=== PATIENT | female | born 1960 | race Caucasian/White ===

== ENCOUNTER → 2018-10-22 15:57 | Outpatient (CLI) | payer OTHER, SELFPAY ==
[2018-10-25 09:45] LABS: HPV Reflexed? NOT INDICATED
== END ==
PROVIDERS: Family Provider Family Medicine; PCP Family Medicine; Visit Provider Family Medicine
DX: Z12.4 Encounter for screening for malignant neoplasm of cervix (principal)
CPT/HCPCS: 88175; G0145

== ENCOUNTER → 2019-01-09 09:39 | Outpatient (CLI) | payer OTHER, SELFPAY ==
[2019-01-09 12:51] LABS: Absolute Lymphocyte Count 2.86 X10^3/ul (0.83-4.51); Absolute Neutrophil Count 5.5 X10^3/uL (2.0-7.7); Basophil# 0.06 X10^3/uL; Basophil% 0.6 % (0-1); Eosinophil# 0.19 X10^3/uL; Hematocrit 44.9 % (37-47); Hemoglobin 15.1 g/dl (12.0-15.0); Lymphocyte # 2.86 X10^3/ul (4.0); Lymphocyte % 29.6 % (19-41); Mean Corp Hgb Conc 33.6 g/gl (32-36); Mean Corpuscular Hgb 29.3 pg (27.0-32.0); Mean Corpuscular Volume 87.2 fL (81-99); Mean Platelet Vol. 10.2 fl (6.2-12.0); Monocyte# 1.03 X10^3/uL; Monocyte% 10.7 % (0-10); Neutrophil # 5.49 X10^3/uL (2.7-7.7); Neutrophil % 56.9 % (47-70); Platelet Count 311 K/mm3 (150-450); RBC Distribution Width CV 12.9 % (11.6-14.6); RBC Distribution Width SD 40.5 fl (35.1-43.9); Red Blood Count 5.15 M/mm3 (4.2-5.4); White Blood Count 9.7 K/mm3 (4.4-11.0)
[2019-01-09 12:52] LABS: POSITIVE COUNT NO; POSITIVE DIFFERENTIAL NO; POSITIVE MORPHOLOGY NO
[2019-01-09 12:57] LABS: Microalbumin:Creatinine Ratio 12.2 mg/g CRE (<30 mg/g CRE)
[2019-01-09 12:59] LABS: AST(SGOT) 21 U/L (15-37); Alanine Aminotransfer ALT/SGPT 27 U/L (13-56); Albumin, Serum 3.6 g/dL (3.2-5.0); Alkaline Phosphatase 110 U/L (45-117); Anion Gap 7 (5-15); BUN 15 mg/dL (7-18); BUN/Creat Ratio 17.4 RATIO (10-20); Calcium,Total 9.1 mg/dL (8.5-10.1); Chloride 108 mmol/L (98-107); Cholesterol 222 mg/dL (200); Creatinine, Serum 0.86 mg/dL (0.55-1.02); EST Glomerular Filtration Rate 72 mL/min (>60); Est Glom Filt Rate - Afr Amer 88 mL/min (>60); Globulin 3.7 g/dL (2.2-4.2); Glucose 166 mg/dL (74-106); High Density Lipoprotein 52 mg/dL; Potassium 4.3 mmol/L (3.5-5.1); Protein, Total 7.3 g/dL (6.4-8.2); Sodium Level 139 mmol/L (136-145); Triglycerides 183 mg/dL; Very Low Density Lipoprotein 37 mg/dL (5-40)
[2019-01-09 13:10] LABS: Hemoglobin A1c 7.3 % (4.2-6.3)
[2019-01-10 09:16] LABS: Color, Urine Yellow (Yellow); Glucose, Dipstick Normal (Normal); Ketone-Dipstick 5 mg/dl (Negative); Leukocyte Esterase-Dipstick 500 /ul (Negative); Nitrite-Dipstick Positive (Negative); Occult Blood-Urine 50 /ul (Negative); Protein-Dipstick Negative (Negative); Specific Gravity, Urine 1.025 (1.002-1.030); Urine Bilirubin Dipstick Negative (Negative); Urine Clarity Cloudy (Clear); Urine Urobilinogen Normal (Normal)
[2019-01-10 09:30] LABS: Mucous, Urine 0 SEEN /hpf (<or=2+); Red Blood Cells-Urine 0 SEEN /hpf (0-5)
[2019-01-10 09:31] LABS: Bacteria 4+ /hpf (None Seen); Squamous Epithelial Cells - UA 0-5 SEEN /hpf (5-10); White Blood Cells 0-5 SEEN /hpf (0-5)
== END ==
PROVIDERS: Family Provider Family Medicine; PCP Family Medicine; Visit Provider Family Medicine
DX: E11.65 Type 2 diabetes mellitus with hyperglycemia (principal); E78.5 Hyperlipidemia, unspecified; R53.83 Other fatigue
CPT/HCPCS: 36415; 80053; 80061; 81001; 82043; 82570; 83036; 85025; 87086; 87088; 87186

== ENCOUNTER → 2019-05-13 | Outpatient (CLI) | payer OTHER, SELFPAY | END | disposition home or self-care (01) | LOC: BFHLAB 15:56 | PROVIDERS: Family Provider Family Medicine; PCP Family Medicine; Visit Provider Family Medicine | DX: L03.113 Cellulitis of right upper limb (principal) | CPT/HCPCS: 87070; 87077; 87186; 87205 ==

== ENCOUNTER → 2019-06-17 | Outpatient (CLI) | payer OTHER, SELFPAY ==
[2019-05-24 09:47] VITALS: BMI 34.6
== END | disposition home or self-care (01) ==
LOC: BFHLAB 06-18 09:29
PROVIDERS: Family Provider Family Medicine; PCP Family Medicine; Visit Provider Family Medicine
DX: N30.00 Acute cystitis without hematuria (principal)
CPT/HCPCS: 87086; 87088

== ENCOUNTER 2019-07-07 17:09 | Emergency (ER) | payer OTHER, SELFPAY ==
[2019-05-24 09:47] VITALS: BMI 34.6
[2019-07-07 17:11] VITALS: BP 162/79; PULSE 81; RESP 17; TEMP 36.8; O2SAT 99; BMI 33.4
--- NOTE | 2019-07-07 17:57 | ED.VISSUMM ---
- ER Visit Summary Date of Service: 07/07/19 Chief Complaint: Abscess History of Present Illness: The patient is a 58 F who presents with abscess that is been getting progressively worse over the past 5 days. Patient states the pain is gradually gotten worse. Patient describes the pain as sharp and aching. Patient states her primary care physician called her and for doxycycline. Patient states this has not helped. Patient states her pain is worse with sitting. Patient admits to subjective fever at home. Patient admits to some drainage from the area. Physical Examination: Vital signs are stable. Patient is afebrile. Patient is in no acute distress. Oral mucosa is pink and moist. Neck is supple. Trachea is midline. There is no JVD noted. Heart was regular rate and rhythm. Lungs are clear and equal bilaterally. Abdomen is soft. Bowel sounds are normal. There is no tenderness. There is edema, erythema, and drainage from the left labia majora. There is tenderness to palpation. Cranial nerves II through XII are intact. There are no focal motor or sensory deficits noted. Test Results: CBC showed a mild leukocytosis of 11.6. Basic metabolic profile was essentially within normal limits. Emergency Department Course and Treatment: The right labial area was cleaned and anesthetized with 1% plain lidocaine locally. A cruciate incision was made using a #11 blade scalpel. Moderate amount of purulent drainage was expressed. Hemostats were used to break up loculations. Patient was unable to tolerate irrigation of the wound. Patient was given a dose of morphine prior to the procedure. Patient was given a dose of clindamycin here. Patient was instructed to use warm sitz baths. Patient was instructed to continue her doxycycline as previously prescribed. Patient was given a prescription for a short course of [place]. Patient was instructed to follow-up with her primary care physician in 3 to 5 days. Patient and family understood and were agreeable with the plan. All questions were answered. Disposition: Discharge home Impression: Left labial abscess This note was generated with [employer] dictation software. It may contain incorrect words, spelling, and punctuation that were not noted in review of the chart prior to signing ED Disposition - Plan for ED Patient: Disposition: Home or Assisted Living Diagnosis: Abscess of left genital labia Instructions: ABSCESS, Incision and Drainage Prescriptions: Hydrocodone Bitart/Apap 5-325 [[place] 5MG-325MG] 1 tab PO Q6H PRN PRN 3 Days #10 tab PRN Reason: Pain Prescription Printed Referrals: Leilani Brantley [Primary Care Provider] - 3-5 Days
[2019-07-07] MEDS: Morphine 4 MG/ML Syringe IV (18:05)
[2019-07-07] MEDS: 0.9% Normal Saline 1,000 ML 500 ML IV (18:05)
[2019-07-07 18:23] LABS: Absolute Lymphocyte Count 4.04 X10^3/uL (0.83-4.51); Absolute Neutrophil Count 6.2 X10^3/uL (2.0-7.7); Basophil# 0.08 X10^3/uL; Basophil% 0.7 % (0-1); Eosinophil# 0.14 X10^3/uL; Eosinophils% 1.2 % (0-5); Hematocrit 41.9 % (37-47); Lymphocyte # 4.04 X10^3/ul (4.0); Lymphocyte % 34.9 % (19-41); Mean Corp Hgb Conc 33.4 g/dL (32-36); Mean Corpuscular Hgb 28.4 pg (27.0-32.0); Mean Platelet Vol. 9.5 fl (6.2-12.0); Monocyte# 0.98 X10^3/uL; Monocyte% 8.5 % (0-10); NRBC Flagged by Analyzer 0 % (0-5); Neutrophil # 6.24 X10^3/uL (2.7-7.7); Neutrophil % 53.9 % (47-70); Platelet Count 397 K/mm3 (150-450); RBC Distribution Width CV 11.7 % (11.6-14.6); RBC Distribution Width SD 35.8 fl (35.1-43.9); Red Blood Count 4.93 M/mm3 (4.2-5.4); White Blood Count 11.6 K/mm3 (4.4-11.0)
[2019-07-07 18:36] LABS: Anion Gap 13 (5-15); BUN 15 mg/dL (7-18); BUN/Creat Ratio 21.2 RATIO (10-20); Calcium,Total 9.6 mg/dL (8.5-10.1); Chloride 102 mmol/L (98-107); Creatinine, Serum 0.71 mg/dL (0.55-1.02); EST Glomerular Filtration Rate 91 mL/min (>60); Est Glom Filt Rate - Afr Amer 110 mL/min (>60); Estimated Creatinine Clearance 89.25 ml/min; Glucose 178 mg/dL (74-106); Potassium 3.5 mmol/L (3.5-5.1); Sodium Level 139 mmol/L (136-145)
[2019-07-07 20:16] VITALS: BP 125/69; PULSE 67; RESP 18; O2SAT 97
== END 2019-07-07 20:17 | disposition home or self-care (01) ==
PROVIDERS: Emergency Provider Emergency Medicine; Family Provider Family Medicine; PCP Family Medicine
DX: N76.4 Abscess of vulva (principal); E66.9 Obesity, unspecified; E11.9 Type 2 diabetes mellitus without complications
CPT/HCPCS: 56405; 80048; 85025; 96365; 96366; 96375; 99283; J7030; A4216

== ENCOUNTER → 2021-02-19 12:36 | Outpatient (CLI) | payer OTHER, MEDICARE, SELFPAY ==
--- NOTE | 2021-02-19 12:37 | MRI_ITS ---
STUDY: MRI RIGHT WRIST WITHOUT CONTRAST REASON FOR EXAM: Right hand and arm numbness, pain. TECHNIQUE: Standardized fat and water weighted pulse sequences were obtained in all 3 orthogonal planes. COMPARISON: Radiographs 12/29/2020, 11/19/2020. FINDINGS: Normal visualized distal radius and ulna. Normal distal radioulnar articulation (DRUJ). Normal triangular fibrocartilaginous complex (TFCC). There is a small cyst in the scaphoid (inversion recovery coronal image 14). Otherwise, unremarkable carpal bones. Normal radiocarpal, intercarpal and midcarpal articulations. Normal pisotriquetral articulation. Normal visualized interosseous scapholunate ligament. Normal extensor tendons. There is mild flexor tenosynovitis (inversion recovery axial images 3-26). Normal visualized median nerve. Normal carpometacarpal articulation of the thumb. Normal second through fifth carpometacarpal articulations. Normal visualized metacarpal bones. There is no demonstrated soft tissue abnormality. MRI/Upper Ext Joint Only(Routine) IMPRESSION: Mild flexor tenosynovitis. Electronically Signed: Berhane Georges MD at 13:56 EDT Tel , Service support ,
== END ==
PROVIDERS: PCP Family Medicine; Referring Provider Orthopaedic Surgery; Visit Provider Orthopaedic Surgery
DX: M25.331 Other instability, right wrist (principal)
CPT/HCPCS: 73221

== ENCOUNTER → 2022-02-09 | Outpatient (CLI) | payer OTHER, MEDICARE, SELFPAY ==
[2022-02-09 17:05] LABS: Absolute Lymphocyte Count 3.95 X10^3/uL (0.83-4.51); Absolute Neutrophil Count 5.6 X10^3/uL (2.0-7.7); Basophil# 0.09 X10^3/uL; Basophil% 0.8 % (0-1); Eosinophil# 0.14 X10^3/uL; Eosinophils% 1.3 % (0-5); Hematocrit 42.4 % (37-47); Hemoglobin 13.3 g/dL (12.0-15.0); Lymphocyte # 3.95 X10^3/ul (0.83-4.51); Lymphocyte % 36.4 % (19-41); Mean Corp Hgb Conc 31.4 g/dL (32-36); Mean Corpuscular Hgb 26.3 pg (27.0-32.0); Mean Corpuscular Volume 83.8 fL (81-99); Mean Platelet Vol. 9.2 fl (6.2-12.0); Monocyte# 1.02 X10^3/uL; Monocyte% 9.4 % (0-10); NRBC Flagged by Analyzer 0 % (0-5); Neutrophil % 51.6 % (47-70); Platelet Count 469 K/mm3 (150-450); RBC Distribution Width SD 42.7 fl (35.1-43.9); Red Blood Count 5.06 M/mm3 (4.2-5.4); White Blood Count 10.9 K/mm3 (4.4-11.0)
[2022-02-09 17:58] LABS: ALB/GLOB Ratio 0.6 RATIO (0.9-2.4); AST(SGOT) 11 U/L (15-37); Alanine Aminotransfer ALT/SGPT 16 U/L (13-56); Albumin, Serum 2.9 g/dL (3.2-5.0); Alkaline Phosphatase 121 U/L (45-117); Anion Gap 8 (5-15); BUN 20 mg/dL (7-18); BUN/Creat Ratio 24.9 RATIO (10-20); Calcium,Total 9.1 mg/dL (8.5-10.1); Chloride 101 mmol/L (98-107); Cholesterol 190 mg/dL (200); EST Glomerular Filtration Rate 78 mL/min (>60); Est Glom Filt Rate - Afr Amer 94 mL/min (>60); Globulin 4.9 g/dL (2.2-4.2); Glucose 176 mg/dL (74-106); High Density Lipoprotein 44 mg/dL; Potassium 4.1 mmol/L (3.5-5.1); Protein, Total 7.8 g/dL (6.4-8.2); Sodium Level 135 mmol/L (136-145); Triglycerides 232 mg/dL; Very Low Density Lipoprotein 46 mg/dL (5-40)
[2022-02-09 18:00] LABS: Microalbumin,Random Urine 50.1 mg/L (NO RANGE EST.); Microalbumin:Creatinine Ratio 25.2 mg/g CRE (<30 mg/g CRE)
[2022-02-09 18:25] LABS: Erythrocyte Sedimentation Rate 81 mm/hr (0-30)
[2022-02-11 20:01] LABS: ANTINUCLEAR ANTIBODIES DIRECT Negative (Negative)
[2022-02-12 10:50] LABS: CCP IgG Antibodies > 250 units (0-19)
== END | disposition home or self-care (01) ==
LOC: LAB 15:57
PROVIDERS: PCP Family Medicine; Referring Provider Family Medicine; Visit Provider Family Medicine
DX: Z00.00 Encounter for general adult medical examination without abnormal findings (principal); E11.65 Type 2 diabetes mellitus with hyperglycemia; M25.50 Pain in unspecified joint; M79.10 Myalgia, unspecified site; Z51.81 Encounter for therapeutic drug level monitoring
CPT/HCPCS: 36415; 80053; 80061; 82043; 82570; 85025; 85652; 86038; 86140; 86200; 86225; 86235; 86431

== ENCOUNTER 2023-02-08 13:22 | Emergency (ER) | payer MEDICARE, SELFPAY ==
[2023-02-08 13:23] VITALS: BP 182/119; PULSE 99; RESP 16; TEMP 36.6; O2SAT 98
--- NOTE | 2023-02-08 13:40 | EDS_ITS ---
HPI HPI - GI History of Present Illness Chief Complaint: Nausea/Vomiting/Diarrhea Informant: patient Nausea/Vomiting/Emesis GI Symptom: Positive for Nausea and Vomiting Onset: Weeks (1) Quality: Positive for Nonbilious; Negative for Blood streaks, Coffee ground or Hematemesis Diarrhea/Melena/Hematochezia GI Symptom: Positive for Diarrhea and Melena; Negative for Hematochezia Onset: Weeks (1) Stool Quality: Positive for Watery and Black Associated Symptoms Associated Symptoms: Negative for Dysuria, Frequency or Hematuria Narrative Narrative: Patient presents with nausea, vomiting, and diarrhea that has been constant for the past week. Patient states that she felt like she just had the flu and it would get better. Patient states it has been persistent. Patient states that today she noted some dark stools. Patient denies any hematemesis or coffee- ground emesis. Patient states she is unable to keep anything down including water and fluids. Patient denies any abdominal pain. Patient denies any fevers or chills. Patient denies any dysuria, hematuria, urinary frequency. Patient does admit to a mild headache. [facility] Medical History abscess right facial cheek abscess right wrist Anxiety disorder Carpal tunnel syndrome Depression Diabetes High cholesterol IBS (irritable bowel syndrome) Leukocytosis Polyclonal gammopathy Home Medications glipizide 10 mg tablet 10 mg PO DAILY@0730 06/14/17 [History Last Taken Unknown] venlafaxine 150 mg tablet,extended release 24 hr 150 mg PO DAILY 06/14/17 [History Last Taken 06/16/17 06:00] zolpidem 10 mg tablet 10 mg PO QHS 06/14/17 [History Last Taken Unknown] gabapentin 600 mg tablet,extended release 24 hr 600 mg PO TID 05/24/19 [History Last Taken Unknown] sitagliptin phos 100 mg-metformin ER 1,000 mg tablet,extend rel 24h mp (Janumet XR) 1 tab PO DAILY 05/24/19 [History Last Taken Unknown] tizanidine 4 mg capsule 4 mg PO TID 05/24/19 [History Last Taken Unknown] meloxicam 15 mg tablet (Mobic) 15 mg PO DAILY #30 tabs 03/12/21 [Rx Last Taken Unknown] insulin degludec 100 unit/mL (3 mL) subcutaneous pen (Tresiba FlexTouch U-100 insulin) 26 unit subcut DAILY 06/17/22 [History Last Taken Unknown] leucovorin calcium 5 mg tablet tablet PO 06/17/22 [History Last Taken Unknown] lorazepam 0.5 mg tablet 0.5 mg PO BID 06/17/22 [History Last Taken Unknown] Allergy/AdvReac Type Severity Reaction Status Date / Time No Known Allergies Allergy Verified 02/08/23 13:24 Family History Brother Colon cancer Father Hypertension Mother Hypertension Diabetes Surgical History history anterior cervical laminectomy history closed reduction nasal fracture History of right knee surgery History of tubal ligation history right ankle surgery Social History household members: spouse and other details: father housing: house Smoking Status: Former smoker quit date: 10/09/05 how long ago did patient quit smoking: smoked 1-1.5yrs alcohol intake: current alcohol intake frequency: a few times a week substance use type: does not use what type of physical activity do you participate in: none do you feel safe at home: Yes ROS ROS ED Constitutional Constitutional ED: Denies chills or fever(s) Eyes Eyes: Denies blurry vision or change in vision ENT ENT ED: Denies rhinorrhea or sore throat Cardiovascular Cardiovascular: Denies chest pain or palpitations Respiratory/Chest Respiratory/Chest: Reports cough; Denies dyspnea Gastrointestinal Gastrointestinal: Reports diarrhea, nausea and vomiting; Denies abdominal pain Genitourinary Genitourinary ED: Denies dysuria or hematuria Musculoskeletal Musculoskeletal: Denies back pain or neck pain Integumentary Denies abscess or rash Neurologic Neurologic: Reports headache(s); Denies weakness Allergic/Immunologic Allergic/Immunologic ED: Denies mouth swelling or urticaria EXAM Physical Exam Const Vital Signs: 02/08/23 13:23 Temperature 97.8 F Temperature Source Temporal Pulse Rate 99 Respiratory Rate 16 Blood Pressure 182/119 H Blood Pressure Mean 140 Pulse Ox 98 Oxygen Delivery Method Room Air Positive well nourished, well developed and obese General Appearance ED: well developed and NAD Nutritional Appearance: obese HEENT Reports moist mucous membranes Neck supple and no JVD Resp normal respiratory effort and clear to auscultation bilaterally Cardio regular rate and regular rhythm GI normal to inspection, nondistended, normoactive bowel sounds Palpation: soft and tender epigastric, LLQ, RLQ, LUQ, RUQ, periumbilical and suprapubic; Negative for guarding or rebound tenderness present Rectal Exam: visual inspection normal and normal sphincter tone Extremity normal to inspection General Extremety ED: Negative for edema or tenderness General Extremity: Negative for edema Neuro oriented x3, CN's II-XII intact bilaterally and no sensory deficits noted Sensorium / Orientation: alert Motor Exam: strength 5/5 throughout Psych mental status grossly normal Skin no rashes or lesions noted MDM MDM MDM Narrative Medical decision making narrative: Functional diagnosis includes gastroenteritis, colitis, diverticulitis, diabetic ketoacidosis, bowel obstruction, perforation, pancreatitis, urinary tract infection, pyelonephritis, and mesenteric adenitis. CBC will be obtained to assess for leukocytosis and anemia. Comprehensive metabolic profile will be obtained to assess for hepatic function, renal function, and electrolyte abnormality. Lipase will be obtained to assess for pancreatitis. Serum acetone will be obtained to assess for ketosis. Urinalysis will be obtained to assess for urinary tract infection and hematuria. CT scan of the abdomen pelvis will be obtained to assess for bowel obstruction and perforation. Stool specimen will be obtained to assess for occult bleeding. Lab Data Attestation: I reviewed the patient's lab results. Lab results narrative: CBC was reviewed. There is a slight leukocytosis of 11.3. Hemoglobin was 16.3 and hematocrit is 47.1. Comprehensive metabolic profile was reviewed. Sodium was slightly low at 125. Potassium was 2.9. Chloride was 85. Anion gap was slightly elevated at 17. CO2 was normal at 23. Glucose was elevated at 317. Lipase was within normal limits. Serum acetone level was reviewed and was small. Labs: Laboratory Results - last 24 hr 02/08/23 02/08/23 02/08/23 14:00 14:00 14:00 WBC 11.3 H RBC 5.90 H Hgb 16.3 H Hct 47.1 H MCV 79.8 L MCH 27.6 MCHC 34.6 RDW Std Deviation 37.1 RDW Coeff of Ned 12.9 Plt Count 250 MPV 10.0 Immature Gran % (Auto) 1.800 H Neut % (Auto) 77.2 H Lymph % (Auto) 12.8 L [place] % (Auto) 7.5 Eos % (Auto) 0.3 Baso % (Auto) 0.4 Absolute Neuts (auto) 8.7 H Absolute Lymphs (auto) 1.45 Nucleated RBC % 0 Sodium 125 L Potassium 2.9 L Chloride 85 L Carbon Dioxide 23.0 Anion Gap 17 H BUN 24 H Creatinine 0.82 Estim Creat Clear Calc 70.95 Est GFR (MDRD) Af Amer 91 Est GFR (MDRD) Non-Af 75 BUN/Creatinine Ratio 29.1 H Glucose 317 H Calcium 8.9 Total Bilirubin 0.50 AST 39 H ALT 31 Alkaline Phosphatase 115 Total Protein 7.5 Albumin 2.2 L Globulin 5.3 H Albumin/Globulin Ratio 0.4 L Lipase 75 Acetone Level SMALL H Treatment and Re-Evaluation :: Patient was given IV fluids, morphine, and Zofran. Care of patient turned over to the oncoming physician pending lab results and CT results. Discharge Plan Triage Chief Complaint: Nausea/Vomiting/Diarrhea ED Provider: Abelardo Truong Dx/Rx/DC Orders Clinical Impression: Nausea, vomiting, and diarrhea, Hyponatremia, Hypokalemia, Hyperglycemia Prescriptions: No Action Janumet XR 100-1,000 mg tablet, ER multiphase 24 hr 1 tab PO DAILY tizanidine 4 mg capsule 4 mg PO TID meloxicam [Mobic] 15 mg tablet 15 mg PO DAILY Qty: 30 0RF leucovorin calcium 5 mg tablet PO Tresiba FlexTouch U-100 100 unit/mL (3 mL) insulin pen 26 unit subcut DAILY lorazepam 0.5 mg tablet 0.5 mg PO BID Label Comments: TAKE 1 TABLET BY MOUTH TWICE A DAY NEEDED FOR ANXIETY glipizide 10 MG tablet 10 mg PO DAILY@0730 zolpidem 10 MG tablet 10 mg PO QHS venlafaxine 150 MG tablet extended release 24hr 150 mg PO DAILY gabapentin 600 mg tablet extended release 24 hr 600 mg PO TID Primary Care Provider: Leilani Brantley Referrals: Leilani Brantley OLS [[facility]] -
[2023-02-08 14:15] LABS: Absolute Lymphocyte Count 1.45 X10^3/uL (0.83-4.51); Absolute Neutrophil Count 8.7 X10^3/uL (2.0-7.7); Basophil# 0.04 X10^3/uL; Basophil% 0.4 % (0-1); Eosinophil# 0.03 X10^3/uL; Eosinophils% 0.3 % (0-5); Hematocrit 47.1 % (37-47); Hemoglobin 16.3 g/dL (12.0-15.0); Lymphocyte # 1.45 X10^3/ul (0.83-4.51); Lymphocyte % 12.8 % (19-41); Mean Corp Hgb Conc 34.6 g/dL (32-36); Mean Corpuscular Hgb 27.6 pg (27.0-32.0); Mean Corpuscular Volume 79.8 fL (81-99); Monocyte# 0.85 X10^3/uL; Monocyte% 7.5 % (0-10); NRBC Flagged by Analyzer 0 % (0-5); Neutrophil # 8.74 X10^3/uL (2.7-7.7); Neutrophil % 77.2 % (47-70); Platelet Count 250 K/mm3 (150-450); RBC Distribution Width CV 12.9 % (11.6-14.6); RBC Distribution Width SD 37.1 fl (35.1-43.9); White Blood Count 11.3 K/mm3 (4.4-11.0)
[2023-02-08] MEDS: Ondansetron 4 MG/2 ML Vial IV (14:20)
[2023-02-08] MEDS: Morphine 4 MG/ML Syringe IV (14:20)
[2023-02-08] MEDS: 0.9% Normal Saline 1,000 ML 1000 ML IV (14:20)
[2023-02-08 14:26] VITALS: BMI 31.6
[2023-02-08 14:30] LABS: ALB/GLOB Ratio 0.4 RATIO (0.9-2.4); AST(SGOT) 39 U/L (15-37); Alanine Aminotransfer ALT/SGPT 31 U/L (13-56); Albumin, Serum 2.2 g/dL (3.2-5.0); Alkaline Phosphatase 115 U/L (45-117); Anion Gap 17 (5-15); BUN 24 mg/dL (7-18); BUN/Creat Ratio 29.1 RATIO (10-20); Calcium,Total 8.9 mg/dL (8.5-10.1); Chloride 85 mmol/L (98-107); Creatinine, Serum 0.82 mg/dL (0.55-1.02); EST Glomerular Filtration Rate 75 mL/min (>60); Est Glom Filt Rate - Afr Amer 91 mL/min (>60); Estimated Creatinine Clearance 70.95 ml/min; Globulin 5.3 g/dL (2.2-4.2); Glucose 317 mg/dL (74-106); Lipase 75 U/L (13-75); Potassium 2.9 mmol/L (3.5-5.1); Protein, Total 7.5 g/dL (6.4-8.2); Sodium Level 125 mmol/L (136-145)
[2023-02-08 15:23] VITALS: BP 123/84; PULSE 72; RESP 16; O2SAT 99
[2023-02-08] MEDS: Potassium Chloride Oral Tablet 20 MEQ 40 MEQ PO (15:26)
--- NOTE | 2023-02-08 15:35 | CT_ITS ---
INDICATION: Abdominal pain -- IV PO Contrast EXAMINATION: CT ABDOMEN AND PELVIS WITH CONTRAST - CT Abdomen And Pelvis W/ Contrast Injection TECHNIQUE: Helically acquired images were obtained of the abdomen and pelvis following IV contrast. A radiation dose optimization technique was used for this scan. IV Contrast dosage and agent: 100 cc Isovue-300 Oral contrast: Yes COMPARISON: None. FINDINGS: LOWER CHEST: Right middle lobe consolidation incompletely imaged. 3 mm noncalcified nodule inferior lingula. No cardiomegaly or pericardial effusion. LIVER: Homogeneous. No focal mass. GALLBLADDER AND BILIARY TREE: No calcified gallstones. No gallbladder distension or wall edema. No intra- or extrahepatic biliary ductal dilation. PANCREAS: No focal cystic or solid mass. SPLEEN: Normal size without focal cystic or solid mass. ADRENAL GLANDS: No nodules. KIDNEYS AND URETERS: Normal renal size and position. No hydronephrosis. PERITONEUM: No ascites or free air. BOWEL: Normal appendix. No stomach or bowel distension. Thickening of the wall of the proximal duodenum with mild adjacent fat stranding. LYMPH NODES: No enlarged mesenteric or retroperitoneal lymph nodes. VESSELS: Aorta is non-dilated. URINARY BLADDER: Unremarkable. REPRODUCTIVE ORGANS: No pelvic masses. ABDOMINAL WALL: No discrete abdominal or pelvic wall hernia. BONES: No acute or aggressive abnormality. CT/Abdomen/Pelvis WITH Contrast IMPRESSION: Duodenitis involving the proximal duodenum. Right middle lobe consolidation incompletely imaged. Although likely infectious or inflammatory complete evaluation by chest CT is recommended. 3 mm indeterminate nodule in the lingula. Per Fleischner Society guidelines no follow-up recommended. If patient is at high risk for malignancy where a one-year CT should be considered. Electronically Signed: Alonso Rojas MD at 17:20 EDT ,
[2023-02-08 15:45] LABS: Allen Test Positive; Base Excess -2 mmol/L (-2 to +2); Bicarbonate 21.7 mmol/L (22-26); Blood Gas Specimen Type ART; O2 Delivery Device Room Air; PO2 55 mmHG (75-100); SITE L Radial; SO2 90 % (95-99); Total Carbon Dioxide 23 mmol/L; pCO2 30.1 mmHg (35-45); pH 7.47 (7.35-7.45)
[2023-02-08 17:00] VITALS: BP 174/87; PULSE 99; RESP 28; O2SAT 95
[2023-02-08 17:51] LABS: Mucous, Urine 0 SEEN /hpf (<or=2+)
[2023-02-08 17:52] LABS: Color, Urine Yellow (Yellow); Glucose, Dipstick 1000 mg/dl (Normal); Leukocyte Esterase-Dipstick Negative /ul (Negative); Nitrite-Dipstick Negative (Negative); Occult Blood-Urine 250 /ul (Negative); Protein-Dipstick 100 mg/dl (Negative); Specific Gravity, Urine 1.015 (1.002-1.030); Urine Bilirubin Dipstick Negative (Negative); Urine Clarity Clear (Clear); Urine Urobilinogen Normal (Normal)
[2023-02-08 18:01] LABS: Ketone-Dipstick 150 mg/dl (Negative)
[2023-02-08 19:00] VITALS: BP 174/89; PULSE 109; RESP 18; O2SAT 97
[2023-02-08 19:45] LABS: Anion Gap 8 (5-15); BUN 20 mg/dL (7-18); BUN/Creat Ratio 29.3 RATIO (10-20); Calcium,Total 8.2 mg/dL (8.5-10.1); Chloride 90 mmol/L (98-107); Creatinine, Serum 0.68 mg/dL (0.55-1.02); EST Glomerular Filtration Rate 93 mL/min (>60); Est Glom Filt Rate - Afr Amer 113 mL/min (>60); Estimated Creatinine Clearance 85.56 ml/min; Glucose 253 mg/dL (74-106); Potassium 3.2 mmol/L (3.5-5.1); Sodium Level 125 mmol/L (136-145)
[2023-02-08] MEDS: Amox/Clavulanate 875 MG Tablet PO (20:39)
[2023-02-08 21:05] VITALS: BP 174/59; PULSE 102; RESP 15; O2SAT 97
[2023-02-08 21:42] LABS: Bacteria RARE /hpf (None Seen); Red Blood Cells-Urine 5-10 SEEN /hpf (0-5); Squamous Epithelial Cells - UA 0-5 SEEN /hpf (5-10); White Blood Cells 0-5 SEEN /hpf (0-5)
== END 2023-02-08 21:11 | disposition home or self-care (01) ==
PROVIDERS: Emergency Medicine; Emergency Provider Emergency Medicine; PCP Family Medicine; Visit Provider Emergency Medicine
DX: R11.2 Nausea with vomiting, unspecified (principal); R19.7 Diarrhea, unspecified; E87.1 Hypo-osmolality and hyponatremia; E87.6 Hypokalemia; E66.9 Obesity, unspecified; R73.9 Hyperglycemia, unspecified; Z87.891 Personal history of nicotine dependence
CPT/HCPCS: 36600; 74177; 80048; 80053; 81001; 82009; 82274; 82803; 83690; 85025; 96361; 96374; 96375; 99284; J7030; Q9967; A4216; J2405

== ENCOUNTER → 2023-12-25 | Outpatient (CLI) | payer MEDICARE, SELFPAY ==
--- NOTE | 2023-12-25 14:50 | BI_ITS ---
MAMMOGRAPHY - BILATERAL SCREENING REASON FOR EXAM: Female, 63 years old. Routine annual screening examination. PERTINENT HISTORY: Non-contributory. TECHNIQUE: Digital bilateral breast trevor (3D mammographic acquisition) in the CC and MLO projections. 2-D mediolateral oblique (MLO) and craniocaudad (CC) views of both breasts were obtained. CAD: Full Field Digital Mammography with Computer Added Detection was performed. COMPARISON: None. Baseline examination. FINDINGS: Breast Composition: The breasts are almost entirely fatty. There are no dominant masses or suspicious calcifications. No other significant abnormalities are identified. BI/SCRN MAMM (CAD)W/TREVOR BILAT IMPRESSION: Negative screening mammogram. Yearly followup mammogram recommended. (A) ASSESSMENT CATEGORY: BIRADS Category 1: Negative. A letter regarding these results will be sent to the patient by the facility within 30 days. Approximately 10% of breast cancers are not detected by mammography. A normal mammogram should not delay biopsy of a clinically suspicious abnormality. [id number] Electronically Signed: Benny Kern MD at 15:38 EDT ,
== END | disposition home or self-care (01) ==
LOC: OPBI 14:48
PROVIDERS: PCP Family Medicine; Referring Provider Family Medicine; Visit Provider Family Medicine
DX: Z12.31 Encounter for screening mammogram for malignant neoplasm of breast (principal)
CPT/HCPCS: 77063; 77067

== ENCOUNTER → 2024-06-26 | Outpatient (CLI) | payer MEDICARE, SELFPAY ==
--- NOTE | 2024-06-26 15:47 | RAD_ITS ---
STUDY: X-RAY - LEFT HAND REASON FOR EXAM: Female, 63 years old. PAIN TECHNIQUE: 4 views of the left hand. COMPARISON: None. FINDINGS: There is mild radiocarpal arthrosis with subchondral cyst formation. Normal distal radioulnar joint. Intact visualized carpal bones. There are cysts/erosions in the scaphoid, triquetrum, capitate, and hamate. Normal carpometacarpal articulation of the thumb. Normal second through fifth carpometacarpal joints. Normal metacarpi. Normal metacarpophalangeal joint of the thumb. Normal interphalangeal joint of the thumb. There is a metallic ring surrounding the proximal phalanx of the thumb. Normal distal phalanx of the thumb. Normal metacarpophalangeal joints of the second through fourth fingers. There is a mildly displaced fracture of the lateral/radial corner of the base of the fifth proximal phalanx. Normal phalanges of the second through fourth fingers. RAD/Hand Min 3 Views IMPRESSION: Mildly displaced fracture of the lateral/radial corner of the base of the fifth proximal phalanx. Mild radiocarpal arthrosis with subchondral cyst formation. Cysts/erosions in the scaphoid, triquetrum, capitate, and hamate. Electronically Signed: All Leary MD at 16:00 EDT ,
== END | disposition home or self-care (01) ==
PROVIDERS: PCP Family Medicine; Referring Provider Nurse Practitioner Family; Visit Provider Nurse Practitioner Family
DX: M79.642 Pain in left hand (principal)
CPT/HCPCS: 73130

== ENCOUNTER 2024-11-22 18:32 | Inpatient (IN) | payer MEDICARE, SELFPAY ==
[2024-11-22 18:33] VITALS: BP 112/74; PULSE 88; RESP 17; TEMP 36.5; O2SAT 97; BMI 31.5
--- NOTE | 2024-11-22 20:23 | EKG12_ITS ---
Test Reason : DYSRHYTHMIA Blood Pressure : */* mmHG Vent. Rate : 77 BPM Atrial Rate : 77 BPM P-R Int : 170 ms QRS Dur : 74 ms QT Int : 386 ms P-R-T Axes : 63 -7 65 degrees QTcB Int : 436 ms Normal sinus rhythm Nonspecific ST abnormality Abnormal ECG Confirmed by BLANCA TAVERA, EDWIN ([id number]), image editor FILIBERTO BRADEN ([id number]) on 11/25/2024 8:16:54 AM Referred By: Confirmed By: EDWIN RIOS MD
[2024-11-22 20:32] VITALS: BP 96/74; PULSE 86; RESP 18; O2SAT 94
--- NOTE | 2024-11-22 20:33 | EX.ED.DYSGE1 ---
HPI History of Present Illness Chief Complaint: Numb/Ting Narrative Narrative: Chief complaint and HPI: Generalized weakness. 63-year-old female with past medical history of DM, peripheral neuropathy, rheumatoid arthritis who presents for evaluation of generalized weakness. Patient states she was talking to her when she turned around and her legs gave out on her. She states this caused her to fall to the floor. Did not hit her head. No LOC. Not on blood thinners. Patient states that it felt like someone ripped the rug out from under me. She states at baseline she has bilateral peripheral neuropathy. She denies any new numbness or tingling in the legs. She denies any fever, chills, URI symptoms, chest pain, shortness of breath, cough, abdominal pain, nausea, vomiting, dysuria, diarrhea, constipation, back pain. States that she was able to ambulate after the fall. Denies any neurological deficits. Denies any injury from the fall other than some mild left-sided pelvic/hip Review of systems: See HPI Medications: As listed on the chart Allergies: As listed on the chart PFSH: Per chart Vital signs: As listed on the chart. Reviewed. Physical exam: Gen: A&O x3, NAD Head: Normocephalic, atraumatic Eyes: No sclera icterus, conjunctiva clear, PERRL ENT: Moist mucous membranes Neck: Trachea midline, No JVD CV: RRR, no murmurs, no peripheral edema Resp: Lungs CTA BL, no w/r/c GI: Abd soft, non-distended, non-tender, no r/r/g Musc: Full ROM, no deformity, strength +5 out of 5, DP/PT pulses plus 2 out of 4, back nontender to palpation Skin: Warm, dry Neuro: Alert, oriented, grossly intact, sensation intact Psych: Cooperative, appropriate mood and affect [facility] Medical History abscess right facial cheek abscess right wrist Anxiety disorder Carpal tunnel syndrome Depression Diabetes High cholesterol IBS (irritable bowel syndrome) Leukocytosis Polyclonal gammopathy Home Medications ?Medication ?Instructions ?Recorded ?Last Taken ?Type zolpidem 10 mg tablet 10 mg PO QHS 06/14/17 11/21/24 History gabapentin 600 mg tablet,extended 600 mg PO TID 05/24/19 11/22/24 08:00 History release 24 hr leucovorin calcium 5 mg tablet 5 mg PO DAILY 06/17/22 11/22/24 08:00 History lorazepam 0.5 mg tablet 0.5 mg PO BID 06/17/22 Unknown History ondansetron 4 mg disintegrating 4 mg PO Q8H PRN PRN Nausea #10 tabs 02/08/23 Unknown Rx tablet cyclobenzaprine 10 mg tablet 10 - 30 mg PO DAILY PRN muscle 11/22/24 Unknown History spasticity folic acid 1 mg tablet 1 mg PO DAILY 11/22/24 11/21/24 History glipizide 10 mg tablet, extended 20 mg PO DAILY 11/22/24 11/22/24 History release 24 hr insulin regular human 100 unit/mL 10 unit subcut TID 11/22/24 11/22/24 09:00 History (3 mL) subcutaneous pen (Novolin R FlexPen) methotrexate sodium 2.5 mg tablet 20 mg PO QWEEK 11/22/24 11/21/24 History nabumetone 500 mg tablet 500 mg PO BID 11/22/24 11/21/24 History omeprazole 40 mg capsule,delayed 40 mg PO DAILY PRN gastric reflux 11/22/24 Unknown History release tizanidine 4 mg tablet 4 mg PO TID PRN PRN muscle spasm 11/22/24 Unknown History venlafaxine 150 mg 150 mg PO DAILY 11/22/24 11/21/24 History capsule,extended release 24 hr Allergy/AdvReac Type Severity Reaction Status Date / Time No Known Allergies Allergy Verified 02/08/23 13:24 Family History Brother Colon cancer Father Hypertension Mother Hypertension Diabetes Surgical History history anterior cervical laminectomy history closed reduction nasal fracture History of right knee surgery History of tubal ligation history right ankle surgery Social History household members: spouse and other details: father housing: house Smoking Status: Former smoker quit date: 10/09/05 how long ago did patient quit smoking: smoked 1-1.5yrs alcohol intake: current alcohol intake frequency: a few times a week substance use type: does not use what type of physical activity do you participate in: none do you feel safe at home: Yes EXAM Physical Exam Const Vital Signs: 11/22/24 18:33 11/22/24 20:32 11/22/24 22:00 Temperature 97.7 F L Temperature Source Oral Pulse Rate 88 86 81 Respiratory Rate 17 18 18 Blood Pressure 112/74 96/74 113/71 Blood Pressure Mean 86 81 85 Pulse Ox 97 94 96 Oxygen Delivery Method Room Air Room Air Room Air 11/22/24 23:49 Temperature 98.6 F Temperature Source Pulse Rate 75 Respiratory Rate 18 Blood Pressure 106/70 Blood Pressure Mean 82 Pulse Ox 95 Oxygen Delivery Method MDM MDM MDM Narrative Medical decision making narrative: 63-year-old female with past medical history of DM, peripheral neuropathy, rheumatoid arthritis who presents for evaluation of generalized weakness. Differential diagnosis includes but is not limited to electrolyte abnormality, pneumonia, ACS, UTI, dehydration. NS bolus ordered. Laboratory workup ordered including chest x-ray and pelvic x-ray. EKG and chest x-ray reviewed see below. CBC with mild leukocytosis of 13.8. No anemia. BMP relatively unremarkable except for hyperglycemia, patient is a diabetic. Magnesium level unremarkable. No transaminitis. Troponin elevated at 1237. Patient not having chest pain. No ST elevations on EKG. Repeat EKG ordered. Patient still not having chest pain. Again nonspecific changes. No clear depressions or elevation. Aspirin ordered for concern of NSTEMI. Will start heparin however will discuss with cardiology first. I spoke with Dr. Swain who agrees with heparin, no indication for cardiac cath at this time. Lactic acid elevated at 4.6. Patient states she has been eating and drinking well. She denies any infectious symptoms. Chest x-ray without pneumonia. UA negative for UTI. Another NS bolus ordered. No clear etiology for patient's lactic acidosis at this time. Given patient's NSTEMI she will warrant admission. Patient and confirmed understanding of the plan. Patient was discussed with Dr. Garrido who accepted admission. EKG: Interpreted by me/EM physician: EKG shows normal sinus rhythm with nonspecific ST changes. Heart rate 77. Repeat EKG shows normal sinus rhythm again with nonspecific ST changes but no clear depression or elevation. Heart rate 76 Diagnostic: Interpreted by me/EM physician: Chest x-ray without pneumonia, effusion, cardiomegaly, pneumothorax. Pelvic x-ray without fracture or dislocation. 30 minutes of critical care time utilized in managing the patient. This is due to high probability of and deterioration of the patient based on the patient's condition and excludes any separately billable procedures. Impression Impression: 1. NSTEMI 2. Lactic acidosis 3. Generalized weakness 4. Hyperglycemia, known diabetic Lab Data Labs: Laboratory Results - last 24 hr 11/22/24 11/22/24 20:47 21:15 WBC 13.8 H RBC 4.79 Hgb 14.9 Hct 43.6 MCV 91.0 MCH 31.1 MCHC 34.2 RDW Std Deviation 44.3 H RDW Coeff of Ned 13.3 Plt Count 330 MPV 10.1 Immature Gran % (Auto) 0.900 Neut % (Auto) 68.2 Lymph % (Auto) 19.2 Mathews % (Auto) 9.8 Eos % (Auto) 0.9 Baso % (Auto) 1.0 Absolute Neuts (auto) 9.4 H Absolute Lymphs (auto) 2.65 Nucleated RBC % 0 PT 13.4 INR 1.0 APTT 22.0 L Sodium 135 L Potassium 4.2 Chloride 101 Carbon Dioxide 23.0 Anion Gap 11 BUN 21 H Creatinine 1.02 Estim Creat Clear Calc 67.19 Est GFR (MDRD) Af Amer 71 Est GFR (MDRD) Non-Af 58 L BUN/Creatinine Ratio 20.6 H Glucose 338 H Lactic Acid 4.6 H* Calcium 9.6 Magnesium 2.1 Total Bilirubin 0.30 AST 21 ALT 19 Alkaline Phosphatase 147 H Troponin I High Sens 1237 H* Total Protein 7.2 Albumin 3.4 Globulin 3.8 Albumin/Globulin Ratio 0.9 Urine Color Yellow Urine Clarity Clear Urine pH 5.0 Ur Specific [place] 1.025 Urine Protein 30 H Urine Glucose (UA) 1000 H Urine Ketones 50 H Urine Occult Blood 50 H Urine Nitrite Negative Urine Bilirubin Negative Urine Urobilinogen Normal Ur Leukocyte Esterase 25 H Urine RBC 0-5 SEEN Urine WBC 0-5 SEEN Ur Squamous Epith Cells 0-5 SEEN Urine Bacteria 1+ Hyaline Casts 0-5 SEEN Urine Mucus 1+ Urine Yeast 1+ Radiography Diagnostic Testing: Clinical Impression(s) from Imaging Studies Chest X-Ray 11/22/24 21:00 IMPRESSION: 1. No acute cardiopulmonary process. Reading Location: [facility] Pelvis X-Ray 11/22/24 21:00 IMPRESSION: 1. No acute abnormality. Reading Location: [facility] Discharge Plan Triage Chief Complaint: Numb/Ting ED Provider: Christopher Vargas Dx/Rx/DC Orders Prescriptions: No Action leucovorin calcium 5 mg tablet 5 mg PO DAILY lorazepam 0.5 mg tablet 0.5 mg PO BID Patient Comments: TAKE 1 TABLET BY MOUTH TWICE A DAY NEEDED FOR ANXIETY zolpidem 10 MG tablet 10 mg PO QHS gabapentin 600 mg tablet extended release 24 hr 600 mg PO TID ondansetron 4 mg tablet,disintegrating 4 mg PO Q8H PRN PRN (Reason: Nausea) Qty: 10 0RF glipizide 10 mg tablet extended release 24hr 20 mg PO DAILY cyclobenzaprine 10 mg tablet 10 - 30 mg PO DAILY PRN (Reason: muscle spasticity) methotrexate sodium 2.5 mg tablet 20 mg PO QWEEK folic acid 1 mg tablet 1 mg PO DAILY nabumetone 500 mg tablet 500 mg PO BID Novolin R FlexPen 100 unit/mL (3 mL) insulin pen 10 unit subcut TID tizanidine 4 mg tablet 4 mg PO TID PRN PRN (Reason: muscle spasm) venlafaxine 150 mg capsule,extended release 24hr 150 mg PO DAILY omeprazole 40 mg capsule,delayed release(DR/EC) 40 mg PO DAILY PRN (Reason: gastric reflux) Primary Care Provider: Leilani Brantley Referrals: Leilani Brantley DO [Primary Care Provider] - Print Language: [place]
[2024-11-22 20:55] LABS: Absolute Lymphocyte Count 2.65 X10^3/uL (0.83-4.51); Absolute Neutrophil Count 9.4 X10^3/uL (2.0-7.7); Basophil# 0.14 X10^3/uL; Eosinophil# 0.12 X10^3/uL; Eosinophils% 0.9 % (0-5); Hematocrit 43.6 % (37-47); Hemoglobin 14.9 g/dL (12.0-15.0); Lymphocyte # 2.65 X10^3/ul (0.83-4.51); Lymphocyte % 19.2 % (19-41); Mean Corp Hgb Conc 34.2 g/dL (32-36); Mean Corpuscular Hgb 31.1 pg (27.0-32.0); Mean Platelet Vol. 10.1 fl (6.2-12.0); Monocyte# 1.35 X10^3/uL; Monocyte% 9.8 % (0-10); NRBC Flagged by Analyzer 0 % (0-5); Neutrophil # 9.43 X10^3/uL (2.7-7.7); Neutrophil % 68.2 % (47-70); Platelet Count 330 K/mm3 (150-450); RBC Distribution Width CV 13.3 % (11.6-14.6); RBC Distribution Width SD 44.3 fl (35.1-43.9); Red Blood Count 4.79 M/mm3 (4.2-5.4); White Blood Count 13.8 K/mm3 (4.4-11.0)
[2024-11-22] MEDS: 0.9% Normal Saline (1000mL) 1,000 ML 1000 ML IV (20:55)
--- NOTE | 2024-11-22 21:00 | RAD_ITS ---
PROCEDURE: CHEST 1 VIEW (PORTABLE) REASON FOR EXAM: Weakness TECHNIQUE: Frontal view of the chest. COMPARISON: None. FINDINGS: The lungs are clear. No pleural effusion or pneumothorax. The cardiomediastinal silhouette is unremarkable. No acute osseous or soft tissue abnormality. Cervical fusion hardware partially visualized. RAD/Chest 1 View (Portable) IMPRESSION: 1. No acute cardiopulmonary process. Reading Location: [facility]
--- NOTE | 2024-11-22 21:00 | RAD_ITS ---
PROCEDURE: PELVIS 1 OR 2 VIEWS TECHNIQUE: 1 view(s) of the pelvis. COMPARISON: None FINDINGS: No fracture. No suspicious bone lesion. No significant degenerative changes. Pelvic soft tissues are unremarkable. Normal bowel gas pattern. A few pelvic phleboliths are noted. RAD/Pelvis 1 or 2 Views IMPRESSION: 1. No acute abnormality. Reading Location: [facility]
[2024-11-22 21:25] LABS: Glucose, Dipstick 1000 mg/dl (Normal); Ketone-Dipstick 50 mg/dl (Negative); Leukocyte Esterase-Dipstick 25 /ul (Negative); Nitrite-Dipstick Negative (Negative); Occult Blood-Urine 50 /ul (Negative); Protein-Dipstick 30 mg/dl (Negative); Specific Gravity, Urine 1.025 (1.002-1.030); Urine Bilirubin Dipstick Negative (Negative); Urine Urobilinogen Normal (Normal)
[2024-11-22 21:40] LABS: ALB/GLOB Ratio 0.9 RATIO (0.9-2.4); AST(SGOT) 21 U/L (15-37); Alanine Aminotransfer ALT/SGPT 19 U/L (13-56); Albumin, Serum 3.4 g/dL (3.2-5.0); Alkaline Phosphatase 147 U/L (45-117); Anion Gap 11 (5-15); BUN 21 mg/dL (7-18); BUN/Creat Ratio 20.6 RATIO (10-20); Calcium,Total 9.6 mg/dL (8.5-10.1); Chloride 101 mmol/L (98-107); Creatinine, Serum 1.02 mg/dL (0.55-1.02); EST Glomerular Filtration Rate 58 mL/min (>60); Est Glom Filt Rate - Afr Amer 71 mL/min (>60); Estimated Creatinine Clearance 67.19 ml/min; Globulin 3.8 g/dL (2.2-4.2); Glucose 338 mg/dL (74-106); Magnesium 2.1 mg/dL (1.6-2.6); Potassium 4.2 mmol/L (3.5-5.1); Protein, Total 7.2 g/dL (6.4-8.2); Sodium Level 135 mmol/L (136-145); Troponin-I HS 1237 pg/mL (3.0-54.0)
--- NOTE | 2024-11-22 21:44 | EKG12_ITS ---
Test Reason : DYSRHYTHMIA Blood Pressure : */* mmHG Vent. Rate : 76 BPM Atrial Rate : 76 BPM P-R Int : 166 ms QRS Dur : 72 ms QT Int : 396 ms P-R-T Axes : 63 2 68 degrees QTcB Int : 445 ms Normal sinus rhythm Nonspecific ST and T wave abnormality Abnormal ECG Confirmed by BLANCA TAVERA, EDWIN ([id number]), news video editor FILIBERTO BRADEN ([id number]) on 11/25/2024 8:17:04 AM Referred By: YOUSIF Confirmed By: EDWIN RIOS MD
[2024-11-22 21:50] LABS: Lactic Acid 4.6 mmol/L (0.4-1.9)
[2024-11-22 22:00] VITALS: BP 113/71; PULSE 81; RESP 18; O2SAT 96
[2024-11-22 22:07] LABS: Color, Urine Yellow (Yellow); Urine Clarity Clear (Clear)
[2024-11-22 22:09] LABS: Bacteria 1+ /hpf (None Seen); Mucous, Urine 1+ /hpf (<or=2+); Red Blood Cells-Urine 0-5 SEEN /hpf (0-5); Squamous Epithelial Cells - UA 0-5 SEEN /hpf (5-10); White Blood Cells 0-5 SEEN /hpf (0-5)
[2024-11-22 22:10] LABS: Hyaline Cast 0-5 SEEN /lpf (0-5); Yeast-Urine 1+ /hpf (None Seen)
[2024-11-22 22:22] LABS: Prothrombin Time (Protime)PT. 13.4 SECONDS (11.7-14.9)
[2024-11-22] MEDS: Aspirin 81 MG TAB.CHEW 324 MG PO (22:40)
[2024-11-22] MEDS: Heparin Injection (Vial) 5,000 UNIT/ML VIAL 4000 UNIT IV (22:41)
[2024-11-22] MEDS: HEPARIN/D5w 25,000 UNITS 25,000 UNITS/250 ML IV.SOLN. 10 UNITS CONT INF (22:47)
--- NOTE | 2024-11-22 23:43 | HP.PCM.HOS_ITS ---
[facility] Date of Admission: 11/23/24 Date of Service: 11/22/24 Chief Complaint: Weakness in Her Legs. 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 Jung of oncology (2021) with no further workup recommended, depression with anxiety; on venlafaxine and as needed lorazepam twice daily, chronic insomnia; on zolpidem, history of CTS, history of soft tissue abscesses of face and Right wrist, history of colon polyps, IBS; diarrheal-type not currently on treatment, GERD; on omeprazole, history of tubal ligation, history closed reduction of nasal fracture, muscle spasms; on as needed tizanidine 3 times daily and OA; with history of anterior cervical laminectomy plus Right ankle and knee surgery on nabumetone twice daily who presents to [facility] ER complaining of generalized weakness. Mrs. Sutherland reports her symptoms began approximately 1 hour prior to admission when she turned around to Dr. Ulrich when her legs gave out. She states caused her to fall to the floor but she did not hit her head or lose consciousness. She is not on any blood thinners at this time. She states it felt like someone pulled the rug out from under her. She states she was able to ambulate after the fall and she denies any focal neurologic deficits or significant injury from the fall other than mild Left-sided pelvic / hip pain. She denies associated fever, chills, nausea, vomiting, diarrhea, constipation, upper respiratory infection symptoms, shortness of breath, cough, abdominal pain, back pain, chest pain or shortness of breath. In the ER she was noted to have an initial troponin of 1,237 pg/mL followed by a second upwardly trending troponin of 2,182 pg milliliter consistent with non-ST elevation AK complicated by laboratory evidence of Lactic Acidosis of 4.6 mmol/L present on admission and Leukocytosis of 13.8 K present on admission with no signs of infection on UA, chest x-ray or physical examination. She was then admitted to the PCU for ongoing care for status expected to extend beyond 2 midnights. [facility] Medical History Leukocytosis Polyclonal gammopathy IBS (irritable bowel syndrome) abscess right facial cheek abscess right wrist Carpal tunnel syndrome High cholesterol Diabetes Depression Anxiety disorder Home Medications ?Medication ?Instructions ?Recorded ?Last Taken ?Type zolpidem 10 mg tablet 10 mg PO QHS insomnia 11/21/24 22:00 History 10 mg gabapentin 600 mg tablet,extended 600 mg PO TID neurop athy 05/24/19 11/22/24 08:00 History release 24 hr 600 mg leucovorin calcium 5 mg tablet 5 mg PO DAILY supplemen t 06/17/22 11/22/24 08:00 History 5 mg lorazepam 0.5 mg tablet 0.5 mg PO BID anxiety Unknown History ondansetron 4 mg disintegrating 4 mg PO Q8H PRN PRN Na usea #10 tabs 02/08/23 Unknown Rx tablet cyclobenzaprine 10 mg tablet 10 - 30 mg PO DAILY PRN m uscle 11/22/24 11/21/24 20:00 History spasticity 10 mg folic acid 1 mg tablet 1 mg PO DAILY supplement 11/22/24 08:00 History 1 mg glipizide 10 mg tablet, extended 20 mg PO DAILY DM 11/22/24 08:00 History release 24 hr 20 mg insulin regular human 100 unit/mL 10 unit subcut TID d iabetes 11/22/24 11/21/24 21:00 History (3 mL) subcutaneous pen (Novolin R 10 units FlexPen) methotrexate sodium 2.5 mg tablet 20 mg PO QWEEK RA 11/15/24 08:00 History 20 mg nabumetone 500 mg tablet 500 mg PO BID arthritis 11/0911/21/24 22:00 History 500 mg omeprazole 40 mg capsule,delayed 40 mg PO DAILY PRN ga stric reflux 11/22/24 11/21/24 08:00 History release 40 mg tizanidine 4 mg tablet 4 mg PO TID PRN PRN muscle s pasm 11/22/24 11/21/24 22:00 History 4 mg venlafaxine 150 mg 150 mg PO DAILY depression; anxiety 11/22/24 11/21/24 08:00 History capsule,extended release 24 hr 150 mg Allergy/AdvReac Type Severity Reaction Status Date / Time No Known Allergies Allergy Verified 02/08/23 13:24 Family History Brother Colon cancer Father Hypertension Mother Hypertension Diabetes Surgical History history closed reduction nasal fracture History of tubal ligation history right ankle surgery History of right knee surgery history anterior cervical laminectomy Social History household members: spouse and other details: father housing: house Smoking Status: Former smoker quit date: 10/09/05 how long ago did patient quit smoking: smoked 1-1.5yrs alcohol intake: current alcohol intake frequency: a few times a week substance use type: does not use what type of physical activity do you participate in: none do you feel safe at home: Yes ROS ROS Narrative Review of Systems: Constitutional: Patient denies fever or chills. Eyes: Patient denies changes vision or discharge from eyes. ENT: Patient denies runny nose, sore throat or ear pain. Resp: Patient denies shortness of breath or cough. CV: Patient denies chest pain, palpitations, heart racing or lower extremity edema. GI: Patient denies abdominal pain, nausea, vomiting, diarrhea or constipation. : Patient denies dysuria, hematuria or urinary frequency. MSK: Patient admits to mild Left-sided pelvic/hip pain after fall as per HPI. Skin: Patient denies rash, abscess, wounds or jaundice. Psych: Patient denies symptoms of uncontrolled depression or anxiety. Neuro: Patient admits to transient sudden weakness of her lower extremities that caused her to fall but she denies paresthesias or headache. Allergy: Patient denies lip swelling, tongue swelling or urticaria. Hematology: Patient denies easy bleeding or easy bruisability. Endocrinology: Patient denies polyuria, polydipsia or polyphagia. 14 point review of systems otherwise negative save for positives noted above in HPI. Vital Signs Vital Signs Vital Signs: 11/22/24 18:33 11/22/24 20:32 11/22/24 22:00 Temperature 97.7 F L Temperature Source Oral Pulse Rate 88 86 81 Respiratory Rate 17 18 18 Blood Pressure 112/74 96/74 113/71 Blood Pressure Mean 86 81 85 Pulse Ox 97 94 96 Oxygen Delivery Method Room Air Room Air Room Air Weight Weight: 201 lb 4.513 oz Body Mass Index (BMI) 31.5 Physical Exam Const alert, oriented x3 and no apparent distress Constitutional Narrative: Obese with nontoxic appearance. General Appearance: cooperative Orientation / Consciousness: confused HEENT normocephalic, head/scalp atraumatic, hearing grossly normal bilaterally and moist oral mucous membranes Eyes PERRL, EOMs intact bilaterally and conjunctivae normal Neck no lymphadenopathy, supple and no JVD Resp normal respiratory effort, no retractions, no use of accessory muscles and clear to auscultation bilaterally Cardio regular rate and regular rhythm GI normal to inspection, nondistended, normoactive bowel sounds, soft to palpation, non-tender and non-distended GI Narrative: Obese. Extremity normal to inspection, full ROM and no clubbing, cyanosis or edema Extremity Narrative: Patient noted to have dense diminished sensation of both feet up to region just distal to the knees. Skin Skin Narrative: Patient has no evidence of rash, abscess, wound or jaundice. Neuro oriented x3, CN's II-XII intact bilaterally, moves all extremities and no focal motor deficits Sensorium / Orientation: awake, alert, oriented to person, oriented to place and oriented to time Speech: speech normal Psych affect normal Results Medical Records Data Attestation: I reviewed the patient's medical records Lab / Micro Data Attestation: I reviewed the patient's lab results. 11/23/24 04:36 11/23/24 04:36 Labs: Laboratory Results - last 24 hr 11/22/24 20:47: WBC 13.8 H, RBC 4.79, Hgb 14.9, Hct 43.6, MCV 91.0, MCH 31.1, MCHC 34.2, RDW Std Deviation 44.3 H, RDW Coeff of Ned 13.3, Plt Count 330, MPV 10.1, Immature Gran % (Auto) 0.900, Neut % (Auto) 68.2, Lymph % (Auto) 19.2, [place] % (Auto) 9.8, Eos % (Auto) 0.9, Baso % (Auto) 1.0, Absolute Neuts (auto) 9.4 H, Absolute Lymphs (auto) 2.65, Nucleated RBC % 0, PT 13.4, INR 1.0, APTT 22.0 L, Sodium 135 L, Potassium 4.2, Chloride 101, Carbon Dioxide 23.0, Anion Gap 11, BUN 21 H, Creatinine 1.02, Estim Creat Clear Calc 67.19, Est GFR (MDRD) Af Amer 71, Est GFR (MDRD) Non-Af 58 L, BUN/Creatinine Ratio 20.6 H, Glucose 338 H, Lactic Acid 4.6 H*, Calcium 9.6, Magnesium 2.1, Total Bilirubin 0.30, AST 21, ALT 19, Alkaline Phosphatase 147 H, Troponin I High Sens 1237 H*, Total Protein 7.2, Albumin 3.4, Globulin 3.8, Albumin/Globulin Ratio 0.9 11/22/24 21:15: Urine Color Yellow, Urine Clarity Clear, Urine pH 5.0, Ur Specific [place] 1.025, Urine Protein 30 H, Urine Glucose (UA) 1000 H, Urine Ketones 50 H, Urine Occult Blood 50 H, Urine Nitrite Negative, Urine Bilirubin Negative, Urine Urobilinogen Normal, Ur Leukocyte Esterase 25 H, Urine RBC 0-5 SEEN, Urine WBC 0-5 SEEN, Ur Squamous Epith Cells 0-5 SEEN, Urine Bacteria 1+, Hyaline Casts 0-5 SEEN, Urine Mucus 1+, Urine Yeast 1+ Imaging Radiology Impression Chest X-Ray 11/22/24 21:00 IMPRESSION: 1. No acute cardiopulmonary process. Reading Location: [facility] Pelvis X-Ray 11/22/24 21:00 IMPRESSION: 1. No acute abnormality. Reading Location: [facility] Assessment & Plan Assessment/Plan (1) Non-ST elevation myocardial infarction (NSTEMI), initial episode of care: (2) Lactic acidosis: (3) Leukocytosis: QUALIFIERS: Leukocytosis type: unspecified Qualified Code(s): D 72.829 - Elevated white blood cell count, unspecified (4) Polyclonal gammopathy: (5) History of rheumatoid arthritis: (6) Diabetes mellitus, type 2: QUALIFIERS: Diabetes mellitus complication status: with other specified complication Diabetes mellitus intermediate insulin use: with termite control representative use Qualified Code(s): E11.69 - Type 2 diabetes mellitus with other specified complication; Z79.4 - long term care pharmacist (current) use of insulin (7) Leg weakness, bilateral: (8) Obesity (BMI 30.0-34.9): (9) Hyperlipidemia: QUALIFIERS: Hyperlipidemia type: unspecified Qualified Code(s): E 78.5 - Hyperlipidemia, unspecified PLAN: Plan 1. Non-ST elevation AK; evidenced by initial troponin of 1,237 pg/mL followed by a second upwardly trending troponin of 2,182 pg/mL - Admit to PCU. Continue ECASA plus IV heparin begun in the ER plus begin statin. Serialize troponin. Check echocardiogram to evaluate LVEF. Give acetaminophen as needed for byvy-vs-mosykggp (level 1-5/10) pain or fever. Give morphine IV as needed for severe (level 6-10/10) pain. Finally, we will consult [facility] see this patient on rounds in the a.m. for further recommendations regarding LHC this admission without appreciated in advance. 2. Lactic Acidosis of 4.6 mmol/L present on admission likely due to #1 with no signs of infection on UA, CXR and physical exam with patient afebrile and nontoxic in appearance - Aggressively volume resuscitate and repeat lactate decreased to 2.2 mmol/L after initial round of treatment. 3. Leukocytosis of 13.8 K present on admission in the setting of previously known chronic leukocytosis and reactive polyclonal gammopathy; attributed to chronic inflammation from RA complicating #1 & #2 - Noted with patient's baseline level of 11.3 K noted approximately 1 year ago. Check daily CBC to follow trend. 4. DM-2; of unknown control on glipizide and regular insulin 10 units 3 times daily with diabetic neuropathy causing decreased sensitivity in both feet and legs up to the knee; on gabapentin 3 times daily adding to the medical complexity of #1 - #3 - Keep n.p.o. after midnight. Fingerstick blood sugar every 6 hours plus lowest intensity sliding scale insulin. Check hemoglobin A1c to objectively evaluate quality of diabetic control. 5. Transient weakness with fall attributable to #1 - #4 - PT/OT and case management consult and treat on rounds in the a.m. for further recommendations with help appreciated in advance. 6. Obesity; with BMI of 31.5 this admission adding to the burden of disease outlined from #1 - #5 - Weight loss will be recommended. Check TSH. This complicates her case and may hamper recovery. 7. Hyperlipidemia; not on treatment - Patient started on statin for #1. Check Lipid Profile this admission in light of #1. 8. Former history of tobacco abuse; quit 2005 - Noted. 9. Depression with anxiety; on venlafaxine and as needed lorazepam twice daily - Maintain home regimen as previous. 10. Chronic insomnia; on zolpidem - Resume zolpidem as needed nightly as before. 11. History of CTS - Noted. 12. History of soft tissue abscesses of face and Right wrist - Noted with no signs of recurrence at this time. 13. History of colon polyps - Noted. 14. IBS; diarrheal-type not currently on treatment - Give Imodium as needed if symptoms recur. 15. GERD; on omeprazole - Resume PPI. 16. History of tubal ligation - Noted for the sake of completeness. 17. History closed reduction of nasal fracture - Noted. 18. Muscle spasms; on as needed tizanidine 3 times daily - Continue as needed tizanidine. 19. OA; with history of anterior cervical laminectomy plus Right ankle and knee surgery on nabumetone twice daily - Noted. Patient will be treated according to the pain regimen outlined in #1. 20. DVT prophylaxis - Patient on IV heparin for #1. Total time: Approximately (but not less than) 75 minutes. Charges/Coding Visit Charges Inpatient E&M: 57740 Init Hosp L3
[2024-11-22 23:49] VITALS: BP 106/70; PULSE 75; RESP 18; TEMP 37; O2SAT 95
[2024-11-22 23:58] LABS: Troponin-I HS 2182 pg/mL (3.0-54.0)
[2024-11-23] VITALS (8 sets, daily range): BP systolic 97–138; BP diastolic 56–88; PULSE 71–83; RESP 16–17; TEMP 36.2–36.8; O2SAT 86–100; BMI 30.9
[2024-11-23 00:53] LABS: Reflex Lactate? Y
--- NOTE | 2024-11-23 00:53 | ECHOCS_ITS ---
Reason For Study Reason For Study: s/p DC Procedure This was a 2D Doppler, Color Flow transthoracic echocardiogram. Contrast injection was performed. Exam performed portable in patient room. Left Ventricle Normal LV size. The estimated ejection fraction is 60 %. No evidence for diastolic dysfunction. Right Ventricle Normal RV size. Normal systolic function. Atria The left and right atria are normal. Mitral Valve There is no mitral valve stenosis. Mild (1+) mitral valve insufficiency. Tricuspid Valve There is no tricuspid stenosis. Unable to estimate RV systolic pressure due to inadequate jet, pulmonary artery pressure probably normal. Aortic Valve Trisinus/trileaflet aortic valve. There is no aortic stenosis. No aortic valve insufficiency. Pulmonic Valve There is no pulmonic valvular stenosis. No pulmonic valve insufficiency. Great Vessels Normal aortic root. Pericardium/Pleural No pericardial effusion. Medication Diluted definity 2ml given slow IV push to enhance endocardial definition. MMode/2D Measurements & Calculations LVIDd: 3.7 cm IVSd: 0.95 cm Ao root diam: 3.1 cm LVIDs: 2.9 cm LVPWd: 1.0 cm RVDd: 2.6 cm FS: 21.7 % LAV(MOD-bp): 26.0 ml LVAd ap4: 27.1 cm2 SV(MOD-sp4): 39.7 ml LAV(MOD-bp) Indexed: 12.8 ml/m2 LVLd ap4: 7.6 cm SI(MOD-sp4): 19.6 ml/m2 LAV(MOD-sp2): 23.9 ml EDV(MOD-sp4): 78.1 ml LAV(MOD-sp4): 28.3 ml EDV(sp4-el): 82.1 ml LVAs ap4: 16.4 cm2 LVLs ap4: 6.2 cm ESV(MOD-sp4): 38.5 ml ESV(sp4-el): 36.6 ml EF(MOD-sp4): 50.8 % EF(sp4-el): 55.4 % SV(sp4-el): 45.5 ml LA A4 area: 12.9 cm2 LA dimension(2D): 3.8 cm RA A4 area: 7.7 cm2 TAPSE: 2.4 cm Time Measurements MV dec time: 0.21 sec Doppler Measurements & Calculations MV E max hemal: 95.1 cm/sec Lat Peak E' Hemal: 7.7 cm/sec Med Peak E' Hemal: 8.1 cm/sec MV A max hemal: 105.6 cm/sec E/E' lat: 12.4 E/E' med: 11.7 MV E/A: 0.90 MV dec slope: 445.2 cm/sec2 Ao V2 max: 140.3 cm/sec LV V1 max: 107.7 cm/sec Ao max P.9 mmHg LV V1 max P.6 mmHg Ao V2 mean: 97.9 cm/sec Ao mean P.2 mmHg Ao V2 VTI: 26.0 cm PA V2 max: 101.1 cm/sec ECHO/Echo Complete W/ Contrast Interpretation Summary There is a moderate sized basal inferior, posterior, and lateral wall motion ab normality with hypokinesis of the segments. The estimated ejection fraction is 60 %. No evidence for diastolic dysfunction. Mild (1+) mitral valve insufficiency. Ordering Physician: David Aldrihc Referring Physician: Leilani Brantley Performed By: Miranda Joaquin RDCS, RVT
[2024-11-23 01:46] LABS: Lactic Acid 2.4 mmol/L (0.4-1.9)
[2024-11-23 02:30] LABS: Lactic Acid 2.5 mmol/L (0.4-1.9); Troponin-I HS 2938 pg/mL (3.0-54.0)
[2024-11-23] MEDS: 0.9% Normal Saline (1000mL) 1,000 ML 1000 ML IV (03:09)
[2024-11-23] MEDS: Insulin Lispro 100 UNIT/ML INSULN.PEN SC ×5 (03:19→21:17)
[2024-11-23 04:30] LABS: Troponin-I HS 3297 pg/mL (3.0-54.0)
[2024-11-23 04:43] LABS: Reflex Lactate? Y
[2024-11-23 05:10] LABS: Hematocrit 40.8 % (37-47); Mean Corp Hgb Conc 34.3 g/dL (32-36); Mean Corpuscular Hgb 31.1 pg (27.0-32.0); Mean Corpuscular Volume 90.7 fL (81-99); Mean Platelet Vol. 10.3 fl (6.2-12.0); Platelet Count 315 K/mm3 (150-450); RBC Distribution Width CV 13.4 % (11.6-14.6); RBC Distribution Width SD 44.6 fl (35.1-43.9)
[2024-11-23 05:27] LABS: Partial Thromboplast Time 43.7 Seconds (24.1-36.2)
[2024-11-23] MEDS: Gabapentin 600 MG Tablet PO ×3 (05:27→21:13)
[2024-11-23] MEDS: 0.9% Saline Lock 10 ML Syringe IV (05:27)
[2024-11-23 05:45] LABS: D-Dimer Quantitative (DVT/PE) < 0.27 FEU/ug/m (0.27-0.49)
[2024-11-23 05:51] LABS: Lactic Acid 2.2 mmol/L (0.4-1.9)
[2024-11-23 06:30] LABS: ALB/GLOB Ratio 0.9 RATIO (0.9-2.4); AST(SGOT) 25 U/L (15-37); Alanine Aminotransfer ALT/SGPT 16 U/L (13-56); Albumin, Serum 2.9 g/dL (3.2-5.0); Alkaline Phosphatase 108 U/L (45-117); Anion Gap 11 (5-15); BUN 19 mg/dL (7-18); BUN/Creat Ratio 21.8 RATIO (10-20); Calcium,Total 8.8 mg/dL (8.5-10.1); Chloride 108 mmol/L (98-107); Cholesterol 192 mg/dL (200); Creatinine, Serum 0.87 mg/dL (0.55-1.02); EST Glomerular Filtration Rate 70 mL/min (>60); Est Glom Filt Rate - Afr Amer 85 mL/min (>60); Estimated Creatinine Clearance 78.08 ml/min; Globulin 3.4 g/dL (2.2-4.2); Glucose 290 mg/dL (74-106); High Density Lipoprotein 50 mg/dL; Potassium 3.8 mmol/L (3.5-5.1); Protein, Total 6.3 g/dL (6.4-8.2); Sodium Level 139 mmol/L (136-145); Triglycerides 185 mg/dL; Very Low Density Lipoprotein 37 mg/dL (5-40)
[2024-11-23 09:44] LABS: Bedside Glucose 289 mg/dL (74-106)
[2024-11-23] MEDS: Aspirin E.C. 81 MG Tablet PO (10:53)
[2024-11-23] MEDS: Venlafaxine XR 150 MG Capsule PO (10:53)
[2024-11-23] MEDS: Folic Acid 1 MG Tablet PO (10:53)
[2024-11-23] MEDS: Etodolac 200 MG Capsule PO ×2 (10:53→17:05)
[2024-11-23] MEDS: LORazepam 0.5 MG Tablet PO ×2 (10:53→21:13)
--- NOTE | 2024-11-23 11:13 | PCM.PN.HOSP ---
Subjective Subjective Resting comfortably, no issues overnight Objective Data Objective Data Vital Signs: Vital Signs Temp Pulse Resp BP Pulse Ox O2 Del Method O2 Flow Rate 98.1 F 71 16 106/71 97 Nasal Cannula 2 11/23/24 08:01 11/23/24 08:01 11/23/24 08:01 11/23/24 08:01 11/23/24 08:01 11/23/24 08:01 11/23/24 08:01 Oxygen Flow Rate (L/min) 2 Oxygen Delivery Method Nasal Cannula Weight: 197 lb 12.074 oz Body Mass Index (BMI) 30.9 Intake & Output: Intake and Output for Last 24 Hours 11/22/24 11/23/24 11/24/24 03:59 03:59 03:59 Intake Total 1000 / 1000 1087.33 / 1087.33 Balance 1000 / 1000 1087.33 / 1087.33 Lab / Micro Data 11/23/24 04:36 11/23/24 04:36 Labs: Laboratory Results - last 24 hr 11/22/24 20:47: WBC 13.8 H, RBC 4.79, Hgb 14.9, Hct 43.6, MCV 91.0, MCH 31.1, MCHC 34.2, RDW Std Deviation 44.3 H, RDW Coeff of Ned 13.3, Plt Count 330, MPV 10.1, Immature Gran % (Auto) 0.900, Neut % (Auto) 68.2, Lymph % (Auto) 19.2, [place] % (Auto) 9.8, Eos % (Auto) 0.9, Baso % (Auto) 1.0, Absolute Neuts (auto) 9.4 H, Absolute Lymphs (auto) 2.65, Nucleated RBC % 0, PT 13.4, INR 1.0, APTT 22.0 L, Sodium 135 L, Potassium 4.2, Chloride 101, Carbon Dioxide 23.0, Anion Gap 11, BUN 21 H, Creatinine 1.02, Estim Creat Clear Calc 67.19, Est GFR (MDRD) Af Amer 71, Est GFR (MDRD) Non-Af 58 L, BUN/Creatinine Ratio 20.6 H, Glucose 338 H, Lactic Acid 4.6 H*, Calcium 9.6, Magnesium 2.1, Total Bilirubin 0.30, AST 21, ALT 19, Alkaline Phosphatase 147 H, Troponin I High Sens 1237 H*, Total Protein 7.2, Albumin 3.4, Globulin 3.8, Albumin/Globulin Ratio 0.9 11/22/24 21:15: Urine Color Yellow, Urine Clarity Clear, Urine pH 5.0, Ur Specific [place] 1.025, Urine Protein 30 H, Urine Glucose (UA) 1000 H, Urine Ketones 50 H, Urine Occult Blood 50 H, Urine Nitrite Negative, Urine Bilirubin Negative, Urine Urobilinogen Normal, Ur Leukocyte Esterase 25 H, Urine RBC 0-5 SEEN, Urine WBC 0-5 SEEN, Ur Squamous Epith Cells 0-5 SEEN, Urine Bacteria 1+, Hyaline Casts 0-5 SEEN, Urine Mucus 1+, Urine Yeast 1+ 11/22/24 23:34: Troponin I High Sens 2182 H* 11/23/24 00:39: Lactic Acid 2.4 H* 11/23/24 01:50: Lactic Acid 2.5 H*, Troponin I High Sens 2938 H* 11/23/24 03:45: Troponin I High Sens 3297 H* 11/23/24 04:36: WBC 12.0 H, RBC 4.50, Hgb 14.0, Hct 40.8, MCV 90.7, MCH 31.1, MCHC 34.3, RDW Std Deviation 44.6 H, RDW Coeff of Ned 13.4, Plt Count 315, MPV 10.3, APTT 43.7 H, D-Dimer Quant (PE/DVT) < 0.27 L, Sodium 139, Potassium 3.8, Chloride 108 H, Carbon Dioxide 19.0 L, Anion Gap 11, BUN 19 H, Creatinine 0.87, Estim Creat Clear Calc 78.08, Est GFR (MDRD) Af Amer 85, Est GFR (MDRD) Non-Af 70, BUN/Creatinine Ratio 21.8 H, Glucose 290 H, Calcium 8.8, Total Bilirubin 0.30, AST 25, ALT 16, Alkaline Phosphatase 108, Total Protein 6.3 L, Albumin 2.9 L, Globulin 3.4, Albumin/Globulin Ratio 0.9, Triglycerides 185, Cholesterol 192, LDL Cholesterol 105, VLDL Cholesterol 37, HDL Cholesterol 50, TSH 0.840 11/23/24 05:13: Lactic Acid 2.2 H* 11/23/24 09:22: POC Glucose 289 H Radiography Diagnostic Testing: Radiology Impression Chest X-Ray 11/22/24 21:00 IMPRESSION: 1. No acute cardiopulmonary process. Reading Location: [facility] Pelvis X-Ray 11/22/24 21:00 IMPRESSION: 1. No acute abnormality. Reading Location: [facility] Physical Exam Narrative General: Alert, Oriented x3, Cooperative, No apparent distress HEENT: Atraumatic, PERRLA, EOMI, Normocephalic Oral: Moist Mucosa Neck: Supple, No JVD Lungs: Diminished, Normal air movement, No rhonchi, No wheeze, No rales Cardiovascular: Regular rate, Regular Rhythm, Normal S1, Normal S2, No murmurs Abdomen: Soft, Non Tender, Non-Distended, No Hepato-splenomegaly Extremities: No edema, Capillary Refill Less than 3 Seconds Skin: No rashes, No breakdown Musculoskeletal: No Tenderness to Palpation of Joints or Extremities Neurological: No focal neurological deficits, Motor Exam 5/5 strength throughout, Sensory exam intact to light touch and pain Psych/Mental Status: Normal Affect, Appropriate Assessment & Plan Assessment/Plan (1) Non-ST elevation myocardial infarction (NSTEMI), initial episode of care: PLAN: Plan 1. Non-STEMI ?Consult cardiology for heart cath ? Continue with heparin drip ? Echo is pending ? Continue with Lipitor 2. Leukocytosis lactic acidosis ? This is likely reactive to her non-STEMI as well as the setting of her polyclonal gammopathy leading to her elevated white blood cell count ? She does not have sepsis or an infection 3. DM2 ? Continue with insulin ? Will hold her home medications ? Accu-Cheks ACHS 4. Anxiety/depression ? Stabilized ? Continue with her home medications 5. GERD ? Stable ? Continue with PPI DVT: Heparin drip Charges/Coding Visit Charges Inpatient E&M: 94281 Subs Hosp L2
[2024-11-23] MEDS: FLU VACC 2024-25(6MOS UP)/PF 45 MCG/0.5 ML SYRINGE IM (12:09)
--- NOTE | 2024-11-23 12:10 | CASEMGMT ---
SALO DELGADO Assessment: Face to Face with pt for initial transition planning/care coordination assessment. SALO DELGADO introduced self and role at [facility], pt voices understanding and consents to assessment. Pt is A&O x4 and answers all questions appropriately at this time. Pt lying in bed in no distress with at bedside. Care providers, pharmacy, and demographics verified/updated. Admitting Dx: NSTEMI, metformin induced lactic acidosis PCP:Fercho Specialists:drew Vasquez Preferred Pharmacy: [facility] Insurance: [employer] [facility] Prescription Benefit: yes LNOK: Munir Brennan, Living Arrangements: Pt lives with and her father in a split level home with 1 step to enter. Pt reports prior to this hospitalization she was I in ADLs and shares with IADLs. Pt denies concerns at home. Transportation: Pt transports her. DME:cane, don't use; BGM with sufficient supply of strips and lancets, sufficient supply of insulin and needles. HHC/SNF: Denies hx of Pt states no concerns with going home at time of dc. No therapy ordered at this time. Pt SBA in room. Will continue to follow. Pt states she fell as that was her sx of NSTEMI, no real CP. Pt states no further concerns/needs. CM to follow. Advised pt to ask CM if any further questions/concerns/needs arise, voices understanding. Pt Goal: Home Plan: Home pending course of hospitalization Kvng LEONG CM
[2024-11-23 12:31] LABS: Bedside Glucose 271 mg/dL (74-106)
[2024-11-23 14:56] LABS: Partial Thromboplast Time 42.6 Seconds (24.1-36.2)
--- NOTE | 2024-11-23 15:11 | PCM.CONS.C ---
Assessment & Plan Assessment/Plan (1) Non-ST elevation myocardial infarction (NSTEMI), initial episode of care: PLAN: Atypical presentation. However patient does have some wall motion abnormalities that are concerning on the echo as well. She has some nonspecific ST-T changes on the EKG as well. Reasonable to proceed with coronary angiography on Monday. Recommend checking a CPK level. HPI Consult Data Date of Consult: 11/23/24 HPI Narrative Reason for Consultation: Elevated troponin HPI Narrative: LUCITA SUTHERLAND, is a 63 F who presents after falling due to her legs giving out. Patient was apparently going up stairs when suddenly her legs gave out. She then crawled up the last 4-5 stairs and went to her bed. She said that she was able to barely get up and then fall on her bed. She denies any chest pain, syncope, shortness of breath etc. In the emergency room patient's high-sensitivity troponin was elevated. Her lactic acid was elevated as well. Patient was admitted to the PCU. She has been walking to the bathroom without any issues. She denies any lower extremity weakness at this time. Her 2D echo revealed basal lateral, basal inferior and basal posterior hypokinesis. Overall ejection fraction appears to be preserved. Review of systems: All systems reviewed. All else is negative except that in [facility] Medical History Leukocytosis Polyclonal gammopathy IBS (irritable bowel syndrome) abscess right facial cheek abscess right wrist Carpal tunnel syndrome High cholesterol Diabetes Depression Anxiety disorder Home Medications ?Medication ?Instructions ?Recorded ?Last Taken ?Type zolpidem 10 mg tablet 10 mg PO QHS insomnia 06/14/17 11/21/24 22:00 History 10 mg gabapentin 600 mg tablet,extended 600 mg PO TID neuropathy 05/24/19 11/22/24 08:00 History release 24 hr 600 mg leucovorin calcium 5 mg tablet 5 mg PO DAILY supplement 06/17/22 11/22/24 08:00 History 5 mg lorazepam 0.5 mg tablet 0.5 mg PO BID anxiety 06/17/22 Unknown History ondansetron 4 mg disintegrating 4 mg PO Q8H PRN PRN Nausea #10 tabs 02/08/23 Unknown Rx tablet cyclobenzaprine 10 mg tablet 10 - 30 mg PO DAILY PRN muscle 11/22/24 11/21/24 20:00 History spasticity 10 mg folic acid 1 mg tablet 1 mg PO DAILY supplement 11/22/24 11/22/24 08:00 History 1 mg glipizide 10 mg tablet, extended 20 mg PO DAILY DM 11/22/24 11/22/24 08:00 History release 24 hr 20 mg insulin regular human 100 unit/mL 10 unit subcut TID diabetes 11/22/24 11/21/24 21:00 History (3 mL) subcutaneous pen (Novolin R 10 units FlexPen) methotrexate sodium 2.5 mg tablet 20 mg PO QWEEK RA 11/22/24 11/15/24 08:00 History 20 mg nabumetone 500 mg tablet 500 mg PO BID arthritis 11/22/24 11/21/24 22:00 History 500 mg omeprazole 40 mg capsule,delayed 40 mg PO DAILY PRN gastric reflux 11/22/24 11/21/24 08:00 History release 40 mg tizanidine 4 mg tablet 4 mg PO TID PRN PRN muscle spasm 11/22/24 11/21/24 22:00 History 4 mg venlafaxine 150 mg 150 mg PO DAILY depression; anxiety 11/22/24 11/21/24 08:00 History capsule,extended release 24 hr 150 mg Allergy/AdvReac Type Severity Reaction Status Date / Time No Known Allergies Allergy Verified 02/08/23 13:24 Family History Brother Colon cancer Father Hypertension Mother Hypertension Diabetes Surgical History history closed reduction nasal fracture History of tubal ligation history right ankle surgery History of right knee surgery history anterior cervical laminectomy Social History household members: spouse and other details: father housing: house Smoking Status: Former smoker quit date: 10/09/05 how long ago did patient quit smoking: smoked 1-1.5yrs alcohol intake: current alcohol intake frequency: a few times a week substance use type: does not use what type of physical activity do you participate in: none do you feel safe at home: Yes Physical Exam Const alert and oriented x3 HEENT normocephalic Cardio regular rate Extremity no pedal edema Risk Stratification Risk Stratification Applicable: No Charges/Coding Visit Charges Inpatient E&M: 66656 Init Hosp L2 Objective Data Vital Signs: Vital Signs Temp Pulse Resp BP Pulse Ox O2 Del Method O2 Flow Rate 98.1 F 71 16 106/71 97 Nasal Cannula 2 11/23/24 08:01 11/23/24 08:01 11/23/24 08:01 11/23/24 08:01 11/23/24 08:01 11/23/24 08:01 11/23/24 08:01 Oxygen Flow Rate (L/min) 2 Oxygen Delivery Method Nasal Cannula Weight: 197 lb 12.074 oz Body Mass Index (BMI) 30.9 Intake & Output: Intake and Output for Last 24 Hours 11/21/24 11/22/24 11/23/24 23:59 23:59 23:59 Intake Total 1000 / 1000 1171.11 / 1171.11 Balance 1000 / 1000 1171.11 / 1171.11 Lab / Micro Data 11/23/24 04:36 11/23/24 04:36 Labs: Laboratory Results - last 24 hr 11/22/24 20:47: WBC 13.8 H, RBC 4.79, Hgb 14.9, Hct 43.6, MCV 91.0, MCH 31.1, MCHC 34.2, RDW Std Deviation 44.3 H, RDW Coeff of Ned 13.3, Plt Count 330, MPV 10.1, Immature Gran % (Auto) 0.900, Neut % (Auto) 68.2, Lymph % (Auto) 19.2, [place] % (Auto) 9.8, Eos % (Auto) 0.9, Baso % (Auto) 1.0, Absolute Neuts (auto) 9.4 H, Absolute Lymphs (auto) 2.65, Nucleated RBC % 0, PT 13.4, INR 1.0, APTT 22.0 L, Sodium 135 L, Potassium 4.2, Chloride 101, Carbon Dioxide 23.0, Anion Gap 11, BUN 21 H, Creatinine 1.02, Estim Creat Clear Calc 67.19, Est GFR (MDRD) Af Amer 71, Est GFR (MDRD) Non-Af 58 L, BUN/Creatinine Ratio 20.6 H, Glucose 338 H, Lactic Acid 4.6 H*, Calcium 9.6, Magnesium 2.1, Total Bilirubin 0.30, AST 21, ALT 19, Alkaline Phosphatase 147 H, Troponin I High Sens 1237 H*, Total Protein 7.2, Albumin 3.4, Globulin 3.8, Albumin/Globulin Ratio 0.9 11/22/24 21:15: Urine Color Yellow, Urine Clarity Clear, Urine pH 5.0, Ur Specific [place] 1.025, Urine Protein 30 H, Urine Glucose (UA) 1000 H, Urine Ketones 50 H, Urine Occult Blood 50 H, Urine Nitrite Negative, Urine Bilirubin Negative, Urine Urobilinogen Normal, Ur Leukocyte Esterase 25 H, Urine RBC 0-5 SEEN, Urine WBC 0-5 SEEN, Ur Squamous Epith Cells 0-5 SEEN, Urine Bacteria 1+, Hyaline Casts 0-5 SEEN, Urine Mucus 1+, Urine Yeast 1+ 11/22/24 23:34: Troponin I High Sens 2182 H* 11/23/24 00:39: Lactic Acid 2.4 H* 11/23/24 01:50: Lactic Acid 2.5 H*, Troponin I High Sens 2938 H* 11/23/24 03:45: Troponin I High Sens 3297 H* 11/23/24 04:36: WBC 12.0 H, RBC 4.50, Hgb 14.0, Hct 40.8, MCV 90.7, MCH 31.1, MCHC 34.3, RDW Std Deviation 44.6 H, RDW Coeff of Ned 13.4, Plt Count 315, MPV 10.3, APTT 43.7 H, D-Dimer Quant (PE/DVT) < 0.27 L, Sodium 139, Potassium 3.8, Chloride 108 H, Carbon Dioxide 19.0 L, Anion Gap 11, BUN 19 H, Creatinine 0.87, Estim Creat Clear Calc 78.08, Est GFR (MDRD) Af Amer 85, Est GFR (MDRD) Non-Af 70, BUN/Creatinine Ratio 21.8 H, Glucose 290 H, Calcium 8.8, Total Bilirubin 0.30, AST 25, ALT 16, Alkaline Phosphatase 108, Total Protein 6.3 L, Albumin 2.9 L, Globulin 3.4, Albumin/Globulin Ratio 0.9, Triglycerides 185, Cholesterol 192, LDL Cholesterol 105, VLDL Cholesterol 37, HDL Cholesterol 50, TSH 0.840 11/23/24 05:13: Lactic Acid 2.2 H* 11/23/24 09:22: POC Glucose 289 H 11/23/24 12:11: POC Glucose 271 H 11/23/24 13:34: APTT 42.6 H Cardiology Labs/Tests 11/22/24 20:47: WBC 13.8 H, RBC 4.79, Hgb 14.9, Hct 43.6, MCV 91.0, MCH 31.1, MCHC 34.2, Plt Count 330, MPV 10.1, Immature Gran % (Auto) 0.900, Neut % (Auto) 68.2, Lymph % (Auto) 19.2, [place] % (Auto) 9.8, Eos % (Auto) 0.9, Baso % (Auto) 1.0, Absolute Neuts (auto) 9.4 H, Nucleated RBC % 0, PT 13.4, INR 1.0, APTT 22.0 L, Sodium 135 L, Potassium 4.2, Chloride 101, Carbon Dioxide 23.0, Anion Gap 11, BUN 21 H, Creatinine 1.02, Est GFR (MDRD) Af Amer 71, Est GFR (MDRD) Non-Af 58 L, BUN/Creatinine Ratio 20.6 H, Glucose 338 H, Lactic Acid 4.6 H*, Calcium 9.6, Magnesium 2.1, Total Bilirubin 0.30 11/22/24 21:15: Urine Color Yellow, Urine Clarity Clear, Urine pH 5.0, Ur Specific [place] 1.025, Urine Protein 30 H, Urine Glucose (UA) 1000 H, Urine Ketones 50 H, Urine Occult Blood 50 H, Urine Nitrite Negative, Urine Bilirubin Negative, Urine Urobilinogen Normal, Ur Leukocyte Esterase 25 H, Urine RBC 0-5 SEEN, Urine WBC 0-5 SEEN 11/23/24 00:39: Lactic Acid 2.4 H* 11/23/24 01:50: Lactic Acid 2.5 H* 11/23/24 04:36: WBC 12.0 H, RBC 4.50, Hgb 14.0, Hct 40.8, MCV 90.7, MCH 31.1, MCHC 34.3, Plt Count 315, MPV 10.3, APTT 43.7 H, D-Dimer Quant (PE/DVT) < 0.27 L, Sodium 139, Potassium 3.8, Chloride 108 H, Carbon Dioxide 19.0 L, Anion Gap 11, BUN 19 H, Creatinine 0.87, Est GFR (MDRD) Af Amer 85, Est GFR (MDRD) Non-Af 70, BUN/Creatinine Ratio 21.8 H, Glucose 290 H, Calcium 8.8, Total Bilirubin 0.30, Triglycerides 185, Cholesterol 192, LDL Cholesterol 105, VLDL Cholesterol 37, HDL Cholesterol 50 11/23/24 05:13: Lactic Acid 2.2 H* 11/23/24 13:34: APTT 42.6 H Rhythm: EKG: ECHO: Stress Test: Cardiac Cath: PCI: CT Surgery: Holter monitor: EPS: PPM: CXR: Chest CT Scan: Radiography Diagnostic Testing: Radiology Impression Chest X-Ray 11/22/24 21:00 IMPRESSION: 1. No acute cardiopulmonary process. Reading Location: [facility] Pelvis X-Ray 11/22/24 21:00 IMPRESSION: 1. No acute abnormality. Reading Location: [facility] Echocardiogram 11/23/24 00:53 Interpretation Summary There is a moderate sized basal inferior, posterior, and lateral wall motion abnormality with hypokinesis of the segments. The estimated ejection fraction is 60 %. No evidence for diastolic dysfunction. Mild (1+) mitral valve insufficiency. Ordering Physician: David Aldrich Referring Physician: Leilani Brantley Performed By: Miranda Joaquin, JENNIFERCS, RVT
[2024-11-23 17:25] LABS: Bedside Glucose 309 mg/dL (74-106)
[2024-11-23 21:10] LABS: Partial Thromboplast Time 40.5 Seconds (24.1-36.2)
[2024-11-23] MEDS: HEPARIN/D5w 25,000 UNITS 25,000 UNITS/250 ML IV.SOLN. 14 UNITS CONT INF (21:12)
[2024-11-23] MEDS: Zolpidem Tartrate 5 MG Tablet PO (21:13)
[2024-11-23] MEDS: Atorvastatin Calcium 40 MG Tablet PO (21:14)
[2024-11-23] MEDS: Heparin Injection (Vial) 5,000 UNIT/ML VIAL IV (21:27)
[2024-11-23 21:41] LABS: Bedside Glucose 191 mg/dL (74-106)
[2024-11-23] MEDS: tiZANidine HCl 2 MG Tablet 4 MG PO (22:50)
[2024-11-23] MEDS: Acetaminophen 325 MG Tablet 650 MG PO (22:50)
[2024-11-24 03:00] VITALS: BP 136/79; PULSE 71; RESP 14; TEMP 36.7; O2SAT 96
[2024-11-24] MEDS: 0.9% Saline Lock 10 ML Syringe IV (03:33)
[2024-11-24 03:56] LABS: Absolute Lymphocyte Count 4.45 X10^3/uL (0.83-4.51); Absolute Neutrophil Count 4.2 X10^3/uL (2.0-7.7); Eosinophil# 0.18 X10^3/uL; Eosinophils% 1.8 % (0-5); Hematocrit 44.7 % (37-47); Hemoglobin 14.8 g/dL (12.0-15.0); Lymphocyte # 4.45 X10^3/ul (0.83-4.51); Lymphocyte % 44.3 % (19-41); Mean Corp Hgb Conc 33.1 g/dL (32-36); Mean Corpuscular Hgb 30.7 pg (27.0-32.0); Mean Corpuscular Volume 92.7 fL (81-99); Mean Platelet Vol. 10.2 fl (6.2-12.0); Monocyte# 1.13 X10^3/uL; Monocyte% 11.2 % (0-10); NRBC Flagged by Analyzer 0 % (0-5); Neutrophil # 4.15 X10^3/uL (2.7-7.7); Neutrophil % 41.3 % (47-70); Platelet Count 293 K/mm3 (150-450); RBC Distribution Width CV 13.6 % (11.6-14.6); RBC Distribution Width SD 45.9 fl (35.1-43.9); Red Blood Count 4.82 M/mm3 (4.2-5.4); White Blood Count 10.1 K/mm3 (4.4-11.0)
[2024-11-24 04:07] LABS: Partial Thromboplast Time 62.4 Seconds (24.1-36.2)
[2024-11-24 04:11] LABS: Anion Gap 8 (5-15); BUN 16 mg/dL (7-18); BUN/Creat Ratio 21.3 RATIO (10-20); Calcium,Total 9.2 mg/dL (8.5-10.1); Chloride 110 mmol/L (98-107); Creatinine, Serum 0.75 mg/dL (0.55-1.02); EST Glomerular Filtration Rate 83 mL/min (>60); Est Glom Filt Rate - Afr Amer 101 mL/min (>60); Estimated Creatinine Clearance 90.58 ml/min; Glucose 247 mg/dL (74-106); Potassium 3.8 mmol/L (3.5-5.1); Sodium Level 138 mmol/L (136-145)
[2024-11-24] MEDS: Gabapentin 600 MG Tablet PO ×2 (06:27→21:11)
[2024-11-24] MEDS: Insulin Lispro 100 UNIT/ML INSULN.PEN SC ×4 (07:49→21:13)
[2024-11-24] MEDS: Insulin Lispro 100 UNIT/ML INSULN.PEN 10 UNIT SC ×3 (07:49→16:28)
[2024-11-24 08:28] LABS: Bedside Glucose 244 mg/dL (74-106)
[2024-11-24 08:35] LABS: CPK Total, Creatine Kinase 293 U/L (26-192)
[2024-11-24] MEDS: LORazepam 0.5 MG Tablet PO ×2 (09:04→21:11)
[2024-11-24] MEDS: Aspirin E.C. 81 MG Tablet PO (09:05)
[2024-11-24] MEDS: Folic Acid 1 MG Tablet PO (09:05)
[2024-11-24] MEDS: Etodolac 200 MG Capsule PO ×2 (09:05→16:29)
[2024-11-24] MEDS: Venlafaxine XR 150 MG Capsule PO (09:05)
[2024-11-24 10:10] VITALS: BP 114/62; PULSE 76; RESP 16; TEMP 36.1; O2SAT 100
[2024-11-24 10:28] LABS: Partial Thromboplast Time 25.9 Seconds (24.1-36.2)
--- NOTE | 2024-11-24 11:24 | PN.HOSP_ITS ---
Subjective Subjective No issues overnight, doing well Objective Data Objective Data Vital Signs: Vital Signs Temp Pulse Resp BP Pulse Ox O2 Del Method O2 Flow Rate 97 F L 76 16 114/62 100 Nasal Cannula 2 11/24/24 10:10 11/24/24 10:10 11/24/24 10:10 11/24/24 10:10 11/24/24 10:10 11/24/24 10:10 11/24/24 10:10 Oxygen Flow Rate (L/min) 2 Oxygen Delivery Method Nasal Cannula Weight: 197 lb 12.074 oz Body Mass Index (BMI) 30.9 Intake & Output: Intake and Output for Last 24 Hours 11/23/24 11/24/24 11/25/24 03:59 03:59 03:59 Intake Total 1000 / 1000 2403.91 / 2403.91 157.03 / 157.03 Output Total 800 / 800 Balance 1000 / 1000 1603.91 / 1603.91 157.03 / 157.03 Lab / Micro Data 11/24/24 03:38 11/24/24 03:38 Labs: Laboratory Results - last 24 hr 11/23/24 12:11: POC Glucose 271 H 11/23/24 13:34: APTT 42.6 H 11/23/24 17:04: POC Glucose 309 H 11/23/24 20:55: APTT 40.5 H 11/23/24 21:16: POC Glucose 191 H 11/24/24 03:38: WBC 10.1, RBC 4.82, Hgb 14.8, Hct 44.7, MCV 92.7, MCH 30.7, MCHC 33.1, RDW Std Deviation 45.9 H, RDW Coeff of Ned 13.6, Plt Count 293, MPV 10.2, Immature Gran % (Auto) 0.400, Neut % (Auto) 41.3 L, Lymph % (Auto) 44.3 H, [place] % (Auto) 11.2 H, Eos % (Auto) 1.8, Baso % (Auto) 1.0, Absolute Neuts (auto) 4.2, Absolute Lymphs (auto) 4.45, Nucleated RBC % 0, APTT 62.4 H, Sodium 138, Potassium 3.8, Chloride 110 H, Carbon Dioxide 21.0, Anion Gap 8, BUN 16, Creatinine 0.75, Estim Creat Clear Calc 90.58, Est GFR (MDRD) Af Amer 101, Est GFR (MDRD) Non-Af 83, BUN/Creatinine Ratio 21.3 H, Glucose 247 H, Hemoglobin A1c 10.0 H, Calcium 9.2, Total Creatine Kinase 293 H 11/24/24 07:45: POC Glucose 244 H 11/24/24 10:07: APTT 25.9 Radiography Diagnostic Testing: Radiology Impression Echocardiogram 11/23/24 00:53 Interpretation Summary There is a moderate sized basal inferior, posterior, and lateral wall motion abnormality with hypokinesis of the segments. The estimated ejection fraction is 60 %. No evidence for diastolic dysfunction. Mild (1+) mitral valve insufficiency. Ordering Physician: David Aldrich Referring Physician: Leilani Brantley Performed By: Miranda Joaquin, JENNIFERCS, RVT Physical Exam Narrative General: Alert, Oriented x3, Cooperative, No apparent distress HEENT: Atraumatic, PERRLA, EOMI, Normocephalic Oral: Moist Mucosa Neck: Supple, No JVD Lungs: Diminished, Normal air movement, No rhonchi, No wheeze, No rales Cardiovascular: Regular rate, Regular Rhythm, Normal S1, Normal S2, No murmurs Abdomen: Soft, Non Tender, Non-Distended, No Hepato-splenomegaly Extremities: No edema, Capillary Refill Less than 3 Seconds Skin: No rashes, No breakdown Musculoskeletal: No Tenderness to Palpation of Joints or Extremities Neurological: No focal neurological deficits, Motor Exam 5/5 strength throughout, Sensory exam intact to light touch and pain Psych/Mental Status: Normal Affect, Appropriate Assessment & Plan Assessment/Plan (1) Non-ST elevation myocardial infarction (NSTEMI), initial episode of care: PLAN: Plan 1. Non-STEMI ?Consult cardiology for heart cath on Monday ? Continue with therapeutic Lovenox ? Echo with an EF of 60% with no evidence of diastolic dysfunction, there is some wall motion abnormality ? Continue with Lipitor 2. Leukocytosis with lactic acidosis ? This is likely reactive to her non-STEMI as well as the setting of her polyclonal gammopathy leading to her elevated white blood cell count ? She does not have sepsis or an infection 3. DM2 ? Continue with insulin ? Will hold her home medications ? Accu-Cheks ACHS 4. Anxiety/depression ? Stabilized ? Continue with her home medications 5. GERD ? Stable ? Continue with PPI DVT: Therapeutic Lovenox Charges/Coding Visit Charges Inpatient E&M: 44284 Subs Hosp L2
[2024-11-24] MEDS: Enoxaparin 100 MG/ML Syringe 90 MG SC ×2 (11:36→22:18)
[2024-11-24] MEDS: Insulin Glargine-YFGN 100 UNIT/ML Pen 10 UNIT SC (11:36)
[2024-11-24 12:00] LABS: Bedside Glucose 255 mg/dL (74-106)
--- NOTE | 2024-11-24 13:49 | PN.CARD_ITS ---
Subjective Subjective No further cardiac symptoms or leg weakness. Objective Data Vital Signs: Vital Signs Temp Pulse Resp BP Pulse Ox O2 Del Method O2 Flow Rate 97 F L 76 16 114/62 100 Nasal Cannula 2 11/24/24 10:10 11/24/24 10:10 11/24/24 10:10 11/24/24 10:10 11/24/24 10:10 11/24/24 10:10 11/24/24 10:10 Oxygen Flow Rate (L/min) 2 Oxygen Delivery Method Nasal Cannula Weight: 197 lb 12.074 oz Body Mass Index (BMI) 30.9 Intake & Output: Intake and Output for Last 24 Hours 11/22/24 11/23/24 11/24/24 23:59 23:59 23:59 Intake Total 1000 / 1000 2163.91 / 2403.91 397.03 / 397.03 Output Total 300 / 300 500 / 500 Balance 1000 / 1000 1863.91 / 2103.91 -102.97 / -102.97 Lab / Micro Data 11/24/24 03:38 11/24/24 03:38 Labs: Laboratory Results - last 24 hr 11/23/24 13:34: APTT 42.6 H 11/23/24 17:04: POC Glucose 309 H 11/23/24 20:55: APTT 40.5 H 11/23/24 21:16: POC Glucose 191 H 11/24/24 03:38: WBC 10.1, RBC 4.82, Hgb 14.8, Hct 44.7, MCV 92.7, MCH 30.7, MCHC 33.1, RDW Std Deviation 45.9 H, RDW Coeff of Ned 13.6, Plt Count 293, MPV 10.2, Immature Gran % (Auto) 0.400, Neut % (Auto) 41.3 L, Lymph % (Auto) 44.3 H, [place] % (Auto) 11.2 H, Eos % (Auto) 1.8, Baso % (Auto) 1.0, Absolute Neuts (auto) 4.2, Absolute Lymphs (auto) 4.45, Nucleated RBC % 0, APTT 62.4 H, Sodium 138, Potassium 3.8, Chloride 110 H, Carbon Dioxide 21.0, Anion Gap 8, BUN 16, Creatinine 0.75, Estim Creat Clear Calc 90.58, Est GFR (MDRD) Af Amer 101, Est GFR (MDRD) Non-Af 83, BUN/Creatinine Ratio 21.3 H, Glucose 247 H, Hemoglobin A1c 10.0 H, Calcium 9.2, Total Creatine Kinase 293 H 11/24/24 07:45: POC Glucose 244 H 11/24/24 10:07: APTT 25.9 11/24/24 11:33: POC Glucose 255 H Cardiology Labs/Tests 11/23/24 13:34: APTT 42.6 H 11/23/24 20:55: APTT 40.5 H 11/24/24 03:38: WBC 10.1, RBC 4.82, Hgb 14.8, Hct 44.7, MCV 92.7, MCH 30.7, MCHC 33.1, Plt Count 293, MPV 10.2, Immature Gran % (Auto) 0.400, Neut % (Auto) 41.3 L, Lymph % (Auto) 44.3 H, [place] % (Auto) 11.2 H, Eos % (Auto) 1.8, Baso % (Auto) 1.0, Absolute Neuts (auto) 4.2, Nucleated RBC % 0, APTT 62.4 H, Sodium 138, Potassium 3.8, Chloride 110 H, Carbon Dioxide 21.0, Anion Gap 8, BUN 16, Creatinine 0.75, Est GFR (MDRD) Af Amer 101, Est GFR (MDRD) Non-Af 83, B UN/Creatinine Ratio 21.3 H, Glucose 247 H, Hemoglobin A1c 10.0 H, Calcium 9.2 11/24/24 10:07: APTT 25.9 Rhythm: EKG: ECHO: Stress Test: Cardiac Cath: PCI: CT Surgery: Holter monitor: EPS: PPM: CXR: Chest CT Scan: Physical Exam Const alert and oriented x3 HEENT normocephalic Cardio regular rate Extremity no pedal edema Assessment & Plan Assessment/Plan (1) Non-ST elevation myocardial infarction (NSTEMI), initial episode of care: PLAN: Atypical presentation. However patient does have some wall motion abnormalities that are concerning on the echo as well. She has some nonspecific ST-T changes on the EKG as well. Reasonable to proceed with coronary angiography tomorrow. Charges/Coding Visit Charges Inpatient E&M: 39440 Subs Hosp L2
[2024-11-24 16:26] VITALS: BP 132/69; PULSE 76; RESP 14; TEMP 37.2; O2SAT 98
[2024-11-24 16:51] LABS: Bedside Glucose 203 mg/dL (74-106)
[2024-11-24 21:10] VITALS: BP 113/55; PULSE 81; RESP 18; TEMP 37.1; O2SAT 99
[2024-11-24] MEDS: Atorvastatin Calcium 40 MG Tablet PO (21:11)
[2024-11-24] MEDS: Zolpidem Tartrate 5 MG Tablet PO (21:11)
[2024-11-24 21:31] LABS: Bedside Glucose 220 mg/dL (74-106)
[2024-11-25] VITALS (11 sets, daily range): BP systolic 120–156; BP diastolic 69–91; PULSE 56–77; RESP 14–18; TEMP 36.6–37; O2SAT 94–100
[2024-11-25] MEDS: Aspirin E.C. 81 MG Tablet PO (05:54)
[2024-11-25 06:14] LABS: Absolute Lymphocyte Count 3.63 X10^3/uL (0.83-4.51); Absolute Neutrophil Count 4.6 X10^3/uL (2.0-7.7); Basophil# 0.09 X10^3/uL; Basophil% 0.9 % (0-1); Eosinophil# 0.22 X10^3/uL; Eosinophils% 2.3 % (0-5); Hematocrit 42.9 % (37-47); Lymphocyte # 3.63 X10^3/ul (0.83-4.51); Lymphocyte % 37.2 % (19-41); Mean Corp Hgb Conc 32.6 g/dL (32-36); Mean Corpuscular Hgb 30.4 pg (27.0-32.0); Mean Corpuscular Volume 93.1 fL (81-99); Monocyte# 1.22 X10^3/uL; Monocyte% 12.5 % (0-10); NRBC Flagged by Analyzer 0 % (0-5); Neutrophil # 4.56 X10^3/uL (2.7-7.7); Neutrophil % 46.8 % (47-70); Platelet Count 277 K/mm3 (150-450); RBC Distribution Width CV 13.4 % (11.6-14.6); RBC Distribution Width SD 45.6 fl (35.1-43.9); Red Blood Count 4.61 M/mm3 (4.2-5.4); White Blood Count 9.8 K/mm3 (4.4-11.0)
[2024-11-25 06:37] LABS: Anion Gap 8 (5-15); BUN 17 mg/dL (7-18); BUN/Creat Ratio 26.4 RATIO (10-20); Calcium,Total 9.3 mg/dL (8.5-10.1); Chloride 110 mmol/L (98-107); Creatinine, Serum 0.64 mg/dL (0.55-1.02); EST Glomerular Filtration Rate 99 mL/min (>60); Est Glom Filt Rate - Afr Amer 120 mL/min (>60); Estimated Creatinine Clearance 106.15 ml/min; Glucose 188 mg/dL (74-106); Potassium 3.8 mmol/L (3.5-5.1); Sodium Level 141 mmol/L (136-145)
--- NOTE | 2024-11-25 09:03 | CASEMGMT ---
Insurance review for hospitals In-network with?[employer] HMO insurance if transfer is recommended is as follows: [facility], [facility], [facility], [facility], [facility], , [place], [facility], [facility], and [place]. Noreen Dupont, Discharge Planning Asst.
--- NOTE | 2024-11-25 10:25 | PN.HOSP_ITS ---
Subjective Subjective Doing well, no issues overnight plan for cardiac cath today Objective Data Objective Data Vital Signs: Vital Signs Temp Pulse Resp BP Pulse Ox O2 Del Method O2 Flow Rate 98.0 F 61 16 124/85 H 97 Nasal Cannula 2 11/25/24 06:00 11/25/24 06:00 11/25/24 06:00 11/25/24 06:00 11/25/24 06:00 11/25/24 09:29 11/25/24 09:29 Oxygen Flow Rate (L/min) 2 Oxygen Delivery Method Nasal Cannula Weight: 197 lb 12.074 oz Body Mass Index (BMI) 30.9 Intake & Output: Intake and Output for Last 24 Hours 11/24/24 11/25/24 11/26/24 03:59 03:59 03:59 Intake Total 2403.91 / 2403.91 1357.03 / 1357.03 Output Total 800 / 800 Balance 1603.91 / 1603.91 1357.03 / 1357.03 Lab / Micro Data 11/25/24 05:40 11/25/24 05:40 Labs: Laboratory Results - last 24 hr 11/24/24 10:07: APTT 25.9 11/24/24 11:33: POC Glucose 255 H 11/24/24 16:24: POC Glucose 203 H 11/24/24 21:13: POC Glucose 220 H 11/25/24 05:40: WBC 9.8, RBC 4.61, Hgb 14.0, Hct 42.9, MCV 93.1, MCH 30.4, MCHC 32.6, RDW Std Deviation 45.6 H, RDW Coeff of Ned 13.4, Plt Count 277, MPV 10.0, Immature Gran % (Auto) 0.300, Neut % (Auto) 46.8 L, Lymph % (Auto) 37.2, [place] % (Auto) 12.5 H, Eos % (Auto) 2.3, Baso % (Auto) 0.9, Absolute Neuts (auto) 4.6, Absolute Lymphs (auto) 3.63, Nucleated RBC % 0, Sodium 141, Potassium 3.8, C hloride 110 H, Carbon Dioxide 22.0, Anion Gap 8, BUN 17, Creatinine 0.64, Estim Creat Clear Calc 106.15, Est GFR (MDRD) Af Amer 120, Est GFR (MDRD) Non-Af 99, B UN/Creatinine Ratio 26.4 H, Glucose 188 H, Calcium 9.3 Physical Exam Narrative General: Alert, Oriented x3, Cooperative, No apparent distress HEENT: Atraumatic, PERRLA, EOMI, Normocephalic Oral: Moist Mucosa Neck: Supple, No JVD Lungs: Diminished, Normal air movement, No rhonchi, No wheeze, No rales Cardiovascular: Regular rate, Regular Rhythm, Normal S1, Normal S2, No murmurs Abdomen: Soft, Non Tender, Non-Distended, No Hepato-splenomegaly Extremities: No edema, Capillary Refill Less than 3 Seconds Skin: No rashes, No breakdown Musculoskeletal: No Tenderness to Palpation of Joints or Extremities Neurological: No focal neurological deficits, Motor Exam 5/5 strength throughout, Sensory exam intact to light touch and pain Psych/Mental Status: Normal Affect, Appropriate Assessment & Plan Assessment/Plan (1) Non-ST elevation myocardial infarction (NSTEMI), initial episode of care: PLAN: Plan 1. Non-STEMI ?Consult cardiology for heart cath today ? Continue with therapeutic Lovenox, will hold today's morning dose ? Echo with an EF of 60% with no evidence of diastolic dysfunction, there is some wall motion abnormality ? Continue with Lipitor 2. Leukocytosis with lactic acidosis?resolved ? This is likely reactive to her non-STEMI as well as the setting of her polyclonal gammopathy leading to her elevated white blood cell count ? She does not have sepsis or an infection 3. DM2 ? Continue with insulin ? Will hold her home medications ? Accu-Cheks ACHS 4. Anxiety/depression ? Stabilized ? Continue with her home medications 5. GERD ? Stable ? Continue with PPI DVT: Therapeutic Lovenox Charges/Coding Visit Charges Inpatient E&M: 23472 Subs Hosp L2
[2024-11-25] MEDS: 0.9% Saline Lock 10 ML Syringe IV (10:58)
[2024-11-25 11:18] LABS: Bedside Glucose 183 mg/dL (74-106)
--- NOTE | 2024-11-25 12:17 | NURSING ---
Report called to quality assurance lab technician SALO Lee.
--- NOTE | 2024-11-25 13:59 | CL.I_ITS ---
Patient Name: LUCITA SUTHERLAND Study Date: 11/25/2024 Performing: Shabnam Cam MD Ht: 67 inches 170.18 cm : 1960 Wt: 197.75 lbs 89.7 kg Age: 63 Gender: female BSA: 2.01 PROCEDURE(S) PERFORMED DC02-(33950)LHC/COR IC12-([id number])JUAN DIEGO W/WO PTCA, SINGLE CORONARY ARTERY IC12-([id number])JUAN DIEGO W/WO PTCA, SINGLE CORONARY ARTERY CLINICAL PROFILE AND CO-MORBIDITIES Indications: ACS > 24 hrs Heart Failure: None CAD Presentations: Non-STEMI. Symptom onset Date/Time: 11/23/2024 Time Not Available CONCLUSIONS 90% Prox OM2 70% Prox, 60% Mid LAD 30% Prox LMCA 30-40% RCA Successful JUAN DIEGO Prox OM2 using [place] 2.5x18 mm Successful JUAN DIEGO Prox LAD using [place] 3.5x15 mm, post-dilated using 3.75 mm balloon RECOMMENDATIONS ASA Indefinitley P2Y12 inhibitors for atleast 6 months DESCRIPTION OF PROCEDURE The patient arrived to the procedure lab. The risks and benefits of the procedure as well as a full description of our services here and lack of surgical backup were fully explained to the patient and/or their significant other prior to the catheterization. The Timeout was completed, verifying the correct patient and procedure. The patient's procedural site was prepped and draped in the usual fashion. Local anesthetic was given subcutaneously to right radial region with Lidocaine 2%. Using a modified Seldinger technique, arterial access was obtained via the right radial artery, a 6Fr sheath was inserted.. Left Coronary Artery selective angiography was performed in multiple views using a 5 Fr. 4.0 [place] catheter. Right Coronary Artery selective angiography was then performed in multiple views using a 5 Fr. 4.0 [place] catheterThe images were reviewed and options discussed. A decision was then made to proceed with an Intervention, IVUS or other adjunct procedure. XB 3 Guide catheter was inserted and engaged into the LCA. {L1} RUNTHROUGH Guide wire was advanced to the 2nd OM. OYNX FRONTIER 2.5 X 18 Drug Eluting stent was inserted. Drug Eluting stent was advanced across the lesion in the second obtuse marginal, proximal Angiogram performed pre stent deployment. NC EUPHORA 2.5 12 Balloon catheter was inserted. Balloon catheter was inserted post stent. Angiogram performed pre balloon dilatation. Angiogram performed post balloon dilatation. Angiogram performed post balloon dilatation. Guide wire was repositioned to the LAD FLOR[place] FRONTIER 3.5 X 15 Drug Eluting stent was inserted. Drug Eluting stent was advanced across the lesion in the LAD, proximal. Angiogram performed pre stent deployment. NC [place]ER[place] 3.75 X 12 Balloon catheter was inserted post stent. Angiogram performed pre balloon dilatation. Angiogram performed post balloon dilatation. The arterial sheath was pulled and a TR Band was applied for hemostasis 10 ml of air CORONARY ANGIOGRAPHY DOMINANCE: Right Dominant LEFT MAIN: Tubular 30% Ostial lesion in LMCA LEFT ANTERIOR DESCENDING ARTERY: LAD: Tubular 70% Proximal lesion in LAD Tubular 60% Mid lesion in LAD OM 1: Complex 90% Proximal lesion in MARG2 OM 2: Complex 90% Proximal lesion in MARG2 RIGHT CORONARY ARTERY: RCA: Tubular 30% Proximal lesion in RCA Tubular 40% Mid lesion in RCA INTERVENTION INFORMATION LESION SITE: 2nd OM (Proximal) thrombus present: Yes, lesion length: 16 mm, culprit lesion: Yes, Lesion Complexity: High/C Pre Stenosis: 90 % Pre intervention KENYA flow: 3 PROCEDURE: Drug Eluting Stent with post dilatation Post Stenosis: 0 % Post intervention KENYA flow: 3 Lesion Devices: Cordis 6 Fr XB3.0 100cm Guide Catheter Terumo .014 180cm Runthrough Extra Floppy straight Medtronic 2.50 x 18 FLORENTINO FRONTIER JUAN DIEGO Medtronic [place] EUPHORA RX 2.5x12 BALLOON LESION SITE: LAD (Proximal) Lesion Complexity: Non-High/Non-C, lesion length: 14 mm, culprit lesion: No Pre Stenosis: 70 % Pre intervention KENYA flow: 3 PROCEDURE: Drug Eluting Stent with post dilatation Post Stenosis: 0 % Post intervention KENYA flow: 3 Lesion Devices: Cordis 6 Fr XB3.0 100cm Guide Catheter Terumo .014 180cm Runthrough Extra Floppy straight Medtronic 3.5 x 15 [place] FRONTIER JUAN DIEGO [employer] NC EMERGE MR 3.75x12 BALLOON COMPLICATIONS No Complications PROCEDURE MEDICATIONS Fentanyl 50 mcg IV Versed 1 mg IV Versed 1 mg IV Oxygen: 2 L/min via nasal cannula Brilinta 180 mg PO @ 11/25/2024 13:09:58 Heparin given IA 11/25/2024 12:58:46 Heparin 6000 unit(s) IV 11/25/2024 13:10:03 Heparin 2000 unit(s) IV 11/25/2024 13:49:53 Nitro 200 mcg IC 11/25/2024 13:25:34 Nitro 200 mcg IC 11/25/2024 13:25:34 Nitro 200 mcg IC 11/25/2024 13:34:33 Verapamil 2.5mg, Ntg 200mcgs, 2000 units of Heparin given IA 11/25/2024 12:58:46 IV Bolus: .9 NaCl 200 ml total 11/25/2024 13:50:40 SUMMARY OF HEMODYNAMIC DATA Time AIR REST ECG 12:41:01 AO 139/92 (111) SA 13:04:27 AO 143/91 (113) 13:06:38 AO 142/82 (106) 13:12:47 AO 164/98 (122) 13:30:05 13:53:35 Signed By Shabnam Cam MD On 11/25/2024 13:58:25 Shabnma Cam MD
[2024-11-25 14:00] LABS: ACT Activated Clotting Time 273 sec (74-137)
[2024-11-25 14:01] LABS: ACT Activated Clotting Time 227 sec (74-137)
[2024-11-25] MEDS: Gabapentin 600 MG Tablet PO ×2 (15:08→21:24)
[2024-11-25] MEDS: Etodolac 200 MG Capsule PO (15:08)
[2024-11-25] MEDS: Folic Acid 1 MG Tablet PO (15:08)
[2024-11-25] MEDS: Venlafaxine XR 150 MG Capsule PO (15:08)
[2024-11-25] MEDS: Insulin Glargine-YFGN 100 UNIT/ML Pen 10 UNIT SC (15:09)
[2024-11-25] MEDS: 0.9% Normal Saline (1000mL) 1,000 ML 150 ML IV (15:11)
--- NOTE | 2024-11-25 15:50 | CRPHASE1 ---
Patient Communication Patient Information PHII Cardiac Rehab Discussed with Patient:: Yes Guide to Cardiac Rehab Given to Patient:: Yes Cardiac Rehab Facility Choice List Given to Patient:: Yes Communication to Cardiac Rehab Choice Program [facility] CR PHII:: Communication Given to CR Trapeze Performer:: Shabnam Cam Phase II Cardiac Rehab:: Yes Sessions:: 36 sessions - 3 days/wk, 12 weeks Cardiac Rehabilitation Info Program Information Cardiac Rehabilitation Program Information: Cardiac Rehab The cardiac rehab team at [facility] consists of highly skilled exercise physiologists, nurses, respiratory therapists and physicians working together with you. Our purpose is to help you have a full recovery and achieve the goals you set for yourself. Over the years many of our patients have returned to activities they assumed they would never do again! We can help restore your confidence and motivation to make lifestyle changes that can have a significant impact on your health and quality of life! We can help answer questions and concerns you may have about exercise, lifestyle, medications, diet, stress and anxiety which are common following a hospitalization. WE monitor ECG and vital signs during exercise and discuss your progress with you and report to your physician(s). Cardiac Rehab is proven to help reduce readmissions, improve functional capacity and lower recurrence of problems with your heart. Our Cardiac Rehab program is Certified by the [employer] [employer] Pulmonary [employer] (AACVPR) and Accredited by the [employer] through our [facility]. You can contact us at . We invite you to call us with your questions or to get started in our program. If you have other questions or concerns be sure to ask your physician/provider during your follow-up visit. WE look forward to seeing you!
--- NOTE | 2024-11-25 15:50 | CRPH1.INSTRU ---
General Education Discussed with Patient CAD and cardiac anatomy and function:: Patient communicates acknowledgment Explanation of diagnoses and procedures:: Patient communicates acknowledgment Sign/Symptoms of LA:: Patient communicates acknowledgment Antiplatelet therapy: Patient communicates acknowledgment Proper use of NTG-SL: Patient communicates acknowledgment Emergency procedures and activation of EMS: Patient communicates acknowledgment Compliance of all prescribed medications: Patient communicates acknowledgment Smoking Recommendations Recommendations Include:: Previous smoker; encourage continued cessation Response Code Nicotine/Smoking Response Code:: Patient communicates acknowledgment Dyslipidemia Risk Factors Patient Dyslipidemia Risk Factors Are:: Total Cholesterol, Triglycerides, HDL and LDL Recommendations Recommendations Include:: Lipid profile provided, Reviewed NCEP/ATP guidelines and Therapeutic Lifestyle Change dietary guidelines Response Code Dyslipidemia Response Code:: Patient communicates acknowledgment Overweight/Obesity Risk Factors Patient Overweight/Obesity Risk Factors Are:: Obesity - > or = 30 Recommendations Recommendations Include:: Weight loss of 5-10%, Reduced calorie diet and Exercise 5-7 times/week Response Code Overweight/Obesity:: Patient communicates acknowledgment Hypertension Risk Factors Patient Hypertension Risk Factors Are:: No documented hx of HTN Diabetes Risk Factors Patient Diabetes Risk Factors Are:: Elevated blood sugars Recommendations Recommendations Include:: Maintain fasting blood sugars 70-110 md/dL, Maintain HgbA1c of 6% or less, Monitor blood sugar as prescribed, Diabetic dietary guidelines and Decrease/maintain body weight Response Code Diabetes:: Patient communicates acknowledgment Metabolic Syndrome Risk Factors Patient Metabolic Syndrome Risk Factors Are [3 of 5]:: Fasting blood sugar > 100 mg/dL, Waist circumference > 35 [female] or 40 [male] and High triglyceride >150 Recommendations Recommendations Include:: Reinforce compliance to risk factor modifications, Patient is diabetic and Encouraged follow-up with Primary Care Physician Response Code Metabolic Syndrome Response Code:: Patient communicates acknowledgment Sedentary Risk Factors Patient Sedentary Risk Factors Are:: Lack of regular exercise Recommendations Recommendations Include:: Aerobic exercise 5-7 times/week for 20-30 minutes continuously, Benefits of regular exercise, Discussed home walking program and Monitored Outpatient Cardiac Rehab Response Code Sedentary Response Code:: Patient communicates acknowledgment Stress Recommendations Recommendations Include:: Identification of stressors, and assessment of coping skills and Stress management techniques Response Code Stress Response Code:: Patient communicates acknowledgment
[2024-11-25] MEDS: Ibuprofen 200 MG Tablet PO (16:20)
[2024-11-25] MEDS: Insulin Lispro 100 UNIT/ML INSULN.PEN 10 UNIT SC (17:14)
[2024-11-25] MEDS: Insulin Lispro 100 UNIT/ML INSULN.PEN SC ×2 (17:14→21:24)
[2024-11-25 17:35] LABS: Bedside Glucose 198 mg/dL (74-106)
[2024-11-25] MEDS: Clopidogrel Bisulfate 300 MG Tablet PO (18:53)
[2024-11-25] MEDS: Lisinopril 5 MG Tablet PO (21:22)
[2024-11-25] MEDS: Zolpidem Tartrate 5 MG Tablet PO (21:23)
[2024-11-25] MEDS: LORazepam 0.5 MG Tablet PO (21:23)
[2024-11-25] MEDS: Atorvastatin Calcium 40 MG Tablet PO (21:23)
[2024-11-25] MEDS: Carvedilol 3.125 MG TABLET PO (21:23)
[2024-11-25 21:48] LABS: Bedside Glucose 205 mg/dL (74-106)
[2024-11-26 03:15] VITALS: BP 126/80; PULSE 68; RESP 16; TEMP 36.6; O2SAT 94
[2024-11-26] MEDS: Gabapentin 600 MG Tablet PO (06:32)
[2024-11-26 07:02] LABS: Absolute Lymphocyte Count 2.67 X10^3/uL (0.83-4.51); Absolute Neutrophil Count 6.3 X10^3/uL (2.0-7.7); Basophil# 0.08 X10^3/uL; Basophil% 0.8 % (0-1); Eosinophil# 0.16 X10^3/uL; Eosinophils% 1.5 % (0-5); Hematocrit 43.8 % (37-47); Hemoglobin 14.7 g/dL (12.0-15.0); Lymphocyte # 2.67 X10^3/ul (0.83-4.51); Lymphocyte % 25.4 % (19-41); Mean Corp Hgb Conc 33.6 g/dL (32-36); Mean Corpuscular Volume 92.4 fL (81-99); Mean Platelet Vol. 10.1 fl (6.2-12.0); Monocyte# 1.26 X10^3/uL; NRBC Flagged by Analyzer 0 % (0-5); Neutrophil # 6.32 X10^3/uL (2.7-7.7); Neutrophil % 59.9 % (47-70); Platelet Count 277 K/mm3 (150-450); RBC Distribution Width CV 13.4 % (11.6-14.6); RBC Distribution Width SD 45.6 fl (35.1-43.9); Red Blood Count 4.74 M/mm3 (4.2-5.4); White Blood Count 10.5 K/mm3 (4.4-11.0)
[2024-11-26 08:42] LABS: ALB/GLOB Ratio 0.8 RATIO (0.9-2.4); AST(SGOT) 23 U/L (15-37); Alanine Aminotransfer ALT/SGPT 21 U/L (13-56); Albumin, Serum 3.1 g/dL (3.2-5.0); Alkaline Phosphatase 109 U/L (45-117); Anion Gap 5 (5-15); BUN 13 mg/dL (7-18); BUN/Creat Ratio 19.4 RATIO (10-20); Calcium,Total 9.4 mg/dL (8.5-10.1); Chloride 110 mmol/L (98-107); Creatinine, Serum 0.67 mg/dL (0.55-1.02); EST Glomerular Filtration Rate 95 mL/min (>60); Est Glom Filt Rate - Afr Amer 115 mL/min (>60); Estimated Creatinine Clearance 101.39 ml/min; Globulin 3.8 g/dL (2.2-4.2); Glucose 209 mg/dL (74-106); Potassium 4.2 mmol/L (3.5-5.1); Protein, Total 6.9 g/dL (6.4-8.2); Sodium Level 139 mmol/L (136-145)
[2024-11-26 08:45] VITALS: BP 125/85; PULSE 60; RESP 16; TEMP 36.7; O2SAT 96
[2024-11-26] MEDS: Insulin Lispro 100 UNIT/ML INSULN.PEN 10 UNIT SC ×2 (08:50→12:48)
[2024-11-26] MEDS: Insulin Glargine-YFGN 100 UNIT/ML Pen 10 UNIT SC (08:51)
[2024-11-26] MEDS: Insulin Lispro 100 UNIT/ML INSULN.PEN SC ×2 (08:51→12:49)
[2024-11-26] MEDS: Aspirin E.C. 81 MG Tablet PO (08:52)
[2024-11-26] MEDS: Venlafaxine XR 150 MG Capsule PO (08:53)
[2024-11-26] MEDS: Carvedilol 3.125 MG TABLET PO (08:53)
[2024-11-26] MEDS: Clopidogrel Bisulfate 75 MG Tablet PO (08:53)
[2024-11-26] MEDS: Folic Acid 1 MG Tablet PO (08:53)
[2024-11-26] MEDS: Lisinopril 5 MG Tablet PO (08:53)
[2024-11-26] MEDS: Etodolac 200 MG Capsule PO (08:54)
[2024-11-26] MEDS: LORazepam 0.5 MG Tablet PO (08:59)
[2024-11-26 09:21] LABS: Bedside Glucose 218 mg/dL (74-106)
--- NOTE | 2024-11-26 09:30 | PCM.PN.CARD ---
Subjective Subjective Denies any complaints. No chest pains. No shortness of breath. No palpitations. Objective Data Vital Signs: Vital Signs Temp Pulse Resp BP Pulse Ox O2 Del Method O2 Flow Rate 98.0 F 60 16 125/85 H 96 Room Air 2 11/26/24 08:45 11/26/24 08:45 11/26/24 08:45 11/26/24 08:45 11/26/24 08:45 11/26/24 09:04 11/25/24 10:54 Oxygen Flow Rate (L/min) 2 Oxygen Delivery Method Room Air Weight: 197 lb 12.074 oz Body Mass Index (BMI) 30.9 Intake & Output: Intake and Output for Last 24 Hours 11/24/24 11/25/24 11/26/24 23:59 23:59 23:59 Intake Total 1597.03 / 1597.03 1000 / 1000 Output Total 500 / 500 Balance 1097.03 / 1097.03 1000 / 1000 Lab / Micro Data 11/26/24 06:36 11/26/24 06:36 Labs: Laboratory Results - last 24 hr 11/25/24 11:00: POC Glucose 183 H 11/25/24 13:16: Activated Clotting Time 273 H 11/25/24 13:45: Activated Clotting Time 227 H 11/25/24 17:12: POC Glucose 198 H 11/25/24 21:16: POC Glucose 205 H 11/26/24 06:36: WBC 10.5, RBC 4.74, Hgb 14.7, Hct 43.8, MCV 92.4, MCH 31.0, MCHC 33.6, RDW Std Deviation 45.6 H, RDW Coeff of Ned 13.4, Plt Count 277, MPV 10.1, Immature Gran % (Auto) 0.400, Neut % (Auto) 59.9, Lymph % (Auto) 25.4, [place] % (Auto) 12.0 H, Eos % (Auto) 1.5, Baso % (Auto) 0.8, Absolute Neuts (auto) 6.3, Absolute Lymphs (auto) 2.67, Nucleated RBC % 0, Sodium 139, Potassium 4.2, Chloride 110 H, Carbon Dioxide 25.0, Anion Gap 5, BUN 13, Creatinine 0.67, Estim Creat Clear Calc 101.39, Est GFR (MDRD) Af Amer 115, Est GFR (MDRD) Non-Af 95, BUN/Creatinine Ratio 19.4, Glucose 209 H, Calcium 9.4, Total Bilirubin 0.70, AST 23, ALT 21, Alkaline Phosphatase 109, Total Protein 6.9, Albumin 3.1 L, Globulin 3.8, Albumin/Globulin Ratio 0.8 L 11/26/24 08:44: POC Glucose 218 H Cardiology Labs/Tests 11/26/24 06:36: WBC 10.5, RBC 4.74, Hgb 14.7, Hct 43.8, MCV 92.4, MCH 31.0, MCHC 33.6, Plt Count 277, MPV 10.1, Immature Gran % (Auto) 0.400, Neut % (Auto) 59.9, Lymph % (Auto) 25.4, [place] % (Auto) 12.0 H, Eos % (Auto) 1.5, Baso % (Auto) 0.8, Absolute Neuts (auto) 6.3, Nucleated RBC % 0, Sodium 139, Potassium 4.2, Chloride 110 H, Carbon Dioxide 25.0, Anion Gap 5, BUN 13, Creatinine 0.67, Est GFR (MDRD) Af Amer 115, Est GFR (MDRD) Non-Af 95, BUN/Creatinine Ratio 19.4, Glucose 209 H, Calcium 9.4, Total Bilirubin 0.70 Rhythm: EKG: ECHO: Stress Test: Cardiac Cath: PCI: CT Surgery: Holter monitor: EPS: PPM: CXR: Chest CT Scan: Physical Exam Narrative Comfortable. No apparent distress. Heart sounds 1 and 2 are normal. Chest clear to auscultation bilaterally. Alert oriented x 3. No ankle edema. Right radial pulse 2+. Assessment & Plan Assessment/Plan (1) NSTEMI (non-ST elevated myocardial infarction): PLAN: Status post JUAN DIEGO to the obtuse marginal and to the LAD. Continue aspirin and Plavix. (2) Coronary artery disease: PLAN: Aspirin, clopidogrel, beta-blockers, statins. (3) Hypertension: PLAN: Carvedilol and lisinopril. (4) Dyslipidemia: PLAN: Atorvastatin. (5) Diabetes mellitus, type 2: QUALIFIERS: Diabetes mellitus continuous churn buttermaker insulin use: with continuous churn buttermaker use Diabetes mellitus complication status: with other specified complication Qualified Code(s): E11.69 - Type 2 diabetes mellitus with other specified complication; Z79.4 - intermediate accountant (current) use of insulin PLAN: As per internal medicine. PLAN: Plan Okay to discharge home today. Follow-up as outpatient.
--- NOTE | 2024-11-26 11:13 | DCINST_ITS ---
Discharge Instructions Diet Discharge Diet: Low fat / Low cholesterol and Carb Control Diet DC O2, CPAP, BIPAP needs Home O2 Discharge instructions: No Dressing / Incision Discharge Activity: Return to Normal Activity Dressing / Incision Call your doctor if you observe: Fever of 101 or Higher, Shortness of breath, Dizziness, Fainting spells, Swelling in the ankles, Chest pain and Increased palpitations (irregular heartbeat) Follow Up Care Test Results: Test results from this visit will be discussed in further detail at your follow- up appointment, if applicable. Discharge Plan Admission Admit Date/Time: 11/23/24 00:18 Attending Provider: Bunny Lee Primary Care Provider: Leilani Brantley Consulting Providers: Onel Mcfarland; Meeta Porras; Shabnam Cam; Refugio Caldera; Marcos Lance; Dragan Hines; Mariusz Real; De Swain; Navdeep Welch; Alex Kirby; Cruz Joaquin NP; Belia Valenzuela; Robin Pena; David Aldrich Discharge Orders/Prescriptions Prescriptions: New atorvastatin 40 mg Tablet 40 mg PO QHS 30 Days Qty: 30 0RF clopidogrel 75 mg Tablet 75 mg PO DAILY 30 Days Qty: 30 0RF aspirin 81 mg Tablet,Delayed Release (Dr/Ec) 81 mg PO BREAKFAST 30 Days Qty: 30 0RF carvedilol 3.125 mg Tablet 3.125 mg PO BID 30 Days Qty: 60 0RF lisinopril 5 mg Tablet 5 mg PO DAILY 30 Days Qty: 30 0RF Continued leucovorin calcium 5 mg tablet 5 mg PO DAILY lorazepam 0.5 mg tablet 0.5 mg PO BID PRN (Reason: anxiety) Patient Comments: TAKE 1 TABLET BY MOUTH TWICE A DAY NEEDED FOR ANXIETY zolpidem 10 MG tablet 10 mg PO QHS gabapentin 600 mg tablet extended release 24 hr 600 mg PO TID ondansetron 4 mg tablet,disintegrating 4 mg PO Q8H PRN PRN (Reason: Nausea) Qty: 10 0RF glipizide 10 mg tablet extended release 24hr 20 mg PO DAILY cyclobenzaprine 10 mg tablet 10 - 30 mg PO DAILY PRN (Reason: muscle spasticity) methotrexate sodium 2.5 mg tablet 20 mg PO QWEEK folic acid 1 mg tablet 1 mg PO DAILY Novolin R FlexPen 100 unit/mL (3 mL) insulin pen 10 unit subcut TID tizanidine 4 mg tablet 4 mg PO TID PRN PRN (Reason: muscle spasm) venlafaxine 150 mg capsule,extended release 24hr 150 mg PO DAILY omeprazole 40 mg capsule,delayed release(DR/EC) 40 mg PO DAILY PRN (Reason: gastric reflux) venlafaxine 75 mg capsule,extended release 24hr 75 mg PO DAILY Patient Comments: TAKE 1 CAPSULE BY MOUTH EVERY DAY (WITH 150MG) Rx Instructions: (take with 150mg) Discontinued nabumetone 500 mg tablet 500 mg PO BID Referrals / Follow Up: Leilani Brantley DO [Primary Care Provider] - Within 1 Week Mariusz Real MD [Med Staff - Active Staff] - Within 1 Month Disposition Disposition (needs filled in before D/C Order can be placed): Home, Self Care
--- NOTE | 2024-11-26 12:20 | PHA.DC.MC.R ---
Pharmacy [facility] Service has performed discharge medication reconciliation and counseling for this patient. 1. ASPIRIN 81MG PO BREAKFAST 2. ATORVASTATIN 40MG PO QHS 3. CARVEDILOL 3.125MG PO BID 4. CLOPIDOGREL 75MG PO DAILY 5. LISINOPRIL 5MG PO DAILY The patient's discharge medication list was reviewed for discrepancies and discrepancies were resolved. The patient was counseled on the following discharge medications and changes in medications for homegoing were reviewed. The Reason for Use, instructions for use, and potential side effects were reviewed for all new medications. The patient's questions regarding all of their medications were answered. The patient was able to verbally demonstrate an understanding of their discharge medications. Medications at Discharge Home Medications zolpidem 10 mg tablet 10 mg PO QHS insomnia 06/14/17 gabapentin 600 mg tablet,extended release 24 hr 600 mg PO TID neuropathy 05/24/19 leucovorin calcium 5 mg tablet 5 mg PO DAILY supplement 06/17/22 lorazepam 0.5 mg tablet 0.5 mg PO BID PRN anxiety 06/17/22 ondansetron 4 mg disintegrating tablet 4 mg PO Q8H PRN PRN Nausea #10 tabs 02/08/23 cyclobenzaprine 10 mg tablet 10 - 30 mg PO DAILY PRN muscle spasticity 11/22/24 folic acid 1 mg tablet 1 mg PO DAILY supplement 11/22/24 glipizide 10 mg tablet, extended release 24 hr 20 mg PO DAILY DM 11/22/24 insulin regular human 100 unit/mL (3 mL) subcutaneous pen (Novolin R FlexPen) 10 unit subcut TID diabetes 11/22/24 methotrexate sodium 2.5 mg tablet 20 mg PO QWEEK RA 11/22/24 omeprazole 40 mg capsule,delayed release 40 mg PO DAILY PRN gastric reflux 11/22/24 tizanidine 4 mg tablet 4 mg PO TID PRN PRN muscle spasm 11/22/24 venlafaxine 150 mg capsule,extended release 24 hr 150 mg PO DAILY depression; anxiety 11/22/24 aspirin 81 mg tablet,delayed release 81 mg PO BREAKFAST 30 days #30 tabs 11/26/24 atorvastatin 40 mg tablet 40 mg PO QHS 30 days #30 tabs 11/26/24 carvedilol 3.125 mg tablet 3.125 mg PO BID 30 days #60 tabs 11/26/24 clopidogrel 75 mg tablet 75 mg PO DAILY 30 days #30 tabs 11/26/24 lisinopril 5 mg tablet 5 mg PO DAILY 30 days #30 tabs 11/26/24 venlafaxine 75 mg capsule,extended release 24 hr 75 mg PO DAILY depression 11/26/24
[2024-11-26 13:09] LABS: Bedside Glucose 221 mg/dL (74-106)
--- NOTE | 2024-11-26 13:30 | CASEMGMT ---
Patient has order for discharge. RN CM in to discuss needs at discharge, at bedside. Patient denies needs or help at discharge. Patient had no further questions or concerns.
[2024-11-26 13:55] VITALS: BP 101/65; PULSE 67; RESP 17; O2SAT 96
--- NOTE | 2024-11-26 14:32 | CHAPLAIN ---
Type of Pastoral Visit _x__ Initial Visit ___ Follow-up Visit ___ On-call Visit ___ General Patient Visit ___ Spiritual Assessment ___ Family Conference ___ Bereavement ___ Rapid Response ___ Code Blue ___ Other (describe below) Pastoral Care Referral From _x__ Patient ___ Family ___ Nurse ___ Physician ___ Curator Of Manuscripts ___ Pc Maintenance Technician ___ Other (describe below) Sacrament/Intervention _x__ Active listening ___ Anointing ___ Scientologist ___ Bereavement ___ Communion _x__ Nancy exploration ___ ___ Life review _x__ Prayer ___ Reconciliation ___ Sacrament of Sick _x__ Supportive presence ___ Wedding ___ Other (describe below) Pastoral Comments patient is welcoming and begins to say that she is happier now than any time in her life; pt explains that she had good news after believing it might be the worst news of her life; pt is 'ready to love more; pt has a friend on the phone and others that are in her life; pt says that she is going to start going to sabianist and to praise God for life; prayer welcomed
--- NOTE | 2024-11-26 15:01 | PCM.DC.SUM ---
Providers Date of Admission: 11/23/24 Primary Care Physician: Dr. Leilani Brantley, Consultations 11/23/24 00:53 Consult: Cardiology Routine Consulting Provider: Jessica Kim Reason for Consult: Chest Pain EMERGENT Consult: No MD Notified: Yes Date Notified: 11/23/24 Time Notified: 00:21 Method of Notification: ED Physician Initiated Reason For Visit: NSTEMI, METFORMIN-INDUCED LACTIC ACIDOSIS Diagnosis Discharge Diagnosis (1) NSTEMI (non-ST elevated myocardial infarction): Status: Acute Code(s): I21.4 - Non-ST elevation (NSTEMI) myocardial infarction (2) Coronary artery disease: Status: Acute Code(s): I25.10 - Atherosclerotic heart disease of [place] coronary artery without angina pectoris (3) Hypertension: Status: Chronic Code(s): I10 - Essential (primary) hypertension (4) Dyslipidemia: Status: Acute Code(s): E78.5 - Hyperlipidemia, unspecified (5) Diabetes mellitus, type 2: Status: Acute Code(s): E11.9 - Type 2 diabetes mellitus without complications Qualifiers: Diabetes mellitus long-term insulin use: with intermediate frame tender use Diabetes mellitus complication status: with other specified complication Qualified Code(s): E11.69 - Type 2 diabetes mellitus with other specified complication; Z79.4 - group home (current) use of insulin Medications at Discharge Home Medications zolpidem 10 mg tablet 10 mg PO QHS insomnia 06/14/17 gabapentin 600 mg tablet,extended release 24 hr 600 mg PO TID neuropathy 05/24/19 leucovorin calcium 5 mg tablet 5 mg PO DAILY supplement 06/17/22 lorazepam 0.5 mg tablet 0.5 mg PO BID PRN anxiety 06/17/22 ondansetron 4 mg disintegrating tablet 4 mg PO Q8H PRN PRN Nausea #10 tabs 02/08/23 cyclobenzaprine 10 mg tablet 10 - 30 mg PO DAILY PRN muscle spasticity 11/22/24 folic acid 1 mg tablet 1 mg PO DAILY supplement 11/22/24 glipizide 10 mg tablet, extended release 24 hr 20 mg PO DAILY DM 11/22/24 insulin regular human 100 unit/mL (3 mL) subcutaneous pen (Novolin R FlexPen) 10 unit subcut TID diabetes 11/22/24 methotrexate sodium 2.5 mg tablet 20 mg PO QWEEK RA 11/22/24 omeprazole 40 mg capsule,delayed release 40 mg PO DAILY PRN gastric reflux 11/22/24 tizanidine 4 mg tablet 4 mg PO TID PRN PRN muscle spasm 11/22/24 venlafaxine 150 mg capsule,extended release 24 hr 150 mg PO DAILY depression; anxiety 11/22/24 aspirin 81 mg tablet,delayed release 81 mg PO BREAKFAST 30 days #30 tabs 11/26/24 atorvastatin 40 mg tablet 40 mg PO QHS 30 days #30 tabs 11/26/24 carvedilol 3.125 mg tablet 3.125 mg PO BID 30 days #60 tabs 11/26/24 clopidogrel 75 mg tablet 75 mg PO DAILY 30 days #30 tabs 11/26/24 lisinopril 5 mg tablet 5 mg PO DAILY 30 days #30 tabs 11/26/24 venlafaxine 75 mg capsule,extended release 24 hr 75 mg PO DAILY depression 11/26/24 Hospital Course Operations None Procedures 2-D Echocardiogram and Cardiac catheterization Summary of Care Provided Minutes Spent on Discharge: 36 Hospital Course: Per HPI: LUCITA SUTHERLAND, is a 63 F with a past medical history of hyperlipidemia; not on treatment, obesity; with BMI of 31.5 this admission, former history of tobacco abuse; quit 2005, DM-2; of unknown control on glipizide and regular insulin 10 units 3 times daily, diabetic neuropathy with decreased sensitivity in both feet and legs up to the knee; on gabapentin 3 times daily, RA (since 2021); on methotrexate weekly and leucovorin daily, history of reactive polyclonal gammopathy; 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 Jung of oncology (2021) with no further workup recommended, depression with anxiety; on venlafaxine and as needed lorazepam twice daily, chronic insomnia; on zolpidem, history of CTS, history of soft tissue abscesses of face and Right wrist, history of colon polyps, IBS; diarrheal-type not currently on treatment, GERD; on omeprazole, history of tubal ligation, history closed reduction of nasal fracture, muscle spasms; on as needed tizanidine 3 times daily and OA; with history of anterior cervical laminectomy plus Right ankle and knee surgery on nabumetone twice daily who presents to [facility] ER complaining of generalized weakness. Mrs. Sutherland reports her symptoms began approximately 1 hour prior to admission when she turned around to Dr. Serg when her legs gave out. She states caused her to fall to the floor but she did not hit her head or lose consciousness. She is not on any blood thinners at this time. She states it felt like someone pulled the rug out from under her. She states she was able to ambulate after the fall and she denies any focal neurologic deficits or significant injury from the fall other than mild Left-sided pelvic / hip pain. She denies associated fever, chills, nausea, vomiting, diarrhea, constipation, upper respiratory infection symptoms, shortness of breath, cough, abdominal pain, back pain, chest pain or shortness of breath. In the ER she was noted to have an initial troponin of 1,237 pg/mL followed by a second upwardly trending troponin of 2,182 pg milliliter consistent with non-ST elevation NH complicated by laboratory evidence of Lactic Acidosis of 4.6 mmol/L present on admission and Leukocytosis of 13.8 K present on admission with no signs of infection on UA, chest x-ray or physical examination. She was then admitted to the PCU for ongoing care for status expected to extend beyond 2 midnights. Hospital Course: 1. Non-STEMI status post JUAN DIEGO to proximal OM 2 and proximal LAD?63-year-old female presented to the hospital with weakness that caused her to fall to the floor. She is felt that her legs just gave out she denies any significant shortness of breath or chest pain but initial troponin was 1200 that did peak over 3000. Cardiology was consulted and recommended a heart cath which demonstrated 2 lesions that need to be intervened on. She did have a successful JUAN DIEGO to her OM2 and proximal LAD. She was started on aspirin and Plavix which she will continue for the next 12 months. She did have an echo prior to her heart catheter demonstrating EF of 60% with no diastolic dysfunction. Today on the day of discharge she is denying any chest pain or lightheadedness. Vital signs been stable and cardiology felt that she was stable for discharge. I discussed with her the plan for discharge and she expressed understanding of the risks and benefits of going home and would like to go home today. Will continue with aspirin and Plavix as well as Lipitor 40 mg p.o. nightly and Coreg 3.125 mg p.o. twice daily. He will need to follow-up with her PCP in 3 to 5 days as well as with cardiology as an outpatient. Also on admission she did have a leukocytosis with a lactic acidosis, CPK was unremarkable and this resolved on its own. She does have a history of polyclonal gammopathy which is likely causing her intermittent leukocytosis, no signs of infection during this admission. 2. Type 2 diabetes, anxiety, depression, GERD, polyclonal gammopathy are all chronic medical conditions which complicate her care. Her home medications were continued where appropriate Physical Exam Narrative General: Alert, Oriented x3, Cooperative, No apparent distress HEENT: Atraumatic, PERRLA, EOMI, Normocephalic Oral: Moist Mucosa Neck: Supple, No JVD Lungs: Diminished, Normal air movement, No rhonchi, No wheeze, No rales Cardiovascular: Regular rate, Regular Rhythm, Normal S1, Normal S2, No murmurs Abdomen: Soft, Non Tender, Non-Distended, No Hepato-splenomegaly Extremities: No edema, Capillary Refill Less than 3 Seconds Skin: No rashes, No breakdown Musculoskeletal: No Tenderness to Palpation of Joints or Extremities Neurological: No focal neurological deficits, Motor Exam 5/5 strength throughout, Sensory exam intact to light touch and pain Psych/Mental Status: Normal Affect, Appropriate Weight / BMI Weight Weight: 197 lb 12.074 oz Body Mass Index (BMI) 30.9 ABG / Lab / Microbiology Data 11/26/24 06:36 11/26/24 06:36 Laboratory: Laboratory Results - last 24 hr 11/25/24 17:12: POC Glucose 198 H 11/25/24 21:16: POC Glucose 205 H 11/26/24 06:36: WBC 10.5, RBC 4.74, Hgb 14.7, Hct 43.8, MCV 92.4, MCH 31.0, MCHC 33.6, RDW Std Deviation 45.6 H, RDW Coeff of Ned 13.4, Plt Count 277, MPV 10.1, Immature Gran % (Auto) 0.400, Neut % (Auto) 59.9, Lymph % (Auto) 25.4, [place] % (Auto) 12.0 H, Eos % (Auto) 1.5, Baso % (Auto) 0.8, Absolute Neuts (auto) 6.3, Absolute Lymphs (auto) 2.67, Nucleated RBC % 0, Sodium 139, Potassium 4.2, Chloride 110 H, Carbon Dioxide 25.0, Anion Gap 5, BUN 13, Creatinine 0.67, Estim Creat Clear Calc 101.39, Est GFR (MDRD) Af Amer 115, Est GFR (MDRD) Non-Af 95, BUN/Creatinine Ratio 19.4, Glucose 209 H, Calcium 9.4, Total Bilirubin 0.70, AST 23, ALT 21, Alkaline Phosphatase 109, Total Protein 6.9, Albumin 3.1 L, Globulin 3.8, Albumin/Globulin Ratio 0.8 L 11/26/24 08:44: POC Glucose 218 H 11/26/24 12:48: POC Glucose 221 H D/C Instructions Discharge Diet: Low fat / Low cholesterol and Carb Control Diet Call your doctor if you observe: Fever of 101 or Higher, Shortness of breath, Dizziness, Fainting spells, Swelling in the ankles, Chest pain and Increased palpitations (irregular heartbeat) DC O2, CPAP, BIPAP Needs Home O2 Discharge instructions: No Meaningful Use Info Meaningful Use Meaningful Use Diagnoses (Choose all that apply): None applicable Ischemic Stroke Statin Dosing Therapy Reference: STATIN DOSE THERAPY REFERENCE: * Patients > 75 years receive moderate or high dose statin therapy. * Patients 75 years or YOUNGER should receive HIGH intensity statin dose unless contraindicated. You will be required to document reason for non-treatment if statin daily dose does not meet guidelines. HIGH DOSE STATIN THERAPY DAILY Atorvastatin > than or = to 40 mg Rosuvastatin > than or = to 20 mg Amlodipine + Atorvastatin > than or = to 2.5/40 mg Ezetimibe + Simvastatin 10/80 mg Simvastatin 80mg Discharge Plan Admission Admit Date/Time: 11/23/24 00:18 Attending Provider: Bunny Lee Primary Care Provider: Leilani Brantley Consulting Providers: Onel Mcfarland; Meeta Porras; Shabnam Cam; Refugio Caldera; Marcos Lance; Dragan Hines; Mariusz Real; De Swain; Kale Welch; Alex Kirby; Cruz Joaquin NP; Belia Valenzuela; Robin Pena; David Aldrich Discharge Orders/Prescriptions Prescriptions: New atorvastatin 40 mg Tablet 40 mg PO QHS 30 Days Qty: 30 0RF clopidogrel 75 mg Tablet 75 mg PO DAILY 30 Days Qty: 30 0RF aspirin 81 mg Tablet,Delayed Release (Dr/Ec) 81 mg PO BREAKFAST 30 Days Qty: 30 0RF carvedilol 3.125 mg Tablet 3.125 mg PO BID 30 Days Qty: 60 0RF lisinopril 5 mg Tablet 5 mg PO DAILY 30 Days Qty: 30 0RF Continued leucovorin calcium 5 mg tablet 5 mg PO DAILY lorazepam 0.5 mg tablet 0.5 mg PO BID PRN (Reason: anxiety) Patient Comments: TAKE 1 TABLET BY MOUTH TWICE A DAY NEEDED FOR ANXIETY zolpidem 10 MG tablet 10 mg PO QHS gabapentin 600 mg tablet extended release 24 hr 600 mg PO TID ondansetron 4 mg tablet,disintegrating 4 mg PO Q8H PRN PRN (Reason: Nausea) Qty: 10 0RF glipizide 10 mg tablet extended release 24hr 20 mg PO DAILY cyclobenzaprine 10 mg tablet 10 - 30 mg PO DAILY PRN (Reason: muscle spasticity) methotrexate sodium 2.5 mg tablet 20 mg PO QWEEK folic acid 1 mg tablet 1 mg PO DAILY Novolin R FlexPen 100 unit/mL (3 mL) insulin pen 10 unit subcut TID tizanidine 4 mg tablet 4 mg PO TID PRN PRN (Reason: muscle spasm) venlafaxine 150 mg capsule,extended release 24hr 150 mg PO DAILY omeprazole 40 mg capsule,delayed release(DR/EC) 40 mg PO DAILY PRN (Reason: gastric reflux) venlafaxine 75 mg capsule,extended release 24hr 75 mg PO DAILY Patient Comments: TAKE 1 CAPSULE BY MOUTH EVERY DAY (WITH 150MG) Rx Instructions: (take with 150mg) Discontinued nabumetone 500 mg tablet 500 mg PO BID Referrals / Follow Up: Leilani Brantley DO [Primary Care Provider] - Within 1 Week Mariusz Real MD [Med Staff - Active Staff] - Within 1 Month Disposition Disposition (needs filled in before D/C Order can be placed): Home, Self Care Charges/Coding Visit Charges Inpatient E&M: 01857 Disch Hosp >30min
== END 2024-11-26 14:27 | disposition home or self-care (01) | DRG 322 ==
LOC: ED 22:42 → PCU 11-23 00:37
PROVIDERS: Admitting Provider Internal Medicine; Emergency Provider Surgery; PCP Family Medicine; Visit Provider Family Medicine
DX: I21.4 Non-ST elevation (NSTEMI) myocardial infarction (principal); E87.20 Acidosis, unspecified; E11.65 Type 2 diabetes mellitus with hyperglycemia; E66.9 Obesity, unspecified; E11.42 Type 2 diabetes mellitus with diabetic polyneuropathy; D72.828 Other elevated white blood cell count; M06.9 Rheumatoid arthritis, unspecified; F32.A Depression, unspecified; M19.90 Unspecified osteoarthritis, unspecified site; Z79.4 Long term (current) use of insulin; K58.9 Irritable bowel syndrome, unspecified; E78.5 Hyperlipidemia, unspecified; K21.9 Gastro-esophageal reflux disease without esophagitis; I25.10 Atherosclerotic heart disease of native coronary artery without angina pectoris; F41.9 Anxiety disorder, unspecified; W19.XXXA Unspecified fall, initial encounter; I25.84 Coronary atherosclerosis due to calcified coronary lesion; Z68.31 Body mass index [BMI] 31.0-31.9, adult; Z79.1 Long term (current) use of non-steroidal anti-inflammatories (NSAID); Z87.891 Personal history of nicotine dependence; Z79.84 Long term (current) use of oral hypoglycemic drugs; Z79.899 Other long term (current) drug therapy; Z79.02 Long term (current) use of antithrombotics/antiplatelets; Z79.631 Long term (current) use of antimetabolite agent; G47.00 Insomnia, unspecified; R29.898 Other symptoms and signs involving the musculoskeletal system; Z87.39 Personal history of other diseases of the musculoskeletal system and connective tissue; Z86.0100 Personal history of colon polyps, unspecified
CPT/HCPCS: 36415; 71045; 72170; 80048; 80053; 80061; 81001; 82550; 82962; 83036; 83605; 83735; 84443; 84484; 85025; 85027; 85347; 85379; 85610; 85730; 90656; 92928; 93005; 93306; 93454; 99152; 99153; 99285; Q9957; Q9967; A4216; C1725; C1769; C1874; C1887; C1894; C8929; C9600

== ENCOUNTER → 2025-01-24 | Outpatient (CLI) | payer MEDICARE, SELFPAY ==
--- NOTE | 2025-01-24 14:10 | PCM.CR.HP2 ---
CR - History & Physical General Arrival date:: 01/24/25 Arrival time:: 14:10 Date of Referral:: 11/25/24 Date of CR Evaluation:: 01/24/25 Referring Physician: Dr. Cam Primary Diagnosis: PCI w/stenting History of Present Cardiac Event Onset Date PTCA or coronary stenting:: Yes (onset 11/25/24) Vessel: OM2, LAD Medications Ambulatory Orders ?Medication ?Instructions ?Recorded zolpidem 10 mg tablet 10 mg PO QHS insomnia 06/14/17 gabapentin 600 mg tablet,extended 600 mg PO TID neuropathy 05/24/19 release 24 hr leucovorin calcium 5 mg tablet 5 mg PO DAILY supplement 06/17/22 lorazepam 0.5 mg tablet 0.5 mg PO BID PRN anxiety 06/17/22 ondansetron 4 mg disintegrating 4 mg PO Q8H PRN PRN Nausea #10 tabs 02/08/23 tablet cyclobenzaprine 10 mg tablet 10 - 30 mg PO DAILY PRN muscle 11/22/24 spasticity folic acid 1 mg tablet 1 mg PO DAILY supplement 11/22/24 glipizide 10 mg tablet, extended 20 mg PO DAILY DM 11/22/24 release 24 hr insulin regular human 100 unit/mL 10 unit subcut TID diabetes 11/22/24 (3 mL) subcutaneous pen (Novolin R FlexPen) methotrexate sodium 2.5 mg tablet 20 mg PO QWEEK RA 11/22/24 omeprazole 40 mg capsule,delayed 40 mg PO DAILY PRN gastric reflux 11/22/24 release tizanidine 4 mg tablet 4 mg PO TID PRN PRN muscle spasm 11/22/24 venlafaxine 150 mg 150 mg PO DAILY depression; anxiety 11/22/24 capsule,extended release 24 hr venlafaxine 75 mg capsule,extended 75 mg PO DAILY depression 11/26/24 release 24 hr aspirin 81 mg tablet,delayed 81 mg PO BREAKFAST #90 tabs 12/03/24 release atorvastatin 40 mg tablet 40 mg PO QHS #90 tabs 01/01/25 carvedilol 3.125 mg tablet 3.125 mg PO BID #180 tabs 01/01/25 clopidogrel 75 mg tablet 75 mg PO DAILY #90 tabs 01/01/25 lisinopril 5 mg tablet 5 mg PO DAILY #90 tabs 01/02/25 Allergies Allergies No Known Allergies Allergy (Verified 12/03/24 14:15) Sleep Disorder Evaluation Hx of Sleep Apnea: Yes Do you snore loudly (louder than talking or can be heard through closed doors)?: No Has anyone observed you stop breathing during sleep?: No History of Hypertension (for STOP score): Yes Advanced Directives Advanced Directives Do you have a Healthcare Power of Crop Grain Or Livestock Farm Manager?: No Living Will: No Advance Directives Information Provided: No Advance Directives on File: No DNR Order?:: No Past Medical History Covid-19 Screening Physicial Symptoms Other Clinical Concerns Exposure Risk Pertinent Comorbidities Has a serious heart condition:: Yes Diabetic:: Yes Past Medical Illness Past Medical History (Updated 12/03/24 @ 14:26 by Belia BAUGH, PA) Arteriosclerotic cardiovascular disease (ASCVD) (11/25/24) I25.10 Leukocytosis D72.829 Polyclonal gammopathy D89.0 Reactive IBS (irritable bowel syndrome) K58.9 abscess right facial cheek abscess right wrist Carpal tunnel syndrome G56.00 High cholesterol E78.00 Diabetes E11.9 Depression F32.9 Anxiety disorder F41.9 Past Surgical History Past Surgical History (Updated 12/03/24 @ 12:50 by Belia BAUGH, PA) Stented coronary artery (11/25/24) Z95.5 2.5 X 18 mm Neto [place] JUAN DIEGO to OM2 and 3.5 X 15 mm [place]o [place] JUAN DIEGO to Prox LAD 11/25/2024 history closed reduction nasal fracture History of tubal ligation Z98.51 history right ankle surgery History of right knee surgery Z98.890 history anterior cervical laminectomy Family History Summary Family History Brother Colon cancer Father Hypertension Mother Hypertension Diabetes Social History Smoking History Smoking Status: Former smoker Years Smokin (stopped 2005) Packs Smoked per Day: 1.5 Alcohol Use Alcohol Usage: No Substance Abuse Hx Substance Use: No Occupation Occupation (List type of work in comments):: Retired Social Environment Status Marital Status: Current Living Arrangements Living Environment:: Spouse Children How many children do you have?: 2 Do any of your children live nearby?: Yes Safety Do you feel safe in your surroundings?: Yes Assistance Do you need any assistance at home?: no Review of Systems Review of Systems Hints Review of Present Symptoms: Reports Fatigue, Appetite - Normal and Appetite - Special Diet; Denies Shortness of Breath at Rest, Shortness of Breath with Exertion, PVD, Operative Discomfort, Angina, Wound Healing, Dizziness/Lightheadedness, Heart Arrhythmia/Irregularities, Sleep - Normal or Sexual Changes Pain Is Patient Pain Free?: No Pain Location: other (hands, neck) Pain Level: 04/17 Risk Factor Assessment Chief Complaint Chief Complaint: PCI w/stenting Vital Signs Pulse Ox: 95 Blood Pressure: 100/50 Pulse Pulse Rate: 61 Pulse Rhythm: Regular Hypertension How long have you been treated?: 2 months Blood Pressure Sitting - Right Arm: 100/50 Stress Stress: Home/Family (cares for 90 yr old parent) Diabetes Diabetic History: Type II Nutrition Referral for Diabetes: Yes Obesity Height: 5 ft 7 in Weight:: 196 lb Weight in Pounds: 196.0 lbs Body Mass Index (BMI): 30.7 Physical Inactivity Physical Inactivity: None Risk Stratification Risk Guidelines: Moderate Risk: Risk Factor for Smoking and Risk Factor for Sedentary Lifestyle and Highest Risk: Risk Factor for Dyslipidemia, Risk Factor for Diabetes, Risk Factor for Obesity, Risk Factor for Hypertension and Risk Factor for Depression For Smoking Smoking Risk Guidelines For Dyslipidemia Dyslipidemia Risk Guidelines For Diabetes Mellitus Diabetes Risk Guidelines For Obesity/Overweight Obesity/Overweight Risk Guidelines For Hypertension Hypertension Risk Guidelines For Sedentary Lifestyle Sedentary Lifestyle Risk Guidelines For Depression Depression Risk Guidelines Family History Family History Brother Colon cancer Father Hypertension Mother Hypertension Diabetes Motivation Motivation to Participate On a scale of 1 to 10, how prepared are you to commit to attending program?: 10 What do you see as barriers to successfully being able to complete the program?: nothing What do you see as the benefits of succesfully completing the program? In other words, what do you hope to get out of participating in the program?: more energy, healthier, weight loss Are there issues you are dealing with that will interfere with completing the program?: no Do you have a spouse or signficant other, family or friends who will help support you to complete the program?: yes
--- NOTE | 2025-01-24 14:16 | CR.ITP_ITS ---
Diagnosis General Information Admitting Diagnosis: PCi w/stenting Personal Learning Style:: Audio/Visual Barriers to Learning: No Barriers Stage of change r/t lifestyle modifications:: Contemplation Gave educational material for:: Treating Heart Disease, How The Heart Works, What it means to have Heart Disease, How Coronary Artery Disease is Diagnosed, Heart Procedures, What Heart Medications Do, Risk Factors & Modifications, Living an Active Life, Nutrition, Emotions & Heart Disease, Stress Management & Relaxation and Sleep Disorders & Heart Disease Education/Goals Cardiac Rehabilitation Goals Personal Goals: Initial Assessment: Improve management of stress and emotions, Improve energy level, Participate in home exercise program, Get back to work, or to resume activities faster, Improve knowledge of cardiac disease, Improve muscle strength and endurance, Improve diet and eating habits (eat healthier) and Control risk factors (learn risk factor modification) Scale for measuring improvement of personal goals Diagnosis & Disease Process Outcomes/Goals: Pt IDs own risk factors & lifestyle modifications by Session 10, Verbalizes symptoms of angina & response by session 3., Pt independently manages and Other Additional Outcomes/Goals: Plan/Interventions: Assist Pt to ID & engage in lifestyle modification to reduce CVD risk, Instruct on individual risk factors, Review symptoms of angina & emergency actions, Review secondary diagnosis & identify educational needs. and Other see comment 30 day Reassessments:: Not Met 30 day Reassessments:: Not Met 30 day Reassessments:: Not Met 30 day Reassessments:: Not Met Final Reassessments:: Not Met Safety Referral to Physical Therapy: No Referral to [facility] Case Management: No Fall Risk Assessed:: Yes Assistive Devices:: None Exercise - Initial Assessment Visit Date of Eval: 01/24/25 (initial eval ) Mets: Pre-: >3 METS for 30 minutes by discharge, >5 METS for 30 minutes by discharge, >7 METS for 30 minutes by discharge and Unable to meet goal due to: (see comment below) Physician Prescribed Exercise Modalities: Treadmill, Rower, Schwyesenia Mohandyne AD-7, SciFit Stepper, SciFit Pro- II Ergometer and SciFit Lateral Button Cutting Machine Operator Frequency: 3x/week for 12 weeks [36 sessions] Intensity: 60-80% of age predicted maximum heart rate reserve Duration: 30 - 45 minutes Current METSs:: 3 Target Heart Rate:: 95-119 Resting Blood Pressure: 100/50 EKG Type: SB Outcomes & Goals Goals:: Verbalizes understanding of THR, RPE & goal METS by session 6, Documents in home exercise log/reports 30 min aerobic 5 day/wk by DC, Demonstrates accurate pulse taking by DC and Other additional outcome/goals: see below Intervention & Plan Exercise Program Goals: Instruct on personal THR & RPE, Instruct on MET level & personal MET goal, Show patient to take own pulse /validate performance until accurate, Instruct on home exercise and Other additional plan/int Physical Activity Home Exercise Physical Activity - Home Exercise: Safe Exercise, Warm-up, Self-monitoring, Cool-Down, Home Exercise > 30 min Daily and Sitting Time <3 hours/daily Outcomes & Goals Outcomes/Goals: Demonstrates correct Warm-up/exercise Cool-Down (S3) if = 2.5 METs, Verbalizes symptoms of exercise intolerance by Session 3 (S3), Demonstrate safe equipment use (S3) & follows exercise prescrition (6) and Other: See below Intervention & Plan Plan/Intervention: Instruct warm-up & cool-down if exercising at > 2 METs, Instruct on symptoms of exercise intolerance & actions to take, Instruct & monitor on saf, Assess intial functional capacity & safety risk and Other See below Nutrition - Initial Assessment Program Goals Nutrition Program Goals Patient has diagnosis of Hyperlipidemia (ICD E78)?: Yes Visit Date of Eval: 01/24/25 (initial eval ) Cholesterol/Lipids (Other Core Measures) Determine presence & major risk factors that modify LDL goal: Cigarette smoking, Hypertension or hypertensive medication, Low HDL cholesterol <40 mg/dL*, Family history of premature CHD in Male < 55 years: female <65 yearsFa and Age men > 45 years; women >/= 55 years Outcomes/Goals: Pt IDs own risk factors & lifestyle modifications by Session 10, Verbalizes symptoms of angina & response by session 3., Pt independently manages and Other Additional Outcomes/Goals: Intervention/Plan: Advocate for lipid panel cholesterol medication if applicable, Instruct on personal lipid levels & lipid goals/NCEP guidelines, Instruct on cholesterol and Other additional plan/int Diabetes (Other Core Measures) Diabetes Type: Diagnosis Type II ICD-10 E11 Insulin dependent injection/pump?: Yes Non-Insulin Dependent?: Yes Do you monitor your blood sugar at home?: Yes Referral to Diabetic Clinic:: Yes Outcomes/Goals:: Able to state symptoms of, Able to state, Able to state and Other additional Intervention/Plan:: Instruct on, Refer to, Instruct on and Other Weight Mgt (Other Care) Height: 5 ft 7 in Weight:: 196 lb BMI: 30.7 Diagnosis Overweight/Obesity BMI> 30% ICD-10 E66: Yes Diagnosis High BMI/Morbid Obesity BMI> 35% ICD-10 Z68: Yes Outcomes/Goals: Pt sets, maintains & shows weight loss goal & trend during rehab and Other additional outcomes/goals Intervention/Plan: Instruct on ideal BMI & set weight loss goal w/patient, Tanner elizondo pt to ID & incorporate diet changes for weight loss by S9, Refer to Structured Weight Loss program as appropriate, Encourage goal of using 250- 300dcal per session for weight loss and Other additional plan/interventions Healthy Eating Habits Will attend diet classes:: Yes Outcomes/Goals:: Consume diet rich in vegs,fruits,whole grain/high fiber,fish,lean meat, Limit sat/trans fats,cholesterol & added salts & sugars and Other additional outcome/goals: Intervention/Plan:: Assess current eating habits and Other Additional plan/interventions Education Gave educational materials for:: Signs & symptoms of hypoglycemia, Signs & symptoms of hyperglycemia, Relate diabetes to coronary artery disease and Healthy eating Core - Initial Assessment Visit Date of Eval: 01/24/25 (initial eval ) Medication Compliance Preventative Medication(s):: Aspirin, JOVI inhibitor, Clopidogrel/P2Y12 inhibit, Statin/lipid and Beta charla H/O mental health issues: depression, anxiety, or addiction?: Yes Doesn?t believe in the benefits of treatment?: No Believes medications are unnecessary or harmful?: No Has a concern about medication side effects?: No Expresses concern over the cost of medications?: No Outcomes/Goals: Verbalizes medications,desired effect & common side effects @ DC, Pt self-reports following medication regimen, Keeps card in wallet w/medications listed by DC and Other additional outcome/goals: Interventions/plans: Instruct on medication effects & side effects, Review medication list w/patient every two weeks, Instruct importance of taking meds as ordered & assist problem solving and Other additional Tobacco Use Tobacco Use: Non-smoker How long ago did you quit using tobacco products?: Greater than or equal to 6 months ago Years Smokin (stopped in 2005) Hypertension Hypertension Diagnosis:: Hypertension ICD-10 I10 Resting Blood Pressure:: 100/50 [place] [employer] Hypertension Guidelines Outcomes/Goals: Able to verbalize/achieve optimal blood pressure <130/80, Incorporates diet changes & exercise for blood pressure control by DC and Other additional outcomes/goals Interventions/plan: Instruct on optimal blood pressure, hypertension & medications, Instruct on effects of sodium, alcohol, stress, exercise &hypertension and Other additional plan/interventions Tobacco Cessation Referral Smoking Cessation Referral:: No Individual Education/Counseling:: No Education Schedule Given:: Yes Psychosocial - Initial Assess VIsit Date of Eval: 01/24/25 (initial eval ) History of previous Mental disease:: Yes History of Emotional Disorders: Anxious and Depression Self-reported stressors: Family Target Goals Target Goals Psychosocial Test Tool Used:: NicOx QOL Cardiac and PHQ-9 Questionnaire phq-9 Severity See PHQ-9 Score: 5 Referral to Behavioral Health PS - Interventions: Yes: Attend Stress Management Classes Outcomes/Goals: See list Psychosocial Outcomes/Goals:: ID's personal stressors & 2 strategies to manage stress by discharge and Other Additional outcome/goals: Intervention/Plan: See List Interventions/Plan:: Assess stressors,coping strategies & signs of derpression on admission, Instruct/assist pt to develop coping & personal stress Mgt strategies, Refer to Behavioral Health if appropriate, Refer to Physician if appropriate, Instruct patient to recognize signs & symptoms of depression, Instruct patient to recog and Other additional plan/intervention Patient Health Questionnaire PHQ-9 Screening Initial Assessment: 1. Little interest or pleasure in doing things: Several days 2. Feeling down, depressed, or hopeless: Several days 3. Trouble falling or staying asleep, or sleeping too much: More than half the days 4. Feeling tired or having little energy: Several days 5. Poor appetite or overeating: Not at all 6. Feeling bad about yourself -- or that you are a failure or have let yourself or your family down: Not at all 7. Trouble concentrating on things, such as reading the newspaper or watching television: Not at all 8. Moving or speaking so slowly that other people could have noticed. Or the opposite - being so fidgety or restless that you have been moving around a lot more than usual: Not at all 9. Thoughts that you would be better off , or of hurting yourself in some way: Not at all How difficult have these problems made it for you to do your work, take care of things at home, or get along with other people?: Not difficult at all Total Score: 5 EDMUNDO-Q SV Test Statements CAD is a disease of the arteries in the heart: False Examples of risk factors for heart disease: True Angina is chest pain or discomfort: I Don't Know The benefits of resistance training include: True Eating more meat and dairy products: False Anti-platelet medications such as aspirin are important: True The only effective way to manage stress: False An exercise warm-up slowly increases heart rate: I Don't Know Prepared, processed foods usually have high sodium: True Depression is common after a heart attack: I Don't Know The statin medications lower cholesterol: True To control blood pressure, lower the amount of sodium: True If someone gets chest discomfort during walking: False Transfats are partially hydrogenated vegetable oils: True Sleep apnea that is not treated increases the risk: I Don't Know To control cholesterol, one should become a vegetarian: False Someone knows if he/she is exercising at the right level: I Don't Know Diabetes cannot be prevented with exercise & health eating: False Stress is a large risk for heart attack: True A diet that can help lower blood pressure is rich in: True Total Score Total Correct Responses: 15 Self-Efficacy 6-Item Scale Initial Assessment: We would like to know how confident you are in doing certain activities. Please select your confidence level for: Fatigue Select Number: 5 Physical Discomfort or Pain Select Number: 5 Emotional Distress Select Number: 7 Other Symptoms or Health Problems Select Number: 5 Different Tasks and Activities Select Number: 5 Medication Select Number: 8 Total Score:: 5 Nutrition Survey Nutrition Survey Instructions Scoring Instructions Nutrition Survey Initial: Have you lost >10 lbs over the past 2 months without trying?: No Are you following a special diet at home for diabetes, low fat, or low salt?: Yes Are you interested in meeting with a dietitian for help understanding your diet?: Yes Do you eat less than 3 meals a day?: No Do you eat fatty meats (ramirez, sausage, ribs, etc), fried foods, desserts, large amounts of salad dressings, margarine, butter, or cheese most days?: Yes Do you have food allergies? [Enter types in comment field]: No Do you eat in restaurants more than 3 times a week?: No Do you season food with salt, seasoning salt, or garlic salt?: No Do you used canned, boxed, frozen meals, or soups, seasoning packets?: Yes Total Score:: 4 Exercise - 30-day Assessment Physician Prescribed Exercise Modalities: Treadmill, Rower, Schwinn Airdyne AD-7, SciFit Stepper, SciFit Pro- II Ergometer and SciFit Lateral [place] Exercise - 60-day Assessment Physician Prescribed Exercise Modalities: Treadmill, Rower, Schwinn Airdyne AD-7, SciFit Stepper, SciFit Pro- II Ergometer and SciFit Lateral [place] Exercise - 90-day Assessment Physician Prescribed Exercise Modalities: Treadmill, Rower, Schwinn Airdyne AD-7, SciFit Stepper, SciFit Pro- II Ergometer and SciFit Lateral [place] Exercise - Final/Discharge Physician Prescribed Exercise Modalities: Treadmill, Rower, Schwinn Airdyne AD-7, SciFit Stepper, SciFit Pro- II Ergometer and SciFit Lateral Button Cutting Machine Operator Frequency: 3x/week for 12 weeks [36 sessions] Intensity: 60-80% of age predicted maximum heart rate reserve Current METSs:: 3 Target Heart Rate:: 95-119 Nutrition - 30-Day Assessment Weight Mgt (Other Care) Height: 5 ft 7 in Weight:: 196 lb BMI: 30.7 Nutrition - 60-Day Assessment Weight Mgt (Other Care) Height: 5 ft 7 in Weight:: 196 lb BMI: 30.7 Core - 30-Day Assessment Tobacco Use Years Smokin (stopped in 2005) Core - Final Assessment Hypertension Resting Blood Pressure:: 100/50 [place] [employer] Hypertension Guidelines Core - 60-Day Assessment Hypertension Resting Blood Pressure:: 100/50 [place] [employer] Hypertension Guidelines Psychosocial - 30-Day Assess Target Goals Target Goals Referral to Behavioral Health PS - Interventions: Yes: Attend Stress Management Classes Psychosocial - 60-Day Assess Target Goals Target Goals Referral to Behavioral Health PS - Interventions: Yes: Attend Stress Management Classes Psychosocial - 90-Day Assess Target Goals Target Goals Referral to Behavioral Health PS - Interventions: Yes: Attend Stress Management Classes Psychosocial - Final Assessmen Target Goals Target Goals Psychosocial Test phq-9 Severity See PHQ-9 Score: 5 Referral to Behavioral Health PS - Interventions: Yes: Attend Stress Management Classes Nutrition - 90-Day Assessment Weight Mgt (Other Care) Height: 5 ft 7 in Weight:: 196 lb BMI: 30.7 Nutrition - Final Assessment Program Goals Patient has diagnosis of Hyperlipidemia (ICD E78)?: Yes Weight Mgt (Other Care) Height: 5 ft 7 in Weight:: 196 lb BMI: 30.7
[2025-01-24 14:29] VITALS: BP 100/50; PULSE 61; O2SAT 95; BMI 30.7
[2025-01-24 15:05] VITALS: BP 100/50; BMI 30.7
== END | disposition home or self-care (01) ==
PROVIDERS: PCP Family Medicine; Referring Provider Internal Medicine Cardiovascular Disease; Visit Provider Internal Medicine Cardiovascular Disease
DX: I25.10 Atherosclerotic heart disease of native coronary artery without angina pectoris (principal); E11.9 Type 2 diabetes mellitus without complications; Z79.4 Long term (current) use of insulin; I10 Essential (primary) hypertension; F32.9 Major depressive disorder, single episode, unspecified; F41.9 Anxiety disorder, unspecified; E66.9 Obesity, unspecified; E78.00 Pure hypercholesterolemia, unspecified; G47.30 Sleep apnea, unspecified; Z95.5 Presence of coronary angioplasty implant and graft; Z68.30 Body mass index [BMI] 30.0-30.9, adult; Z79.02 Long term (current) use of antithrombotics/antiplatelets; Z79.82 Long term (current) use of aspirin; Z79.84 Long term (current) use of oral hypoglycemic drugs; Z79.899 Other long term (current) drug therapy; Z87.891 Personal history of nicotine dependence

== ENCOUNTER 2025-02-05 14:15 | Outpatient (RCR) | payer MEDICARE, SELFPAY ==
[2025-01-24 15:05] VITALS: BMI 30.7
== END 2025-02-05 23:59 ==
LOC: CR 14:15
PROVIDERS: PCP Family Medicine; Referring Provider Internal Medicine Cardiovascular Disease; Visit Provider Internal Medicine Cardiovascular Disease
DX: I21.4 Non-ST elevation (NSTEMI) myocardial infarction (principal); Z95.5 Presence of coronary angioplasty implant and graft
CPT/HCPCS: 93798

== ENCOUNTER 2025-03-05 14:15 | Outpatient (RCR) | payer MEDICARE, SELFPAY ==
[2025-01-24 15:05] VITALS: BMI 30.7
--- NOTE | 2025-02-20 10:28 | PCM.CR.ITP ---
Exercise - Initial Assessment Visit Session #:: 11 Physician Prescribed Exercise Modalities: Treadmill, Rower, Schwinn Airdyne AD-7, SciFit Stepper, SciFit Pro-II Ergometer and SciFit Lateral [employer] Professor Nutrition - Initial Assessment Weight Mgt (Other Care) Height: 5 ft 7 in Weight:: 201 lb BMI: 31.4 BMI (Report if calculated above): 31 Psychosocial - Initial Assess Target Goals Target Goals Referral to Behavioral Health PS - Interventions: Yes: Attend Stress Management Classes and No: Referral to Behavioral Health if PHQ-9 score >9:, No: Referral to [facility] and No: Referral to Physician if PHQ-9 if score is 5-9: (currently being managed by a physician) Patient Health Questionnaire PHQ-9 Screening 30-Day Re-eval Assessment: 1. Little interest or pleasure in doing things: Several days 2. Feeling down, depressed, or hopeless: Several days 3. Trouble falling or staying asleep, or sleeping too much: More than half the days 4. Feeling tired or having little energy: Several days 5. Poor appetite or overeating: Not at all 6. Feeling bad about yourself -- or that you are a failure or have let yourself or your family down: Not at all 7. Trouble concentrating on things, such as reading the newspaper or watching television: Not at all 8. Moving or speaking so slowly that other people could have noticed. Or the opposite - being so fidgety or restless that you have been moving around a lot more than usual: Not at all 9. Thoughts that you would be better off , or of hurting yourself in some way: Not at all How difficult have these problems made it for you to do your work, take care of things at home, or get along with other people?: Not difficult at all Total Score: 5 Self-Efficacy 6-Item Scale 30-Day Re-eval Assessment: We would like to know how confident you are in doing certain activities. Please select your confidence level for: Fatigue Select Number: 5 Physical Discomfort or Pain Select Number: 5 Emotional Distress Select Number: 7 (health problems) Other Symptoms or Health Problems Select Number: 5 Different Tasks and Activities Select Number: 5 Medication Select Number: 8 Total Score:: 5 Nutrition Survey Nutrition Survey Instructions Scoring Instructions Exercise - 30-day Assessment Visit Date of Eval: 02/20/25 Session #:: 11 Physician Prescribed Exercise Modalities: Treadmill, Rower, Schwinn Airdyne AD-7, SciFit Stepper, SciFit Pro-II Ergometer and SciFit Lateral [employer] Professor Frequency: 3x/week for 12 weeks [36 sessions] Intensity: 60-80% of age predicted maximum heart rate reserve Duration: 30 - 45 minutes METs - Progression 0.5-1.0 weekly:: 0.5-1.0 Current METSs:: 4.2 Target Heart Rate:: 95-119 Target RPE 12-16:: 12-16 Current RPE:: 12 Maximum Excercise HR:: 100 Resting Blood Pressure: 100/60 Maximum Exercise Blood Pressure: 116/74 EKG Type: NSR to ST with rare PAC Current Physical Activity or Exercising minutes: 31 Outcomes & Goals Goals:: Verbalizes understanding of THR, RPE & goal METS by session 6, Documents in home exercise log/reports 30 min aerobic 5 day/wk by DC and Demonstrates accurate pulse taking by DC Intervention & Plan Exercise Program Goals: Instruct on personal THR & RPE, Instruct on MET level & personal MET goal, Show patient to take own pulse /validate performance until accurate and Instruct on home exercise 30-day Reassessments 30 day Reassessments:: Progressing Reassessment Notes & Comments:: PT able to verbalize and accurately use RPE scale Physical Activity Home Exercise Physical Activity - Home Exercise: Safe Exercise, Warm-up, Self-monitoring, Cool-Down, Home Exercise > 30 min Daily and Sitting Time <3 hours/daily Outcomes & Goals Outcomes/Goals: Demonstrates correct Warm-up/exercise Cool-Down (S3) if = 2.5 METs, Verbalizes symptoms of exercise intolerance by Session 3 (S3) and Demonstrate safe equipment use (S3) & follows exercise prescrition (6) Intervention & Plan Plan/Intervention: Instruct warm-up & cool-down if exercising at > 2 METs, Instruct on symptoms of exercise intolerance & actions to take, Instruct & monitor on saf and Assess intial functional capacity & safety risk 30-day Reassessments 30 day Reassessments:: Progressing Reassessment Notes & Comments:: PT correctly warms up and cools down with minimal encouragement, pt able to verbalize signs and symptoms of exercise intolerance Exercise - 60-day Assessment Physician Prescribed Exercise Modalities: Treadmill, Rower, Schwinn Airdyne AD-7, SciFit Stepper, SciFit Pro-II Ergometer and SciFit Lateral [employer] Professor Exercise - 90-day Assessment Physician Prescribed Exercise Modalities: Treadmill, Rower, Schwinn Airdyne AD-7, SciFit Stepper, SciFit Pro-II Ergometer and SciFit Lateral [employer] Professor Exercise - Final/Discharge Physician Prescribed Exercise Modalities: Treadmill, Rower, Schwinn Airdyne AD-7, SciFit Stepper, SciFit Pro-II Ergometer and SciFit Lateral [employer] Professor Nutrition - 30-Day Assessment Program Goals Nutrition Program Goals Patient has diagnosis of Hyperlipidemia (ICD E78)?: Yes Visit Date of Eval: 02/20/25 Session #:: 11 Cholesterol/Lipids (Other Core Measures) Triglycerides (mg/dL): 185 Total Cholesterol (mg/dL): 192 LDL Cholesterol (mg/dL): 105 HDL Cholesterol (mg/dL): 50 Lipid Medication: atorvastatin 40mg QHS Determine presence & major risk factors that modify LDL goal: Hypertension or hypertensive medication and Age men > 45 years; women >/= 55 years Outcomes/Goals: Pt IDs own risk factors & lifestyle modifications by Session 10, Verbalizes symptoms of angina & response by session 3. and Pt independently manages Intervention/Plan: Advocate for lipid panel cholesterol medication if applicable, Instruct on personal lipid levels & lipid goals/NCEP guidelines and Instruct on cholesterol Referral to dietitian:: Yes 30-day Reassessments:: Progressing Reassessment Notes & Comments:: pt taking medications as prescribed, pt attending diet classes Diabetes (Other Core Measures) Diabetes Type: Diagnosis Type II ICD-10 E11 Insulin dependent injection/pump?: Yes Non-Insulin Dependent?: Yes Do you monitor your blood sugar at home?: Yes Referral to Diabetic Clinic:: Yes Outcomes/Goals:: Able to state symptoms of (hypo/hyperglycemia) Intervention/Plan:: Instruct on (healthy eating habits, monitoring when having spikes in blood sugars and what precipitates it) 30-day Reassessments:: Progressing Reassessment Notes & Comments:: pt with electronic BS monitor, pt able to state symptoms of hyper/hypoglycemia, pt attending dietary classes and meeting with nutrition for 1:1 counseling Weight Mgt (Other Care) Height: 5 ft 7 in Weight:: 201 lb BMI: 31.4 BMI (Report if calculated above): 31 Diagnosis Overweight/Obesity BMI> 30% ICD-10 E66: Yes Diagnosis High BMI/Morbid Obesity BMI> 35% ICD-10 Z68: No Outcomes/Goals: Pt sets, maintains & shows weight loss goal & trend during rehab Intervention/Plan: Instruct on ideal BMI & set weight loss goal w/patient, Assist pt to ID & incorporate diet changes for weight loss by S9, Refer to Structured Weight Loss program as appropriate and Encourage goal of using 250-300dcal per session for weight loss 30 day Reassessments:: Progressing Reassessment Notes & Comments:: Pt attending dietary classes, pt increasing exercise regimen, pt can state ideal BMI and weight loss goals Healthy Eating Habits Will attend diet classes:: Yes Outcomes/Goals:: Consume diet rich in vegs,fruits,whole grain/high fiber,fish,lean meat and Limit sat/trans fats,cholesterol & added salts & sugars Intervention/Plan:: Assess current eating habits 30-day Reassessments:: Progressing Reassessment Notes & Comments:: Pt attending diet classes, pt met with nutrition for 1:1 consultation Education Gave educational materials for:: Signs & symptoms of hypoglycemia, Signs & symptoms of hyperglycemia, Relate diabetes to coronary artery disease and Healthy eating Nutrition - 60-Day Assessment Weight Mgt (Other Care) Height: 5 ft 7 in Weight:: 201 lb BMI: 31.4 BMI (Report if calculated above): 31 Core - 30-Day Assessment Visit Date of Eval: 02/20/25 Session #:: 11 Medication Compliance Preventative Medication(s):: Aspirin, JOVI inhibitor, Clopidogrel/P2Y12 inhibit, Statin/lipid and Beta charla H/O mental health issues: depression, anxiety, or addiction?: Yes Doesn?t believe in the benefits of treatment?: No Believes medications are unnecessary or harmful?: No Has a concern about medication side effects?: No Expresses concern over the cost of medications?: No Outcomes/Goals: Verbalizes medications,desired effect & common side effects @ DC, Pt self-reports following medication regimen and Keeps card in wallet w/medications listed by DC Interventions/plans: Instruct on medication effects & side effects, Review medication list w/patient every two weeks and Instruct importance of taking meds as ordered & assist problem solving 30-day Reassessments:: Progressing Reassessment Notes & Comments:: Pt taking all medications as prescribed, pt able to assist in problem solving Tobacco Use Tobacco Use: Non-smoker Hypertension Hypertension Diagnosis:: Hypertension ICD-10 I10 Resting Blood Pressure:: 100/60 [place] [employer] Hypertension Guidelines Peak Exercise Blood Pressure:: 116/74 Outcomes/Goals: Able to verbalize/achieve optimal blood pressure <130/80 and Incorporates diet changes & exercise for blood pressure control by DC Interventions/plan: Instruct on optimal blood pressure, hypertension & medications and Instruct on effects of sodium, alcohol, stress, exercise &hypertension 30 day Reassessments:: Progressing Reassessment Notes & Comments:: pt taking BP medications as prescribed and maintaining optimal BP Psychosocial - 30-Day Assess VIsit Date of Eval: 02/20/25 Session #:: 11 History of previous Mental disease:: Yes History of Emotional Disorders: Anxious and Depression Self-reported stressors Other/Comments:: Family Target Goals Target Goals Psychosocial Test Tool Used:: PHQ-9 Questionnaire phq-9 Severity See PHQ-9 Score: 5 Referral to Behavioral Health PS - Interventions: Yes: Attend Stress Management Classes and No: Referral to Behavioral Health if PHQ-9 score >9:, No: Referral to [facility] and No: Referral to Physician if PHQ-9 if score is 5-9: (currently being managed by a physician) Outcomes/Goals: See list Psychosocial Outcomes/Goals:: ID's personal stressors & 2 strategies to manage stress by discharge Intervention/Plan: See List Interventions/Plan:: Assess stressors,coping strategies & signs of derpression on admission, Instruct/assist pt to develop coping & personal stress Mgt strategies, Refer to Behavioral Health if appropriate, Refer to Physician if appropriate and Instruct patient to recognize signs & symptoms of depression 30-day Reassessments: 30 day Reassessments:: Progressing Reassessment Notes & Comments:: Pt able to verbalize signs of depression and able to state stressors and coping strategies Psychosocial - 60-Day Assess Target Goals Target Goals Referral to Behavioral Health PS - Interventions: Yes: Attend Stress Management Classes and No: Referral to Behavioral Health if PHQ-9 score >9:, No: Referral to [facility] and No: Referral to Physician if PHQ-9 if score is 5-9: (currently being managed by a physician) Outcomes/Goals: See list Psychosocial Outcomes/Goals:: ID's personal stressors & 2 strategies to manage stress by discharge Psychosocial - 90-Day Assess Target Goals Target Goals Referral to Behavioral Health PS - Interventions: Yes: Attend Stress Management Classes and No: Referral to Behavioral Health if PHQ-9 score >9:, No: Referral to [facility] and No: Referral to Physician if PHQ-9 if score is 5-9: (currently being managed by a physician) Psychosocial - Final Assessmen Target Goals Target Goals Referral to Behavioral Health PS - Interventions: Yes: Attend Stress Management Classes and No: Referral to Behavioral Health if PHQ-9 score >9:, No: Referral to [facility] and No: Referral to Physician if PHQ-9 if score is 5-9: (currently being managed by a physician) Nutrition - 90-Day Assessment Weight Mgt (Other Care) Height: 5 ft 7 in Weight:: 201 lb BMI: 31.4 BMI (Report if calculated above): 31 Nutrition - Final Assessment Weight Mgt (Other Care) Height: 5 ft 7 in Weight:: 201 lb BMI: 31.4 BMI (Report if calculated above): 31
[2025-02-20 10:32] VITALS: BP 100/60
[2025-02-20 10:46] VITALS: BP 100/60; BMI 31.0; BMI 31.4
== END 2025-03-08 23:59 ==
LOC: CR 14:15
PROVIDERS: PCP Family Medicine; Referring Provider Internal Medicine Cardiovascular Disease; Visit Provider Internal Medicine Cardiovascular Disease
DX: I25.2 Old myocardial infarction (principal); Z95.5 Presence of coronary angioplasty implant and graft; E11.9 Type 2 diabetes mellitus without complications
CPT/HCPCS: 93798; 97802

== ENCOUNTER 2025-04-07 14:15 | Outpatient (RCR) | payer MEDICARE, SELFPAY ==
[2025-02-20 10:46] VITALS: BMI 31.4
[2025-03-09 00:41] VITALS: BP 100/60
--- NOTE | 2025-03-20 07:19 | PCM.CR.ITP ---
Exercise - Initial Assessment Physician Prescribed Exercise Modalities: Treadmill, Schwinn Airdyne AD-7 and SciFit Stepper Nutrition - Initial Assessment Weight Mgt (Other Care) Height: 5 ft 7 in Weight:: 199 lb BMI: 31.1 Core - Initial Assessment Hypertension Resting Blood Pressure:: 120/60 [employer] Hypertension Guidelines Psychosocial - Initial Assess Target Goals Target Goals Referral to Behavioral Health PS - Interventions: Yes: Attend Stress Management Classes Patient Health Questionnaire PHQ-9 Screening 60-Day Re-eval Assessment: 1. Little interest or pleasure in doing things: Several days 2. Feeling down, depressed, or hopeless: Several days 3. Trouble falling or staying asleep, or sleeping too much: More than half the days 4. Feeling tired or having little energy: Several days 5. Poor appetite or overeating: Not at all 6. Feeling bad about yourself -- or that you are a failure or have let yourself or your family down: Not at all 7. Trouble concentrating on things, such as reading the newspaper or watching television: Not at all 8. Moving or speaking so slowly that other people could have noticed. Or the opposite - being so fidgety or restless that you have been moving around a lot more than usual: Not at all 9. Thoughts that you would be better off , or of hurting yourself in some way: Not at all How difficult have these problems made it for you to do your work, take care of things at home, or get along with other people?: Not difficult at all Total Score: 5 Self-Efficacy 6-Item Scale 60-Day Re-eval Assessment: We would like to know how confident you are in doing certain activities. Please select your confidence level for: Fatigue Select Number: 5 Physical Discomfort or Pain Select Number: 5 Emotional Distress Select Number: 7 Other Symptoms or Health Problems Select Number: 5 Different Tasks and Activities Select Number: 5 Medication Select Number: 8 Total Score:: 5 Nutrition Survey Nutrition Survey Instructions Scoring Instructions Exercise - 30-day Assessment Physician Prescribed Exercise Modalities: Treadmill, Schwinn Airdyne AD-7 and SciFit Stepper Exercise - 60-day Assessment Visit Date of Eval: 03/20/25 Session #:: 20 Physician Prescribed Exercise Modalities: Treadmill, Schwinn Airdyne AD-7 and SciFit Stepper Frequency: 3x/week for 12 weeks [36 sessions] Intensity: 60-80% of age predicted maximum heart rate reserve Duration: 30 - 45 minutes Current METSs:: 5.4 Target Heart Rate:: 95-119 Maximum Excercise HR:: 111 Resting Blood Pressure: 100/62 Maximum Exercise Blood Pressure: 172/80 EKG Type: NSR to ST w/ rare PAC, PVC Outcomes & Goals Goals:: Verbalizes understanding of THR, RPE & goal METS by session 6, Documents in home exercise log/reports 30 min aerobic 5 day/wk by DC, Demonstrates accurate pulse taking by DC and Other additional outcome/goals: see below Intervention & Plan Exercise Program Goals: Instruct on personal THR & RPE, Instruct on MET level & personal MET goal, Show patient to take own pulse /validate performance until accurate, Instruct on home exercise and Other additional plan/int Physical Activity Home Exercise Physical Activity - Home Exercise: Safe Exercise, Warm-up, Self-monitoring, Cool-Down, Home Exercise > 30 min Daily and Sitting Time <3 hours/daily Outcomes & Goals Outcomes/Goals: Demonstrates correct Warm-up/exercise Cool-Down (S3) if = 2.5 METs, Verbalizes symptoms of exercise intolerance by Session 3 (S3), Demonstrate safe equipment use (S3) & follows exercise prescrition (6) and Other: See below Intervention & Plan Plan/Intervention: Instruct warm-up & cool-down if exercising at > 2 METs, Instruct on symptoms of exercise intolerance & actions to take, Instruct & monitor on saf, Assess intial functional capacity & safety risk and Other See below 30-day Reassessments 30 day Reassessments:: Progressing Reassessment Notes & Comments:: Proper warm up and cool down explained and encouraged. Pt is able to demonstrate understanding in her daily sessions. Exercise - 90-day Assessment Physician Prescribed Exercise Modalities: Treadmill, Schwinn Airdyne AD-7 and SciFit Stepper Exercise - Final/Discharge Physician Prescribed Exercise Modalities: Treadmill, Schwinn Airdyne AD-7 and SciFit Stepper Nutrition - 30-Day Assessment Weight Mgt (Other Care) Height: 5 ft 7 in Weight:: 199 lb BMI: 31.1 Nutrition - 60-Day Assessment Program Goals Nutrition Program Goals Patient has diagnosis of Hyperlipidemia (ICD E78)?: Yes Visit Date of Eval: 03/20/25 Session #:: 20 Cholesterol/Lipids (Other Core Measures) Determine presence & major risk factors that modify LDL goal: Hypertension or hypertensive medication, Low HDL cholesterol <40 mg/dL*, Family history of premature CHD in Male < 55 years: female <65 yearsFa and Age men > 45 years; women >/= 55 years Outcomes/Goals: Pt IDs own risk factors & lifestyle modifications by Session 10, Verbalizes symptoms of angina & response by session 3., Pt independently manages and Other Additional Outcomes/Goals: Intervention/Plan: Advocate for lipid panel cholesterol medication if applicable, Instruct on personal lipid levels & lipid goals/NCEP guidelines, Instruct on cholesterol and Other additional plan/int Referral to dietitian:: Yes Diabetes (Other Core Measures) Diabetes Type: Diagnosis Type II ICD-10 E11 Insulin dependent injection/pump?: Yes Non-Insulin Dependent?: Yes Do you monitor your blood sugar at home?: Yes Referral to Diabetic Clinic:: Yes Weight Mgt (Other Care) Height: 5 ft 7 in Weight:: 199 lb BMI: 31.1 Diagnosis Overweight/Obesity BMI> 30% ICD-10 E66: Yes Diagnosis High BMI/Morbid Obesity BMI> 35% ICD-10 Z68: No Outcomes/Goals: Pt sets, maintains & shows weight loss goal & trend during rehab and Other additional outcomes/goals Intervention/Plan: Instruct on ideal BMI & set weight loss goal w/patient, Assist pt to ID & incorporate diet changes for weight loss by S9, Refer to Structured Weight Loss program as appropriate, Encourage goal of using 250-300dcal per session for weight loss and Other additional plan/interventions Healthy Eating Habits Will attend diet classes:: Yes Outcomes/Goals:: Consume diet rich in vegs,fruits,whole grain/high fiber,fish,lean meat, Limit sat/trans fats,cholesterol & added salts & sugars and Other additional outcome/goals: Intervention/Plan:: Assess current eating habits and Other Additional plan/interventions 30-day Reassessments:: Progressing Reassessment Notes & Comments:: Pt has attended nutrition class. Pt referred to see our senior java web developer. Heart healthy low sodium diet encouraged. Will continue to monitor. Education Gave educational materials for:: Signs & symptoms of hypoglycemia, Signs & symptoms of hyperglycemia, Relate diabetes to coronary artery disease and Healthy eating Core - Final Assessment Hypertension Resting Blood Pressure:: 120/60 [employer] Hypertension Guidelines Core - 60-Day Assessment Visit Date of Eval: 03/20/25 Session #:: 20 Medication Compliance Preventative Medication(s):: Aspirin, JOVI inhibitor, Clopidogrel/P2Y12 inhibit, Statin/lipid and Beta charla H/O mental health issues: depression, anxiety, or addiction?: Yes Doesn’t believe in the benefits of treatment?: No Believes medications are unnecessary or harmful?: No Has a concern about medication side effects?: No Expresses concern over the cost of medications?: No Outcomes/Goals: Verbalizes medications,desired effect & common side effects @ DC, Pt self-reports following medication regimen, Keeps card in wallet w/medications listed by DC and Other additional outcome/goals: Interventions/plans: Instruct on medication effects & side effects, Review medication list w/patient every two weeks, Instruct importance of taking meds as ordered & assist problem solving and Other additional 30-day Reassessments:: Met Reassessment Notes & Comments:: Pt taking meds as prescribed. Will continue to monitor. Tobacco Use Tobacco Use: Non-smoker Hypertension Hypertension Diagnosis:: Hypertension ICD-10 I10 Resting Blood Pressure:: 100/62 Resting Blood Pressure:: 120/60 [employer] Hypertension Guidelines Peak Exercise Blood Pressure:: 172/80 Outcomes/Goals: Able to verbalize/achieve optimal blood pressure <130/80, Incorporates diet changes & exercise for blood pressure control by DC and Other additional outcomes/goals Interventions/plan: Instruct on optimal blood pressure, hypertension & medications, Instruct on effects of sodium, alcohol, stress, exercise &hypertension and Other additional plan/interventions 30 day Reassessments:: Met Reassessment Notes & Comments:: Pt's BP's are within AHA normal limits on most days. Will continue to monitor and report to physician if necessary. Tobacco Cessation Referral Smoking Cessation Referral:: No Individual Education/Counseling:: No Education Schedule Given:: Yes Psychosocial - 30-Day Assess Target Goals Target Goals Referral to Behavioral Health PS - Interventions: Yes: Attend Stress Management Classes Outcomes/Goals: See list Psychosocial Outcomes/Goals:: ID's personal stressors & 2 strategies to manage stress by discharge and Other Additional outcome/goals: Psychosocial - 60-Day Assess VIsit Date of Eval: 03/20/25 Session #:: 20 History of Emotional Disorders: Anxious and Depression Self-reported stressors Other/Comments:: Family Target Goals Target Goals Psychosocial Test Tool Used:: PHQ-9 Questionnaire phq-9 Severity See PHQ-9 Score: 5 Referral to Behavioral Health PS - Interventions: Yes: Attend Stress Management Classes Outcomes/Goals: See list Psychosocial Outcomes/Goals:: ID's personal stressors & 2 strategies to manage stress by discharge and Other Additional outcome/goals: Intervention/Plan: See List Interventions/Plan:: Assess stressors,coping strategies & signs of derpression on admission, Instruct/assist pt to develop coping & personal stress Mgt strategies, Refer to Behavioral Health if appropriate, Refer to Physician if appropriate, Instruct patient to recognize signs & symptoms of depression, Instruct patient to recog and Other additional plan/intervention 30-day Reassessments: 30 day Reassessments:: Progressing Reassessment Notes & Comments:: Pt psychosocial issues are being managed by her physician. Psychosocial - 90-Day Assess Target Goals Target Goals Referral to Behavioral Health PS - Interventions: Yes: Attend Stress Management Classes Psychosocial - Final Assessmen Target Goals Target Goals Referral to Behavioral Health PS - Interventions: Yes: Attend Stress Management Classes Nutrition - 90-Day Assessment Weight Mgt (Other Care) Height: 5 ft 7 in Weight:: 199 lb BMI: 31.1 Nutrition - Final Assessment Weight Mgt (Other Care) Height: 5 ft 7 in Weight:: 199 lb BMI: 31.1
[2025-03-20 07:31] VITALS: BP 100/62; BP 120/60; BMI 31.1
[2025-03-25 16:22] LABS: Bedside Glucose 151 mg/dL (74-106)
== END 2025-04-07 23:59 ==
LOC: CR 14:15
PROVIDERS: PCP Family Medicine; Referring Provider Internal Medicine Cardiovascular Disease; Visit Provider Internal Medicine Cardiovascular Disease
DX: I21.4 Non-ST elevation (NSTEMI) myocardial infarction (principal); Z95.5 Presence of coronary angioplasty implant and graft
CPT/HCPCS: 82962; 93798

== ENCOUNTER 2025-05-07 14:15 | Outpatient (RCR) | payer MEDICARE, SELFPAY ==
[2025-03-20 07:31] VITALS: BMI 31.1
--- NOTE | 2025-04-17 09:21 | CR.ITP_ITS ---
Exercise - Initial Assessment Physician Prescribed Exercise Modalities: Treadmill, Rower, Schwinn Airdyne AD-7, SciFit Stepper, SciFit Pro- II Ergometer and SciFit Lateral [employer] Instructor Nutrition - Initial Assessment Weight Mgt (Other Care) Height: 5 ft 7 in Weight:: 196 lb BMI: 30.7 Psychosocial - Initial Assess Target Goals Target Goals Referral to Behavioral Health PS - Interventions: Yes: Attend Stress Management Classes Patient Health Questionnaire PHQ-9 Screening 90-Day Re-eval Assessment: 1. Little interest or pleasure in doing things: Several days 2. Feeling down, depressed, or hopeless: Several days 3. Trouble falling or staying asleep, or sleeping too much: More than half the days 4. Feeling tired or having little energy: Several days 5. Poor appetite or overeating: Not at all 6. Feeling bad about yourself -- or that you are a failure or have let yourself or your family down: Not at all 7. Trouble concentrating on things, such as reading the newspaper or watching television: Not at all 8. Moving or speaking so slowly that other people could have noticed. Or the opposite - being so fidgety or restless that you have been moving around a lot more than usual: Not at all 9. Thoughts that you would be better off , or of hurting yourself in some way: Not at all How difficult have these problems made it for you to do your work, take care of things at home, or get along with other people?: Not difficult at all Total Score: 5 Self-Efficacy 6-Item Scale 90-Day Re-eval Assessment: We would like to know how confident you are in doing certain activities. Please select your confidence level for: Fatigue Select Number: 5 Physical Discomfort or Pain Select Number: 5 Emotional Distress Select Number: 7 Other Symptoms or Health Problems Select Number: 5 Different Tasks and Activities Select Number: 5 Medication Select Number: 8 Total Score:: 5 Nutrition Survey Nutrition Survey Instructions Scoring Instructions Exercise - 30-day Assessment Physician Prescribed Exercise Modalities: Treadmill, Rower, Schwinn Airdyne AD-7, SciFit Stepper, SciFit Pro- II Ergometer and SciFit Lateral [place] Exercise - 60-day Assessment Physician Prescribed Exercise Modalities: Treadmill, Rower, Schwinn Airdyne AD-7, SciFit Stepper, SciFit Pro- II Ergometer and SciFit Lateral [place] Exercise - 90-day Assessment Visit Date of Eval: 04/17/25 Session #:: 28 Physician Prescribed Exercise Modalities: Treadmill, Rower, Nanette Mohandyne AD-7, SciFit Stepper, SciFit Pro- II Ergometer and SciFit Lateral [place] Frequency: 3x/week for 12 weeks [36 sessions] Intensity: 60-80% of age predicted maximum heart rate reserve Duration: 30 - 45 minutes METs - Progression 0.5-1.0 weekly:: 0.5-1.0 Current METSs:: 6 Target Heart Rate:: 95-134 Target RPE 12-16:: 12-16 Current RPE:: 13 Maximum Excercise HR:: 124 Resting Blood Pressure: 132/68 Maximum Exercise Blood Pressure: 164/74 EKG Type: NSR to ST with rare pac/pvc Current Physical Activity or Exercising minutes: 30-45 Outcomes & Goals Goals:: Verbalizes understanding of THR, RPE & goal METS by session 6, Documents in home exercise log/reports 30 min aerobic 5 day/wk by DC and Demonstrates accurate pulse taking by DC Intervention & Plan Exercise Program Goals: Instruct on personal THR & RPE, Instruct on MET level & personal MET goal, Show patient to take own pulse /validate performance until accurate and Instruct on home exercise 30-day Reassessments 30 day Reassessments:: Met Reassessment Notes & Comments:: Pt can take own pulse, pt remaining active outside class Physical Activity Home Exercise Physical Activity - Home Exercise: Safe Exercise, Warm-up, Self-monitoring, Cool-Down, Home Exercise > 30 min Daily and Sitting Time <3 hours/daily Outcomes & Goals Outcomes/Goals: Demonstrates correct Warm-up/exercise Cool-Down (S3) if = 2.5 METs, Verbalizes symptoms of exercise intolerance by Session 3 (S3) and Demonstrate safe equipment use (S3) & follows exercise prescrition (6) Intervention & Plan Plan/Intervention: Instruct warm-up & cool-down if exercising at > 2 METs, Instruct on symptoms of exercise intolerance & actions to take, Instruct & mo nitor on saf and Assess intial functional capacity & safety risk 30-day Reassessments 30 day Reassessments:: Met Reassessment Notes & Comments:: Pt demonstrates proper warm up and cool down with no prompting and exercises safetly. Exercise - Final/Discharge Physician Prescribed Exercise Modalities: Treadmill, Rower, Schwinn Airdyne AD-7, SciFit Stepper, SciFit Pro- II Ergometer and SciFit Lateral [employer] Instructor Nutrition - 30-Day Assessment Weight Mgt (Other Care) Height: 5 ft 7 in Weight:: 196 lb BMI: 30.7 Nutrition - 60-Day Assessment Weight Mgt (Other Care) Height: 5 ft 7 in Weight:: 196 lb BMI: 30.7 Core - 30-Day Assessment Hypertension [place] [employer] Hypertension Guidelines Reassessment Notes & Comments:: Pt taking all medications as prescribed, working to decrease stressors in her life and maintain a healthy lifestyle and low sodium diet Core - Final Assessment Hypertension [place] [employer] Hypertension Guidelines Reassessment Notes & Comments:: Pt taking all medications as prescribed, working to decrease stressors in her life and maintain a healthy lifestyle and low sodium diet Core - 90 Day Assessment Visit Date of Eval: 04/17/25 Session #:: 28 Medication Compliance Preventative Medication(s):: Aspirin, JOVI inhibitor, Clopidogrel/P2Y12 inhibit, Statin/lipid and Beta charla H/O mental health issues: depression, anxiety, or addiction?: Yes Doesn?t believe in the benefits of treatment?: No Believes medications are unnecessary or harmful?: No Has a concern about medication side effects?: No Expresses concern over the cost of medications?: No Outcomes/Goals: Verbalizes medications,desired effect & common side effects @ DC, Pt self-reports following medication regimen and Keeps card in wallet w/medications listed by DC Interventions/plans: Instruct on medication effects & side effects, Review medication list w/patient every two weeks and Instruct importance of taking meds as ordered & assist problem solving 30-day Reassessments:: Met Reassessment Notes & Comments:: Pt taking all medications as prescribed and working with PCP to optimize medication regimen Tobacco Use Tobacco Use: Non-smoker Hypertension Hypertension Diagnosis:: Hypertension ICD-10 I10 Resting Blood Pressure:: 132/68 [place] [employer] Hypertension Guidelines Peak Exercise Blood Pressure:: 164/74 Outcomes/Goals: Able to verbalize/achieve optimal blood pressure <130/80 and Incorporates diet changes & exercise for blood pressure control by DC Interventions/plan: Instruct on optimal blood pressure, hypertension & medications and Instruct on effects of sodium, alcohol, stress, exercise &hyp ertension 30 day Reassessments:: Progressing Reassessment Notes & Comments:: Pt taking all medications as prescribed, working to decrease stressors in her life and maintain a healthy lifestyle and low sodium diet Tobacco Cessation Referral Smoking Cessation Referral:: No Psychosocial - 30-Day Assess Target Goals Target Goals Referral to Behavioral Health PS - Interventions: Yes: Attend Stress Management Classes Psychosocial - 60-Day Assess Target Goals Target Goals Referral to Behavioral Health PS - Interventions: Yes: Attend Stress Management Classes Psychosocial - 90-Day Assess VIsit Date of Eval: 04/17/25 Session #:: 28 History of previous Mental disease:: Yes History of Emotional Disorders: Anxious and Depression Self-reported stressors Other/Comments:: Family Target Goals Target Goals Psychosocial Test Tool Used:: PHQ-9 Questionnaire phq-9 Severity See PHQ-9 Score: 5 Referral to Behavioral Health PS - Interventions: Yes: Attend Stress Management Classes Outcomes/Goals: See list Psychosocial Outcomes/Goals:: ID's personal stressors & 2 strategies to manage stress by discharge Intervention/Plan: See List Interventions/Plan:: Assess stressors,coping strategies & signs of derpression on admission, Instruct/assist pt to develop coping & personal stress Mgt strategies, Refer to Behavioral Health if appropriate, Refer to Physician if appropriate and Instruct patient to recognize signs & symptoms of depression 30-day Reassessments: 30 day Reassessments:: Met Reassessment Notes & Comments:: Pt working with her physician to manage psychosocial issues and mental health medications, pt denies any further needs from us at this time Psychosocial - Final Assessmen Target Goals Target Goals Referral to Behavioral Health PS - Interventions: Yes: Attend Stress Management Classes Nutrition - 90-Day Assessment Program Goals Nutrition Program Goals Patient has diagnosis of Hyperlipidemia (ICD E78)?: Yes Visit Date of Eval: 04/17/25 Session #:: 28 Cholesterol/Lipids (Other Core Measures) Triglycerides (mg/dL): 185 Total Cholesterol (mg/dL): 192 LDL Cholesterol (mg/dL): 105 HDL Cholesterol (mg/dL): 50 Lipid Medication: atorvastatin 40mg QHS Determine presence & major risk factors that modify LDL goal: Cigarette smoking, Hypertension or hypertensive medication, Low HDL cholesterol <40 mg/dL* and Age men > 45 years; women >/= 55 years Outcomes/Goals: Pt IDs own risk factors & lifestyle modifications by Session 10, Verbalizes symptoms of angina & response by session 3. and Pt independently manages Intervention/Plan: Advocate for lipid panel cholesterol medication if applica ble, Instruct on personal lipid levels & lipid goals/NCEP guidelines and Instruct on cholesterol 30-day Reassessments:: Met Reassessment Notes & Comments:: PT taking lipid medications as prescribed, pt with recent lipid profile in November 2024 Diabetes (Other Core Measures) Diabetes Type: Diagnosis Type II ICD-10 E11 Hgb A1C (4.2 -6.3): 10 Insulin dependent injection/pump?: Yes Do you monitor your blood sugar at home?: Yes Outcomes/Goals:: Able to state symptoms of (hyperglycemia, hypoglycemia) Intervention/Plan:: Instruct on (what to do when BS gets low) 30-day Reassessments:: Progressing Reassessment Notes & Comments:: Pt independently monitors BS with device, pt taking insulin as prescribed and working to maintain CC diet, pt working with PCP to optimize BS and medications Weight Mgt (Other Care) Height: 5 ft 7 in Weight:: 196 lb BMI: 30.7 Diagnosis Overweight/Obesity BMI> 30% ICD-10 E66: Yes Diagnosis High BMI/Morbid Obesity BMI> 35% ICD-10 Z68: No Outcomes/Goals: Pt sets, maintains & shows weight loss goal & trend during rehab Intervention/Plan: Instruct on ideal BMI & set weight loss goal w/patient, Assist pt to ID & incorporate diet changes for weight loss by S9, Refer to Structured Weight Loss program as appropriate and Encourage goal of using 250- 300dcal per session for weight loss 30 day Reassessments:: Progressing Reassessment Notes & Comments:: Pt continues to lose weight, weigh in every Monday and working towards maintaining a healthy lifestyle Healthy Eating Habits Will attend diet classes:: Yes Outcomes/Goals:: Consume diet rich in vegs,fruits,whole grain/high fiber,fish,le an meat and Limit sat/trans fats,cholesterol & added salts & sugars Intervention/Plan:: Assess current eating habits 30-day Reassessments:: Met Reassessment Notes & Comments:: Pt attended all diet classes Education Gave educational materials for:: Signs & symptoms of hypoglycemia, Signs & symptoms of hyperglycemia, Relate diabetes to coronary artery disease and Healthy eating Nutrition - Final Assessment Weight Mgt (Other Care) Height: 5 ft 7 in Weight:: 196 lb BMI: 30.7
[2025-04-17 09:24] VITALS: BP 132/68
[2025-04-17 09:33] VITALS: BP 132/68; BMI 30.7
== END 2025-05-08 23:59 ==
LOC: CR 14:15
PROVIDERS: PCP Family Medicine; Referring Provider Internal Medicine Cardiovascular Disease; Visit Provider Internal Medicine Cardiovascular Disease
DX: I21.4 Non-ST elevation (NSTEMI) myocardial infarction (principal); Z95.5 Presence of coronary angioplasty implant and graft
CPT/HCPCS: 93798

== ENCOUNTER 2025-05-12 14:30 | Outpatient (RCR) | payer MEDICARE, SELFPAY ==
[2025-04-17 09:33] VITALS: BMI 30.7
== END 2025-06-08 23:59 ==
LOC: CR 14:30
PROVIDERS: PCP Family Medicine; Referring Provider Internal Medicine Cardiovascular Disease; Visit Provider Internal Medicine Cardiovascular Disease
DX: I21.4 Non-ST elevation (NSTEMI) myocardial infarction (principal); Z95.5 Presence of coronary angioplasty implant and graft
CPT/HCPCS: 93798